=== PATIENT | female | born 1965 | race Two or more races ===

== ENCOUNTER 2020-01-31 10:56 | Outpatient (REF) | payer OTHER, SELFPAY | END 2020-01-31 10:57 | disposition home or self-care (01) | LOC: HO.LAB 10:56 | PROVIDERS: PCP Internal Medicine; Visit Provider Internal Medicine | DX: Z20.828 Contact with and (suspected) exposure to other viral communicable diseases (principal) | CPT/HCPCS: 87635 ==

== ENCOUNTER 2020-03-18 15:28 | Outpatient (REF) | payer OTHER, SELFPAY ==
--- NOTE | 2020-03-18 15:30 | US_ITS ---
EXAMINATION: US THYROID CLINICAL INFORMATION: Hypothyroidism, unspecified. COMPARISON: Ultrasound soft tissue head/neck thyroid dated 07/18/2018 and 11/27/2014. TECHNIQUE: Linear transducer nunes-scale and color Doppler examination with attention to the region of the thyroid. FINDINGS: SIZE: Measurements of the thyroid lobes and nodules are given in sagittal, anteroposterior and transverse dimensions respectively. Right Thyroid Lobe: 4.6 x 2.5 x 1.8 cm, volume 10.8 mL. Previously 5.0 x 2.3 x 1.7 cm, volume 10.4 mL. Parenchyma: The gland echotexture is heterogeneous. Thyroid vascularity is normal. Left Thyroid Lobe: 4.4 x 2.1 x 1.7 cm, volume 8.2 mL. Previously 4.8 x 1.6 x 1.5 cm, volume 6.0 mL. Parenchyma: The gland echotexture is heterogeneous. Thyroid vascularity is normal. Isthmus: 0.7 cm in maximum AP dimension. Previously 0.5 cm. RIGHT THYROID LOBE: No nodules. ISTHMUS: No nodules. LEFT THYROID LOBE: No nodules. NODES: No lymphadenopathy is seen in the tissue surrounding the thyroid gland. US/US thyroid IMPRESSION: Slightly heterogenous thyroid gland, but otherwise unremarkable. No nodules seen.
== END 2020-03-18 15:29 | disposition home or self-care (01) ==
LOC: HO.US 15:28
PROVIDERS: PCP Internal Medicine; Visit Provider Internal Medicine
DX: E03.9 Hypothyroidism, unspecified (principal)
CPT/HCPCS: 76536

== ENCOUNTER 2020-04-26 13:48 | Emergency (ER) | payer OTHER, SELFPAY ==
[2020-04-26 14:41] VITALS: BP 169/88; PULSE 71; RESP 16; TEMP 37.1; O2SAT 99; BMI 34.3
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
== END 2020-04-26 16:16 | disposition home or self-care (01) ==
PROVIDERS: Emergency Provider Emergency Medicine; PCP Internal Medicine
DX: S39.012A Strain of muscle, fascia and tendon of lower back, initial encounter (principal); I10 Essential (primary) hypertension; V43.52XA Car driver injured in collision with other type car in traffic accident, initial encounter; Y93.9 Activity, unspecified; Y92.410 Unspecified street and highway as the place of occurrence of the external cause; Y99.9 Unspecified external cause status; Z79.899 Other long term (current) drug therapy; Z87.891 Personal history of nicotine dependence
CPT/HCPCS: 99283

== ENCOUNTER 2020-04-28 10:56 | Outpatient (REF) | payer OTHER, SELFPAY ==
--- NOTE | 2020-04-28 11:00 | MM_ITS ---
EXAMINATION: MM SCREENING DIGITAL BREAST TOMOSYNTHESIS, BILATERAL CLINICAL INFORMATION: Screening. Asymptomatic. The lifetime risk of breast cancer based on the Tyrer-Cuzick Model is 17%. COMPARISON: Mammography: 10/13/2018, 09/20/2017, 08/23/2016 TECHNIQUE: Digital breast tomosynthesis is performed in both the craniocaudal and mediolateral oblique views along with computer-aided detection (CAD). Synthesized 2D images are generated from the tomosynthesis. FINDINGS: The breasts are heterogeneously dense, which may obscure small masses (ACR BI-RADS breast composition Category c). There are no significant masses, abnormal calcifications, or other abnormalities. Fibronodular parenchymal pattern with bilateral scattered punctate calcifications are similar to prior. There is a stable smooth oval nodule posterior 8:30 o'clock left breast. The axilla and skin contours are unremarkable. No significant changes. MM/MM tomosynthesis screening BI IMPRESSION: No mammographic evidence of malignancy. ASSESSMENT: BI-RADS 2: Benign RECOMMENDATION: Routine annual mammography screening. This patient's information was entered into a reminder system with a target due date for their next mammogram.
== END 2020-04-28 10:57 | disposition home or self-care (01) ==
LOC: HO.MAMMO 10:56
PROVIDERS: PCP Internal Medicine; Visit Provider Internal Medicine
DX: Z12.31 Encounter for screening mammogram for malignant neoplasm of breast (principal)
CPT/HCPCS: 77063; 77067

== ENCOUNTER 2020-06-11 11:54 | Outpatient (REF) | payer OTHER, SELFPAY | END 2020-06-11 11:55 | disposition home or self-care (01) | LOC: HO.LAB 11:54 | PROVIDERS: Visit Provider Internal Medicine | DX: Z20.822 Contact with and (suspected) exposure to COVID-19 (principal) | CPT/HCPCS: 36415; C9803; U0003; U0005 ==

== ENCOUNTER 2020-08-29 20:31 | Emergency (ER) | payer OTHER, SELFPAY ==
--- NOTE | ~2020-08-29 | XR_ITS ---
EXAMINATION: XR WRIST, LEFT CLINICAL INFORMATION: Fall. Pain and swelling. COMPARISON: None TECHNIQUE: PA, lateral, and oblique views of the left wrist. FINDINGS: Complete transverse impacted fracture through the distal radial metaphysis with mild dorsal angulation at the fracture site. Wrist is approximated. No other fractures are seen. Mild soft tissue swelling about the wrist. Metallic jewelry overlies the fourth proximal phalanx. No radiopaque foreign body. No soft tissue gas. XR/XR wrist LT min 3V IMPRESSION: Left wrist: Complete, impacted transverse fracture through the distal radial metaphysis with dorsal angulation at the fracture site
[2020-08-29 20:44] VITALS: BP 179/86; PULSE 78; RESP 20; TEMP 36.1; O2SAT 98; BMI 34.3
--- NOTE | 2020-08-29 21:46 | ED_ITS ---
HPI - Extremity Problem General Chief complaint: Extremity Injury, Upper Stated complaint: Arm pain/Fall Time Seen by Provider: 08/29/20 21:46 Source: patient Mode of arrival: ambulatory History of Present Illness HPI Narrative: 55-year-old female who presents from home and states that she was roller skating when she fell onto her left wrist. Patient reports inability to move the wrist but able to bend her fingers and states that she noted swelling afterwards. She denies any head strike or loss of consciousness. Otherwise, denies numbness/tingling into the fingers. Related Data Home Medications Medication Instructions Recorded Confirmed amlodipine 10 mg tablet 10 mg PO DAILY 02/04/20 05/18/20 clotrimazole 1 % topical solution TOPICAL 02/04/20 05/18/20 levothyroxine 125 mcg tablet 125 mcg PO DAILY 02/04/20 05/18/20 lisinopril 20 mg tablet 20 mg PO DAILY 02/04/20 05/18/20 Previous Rx's Medication Instructions Recorded ibuprofen 600 mg tablet 600 mg PO Q6H PRN #30 tab 04/30/20 cyclobenzaprine 5 mg tablet 5 mg PO TID PRN #30 tab 05/18/20 triamcinolone acetonide 0.5 % 1 appl TOPICAL TID #15 g 08/20/20 topical cream Allergies Allergy/AdvReac Type Severity Reaction Status Date / Time mite-Dermatophagoides Allergy Unknown RASH, Verified 08/29/20 20:48 pteronyssinus SWELLING [DUST MITE] pollen extracts [POLLEN] Allergy Unknown RUNNY Verified 08/29/20 20:48 NOSE, ITCHY EYES Review of Systems Review of Systems: As stated in HPI 10 point review of systems is otherwise negative. PMFSH Past Medical History Source: nursing notes reviewed Medical History Hypercholesterolemia Hypertension Hypothyroid Left fibular fracture Obesity (BMI 30-39.9) Vitamin D deficiency Surgical History H/O tubal ligation Family History Family History Father Medical history unknown Mother Cancer CVD (cardiovascular disease) Diabetes Paternal Grandmother Esophageal cancer Maternal Uncle Myocardial infarction Social History Social History Alcohol intake: never Smoking Status: Former smoker Smoked in Last 30 Days: No Use of substances other than those prescribed or required for medical reasons: No Any prior treatment program specific to substance use: No Advance Directives: No Advance Directives Information Provided: No Patient : No Physical Exam Vital Signs: Vital Signs: Last Vital Signs Temp 97.0 F 08/29/20 20:44 Pulse 78 08/29/20 20:44 Resp 20 08/29/20 20:44 BP 179/86 H 08/29/20 20:44 Pulse Ox 98 08/29/20 20:44 Body Mass Index 34.3 VITAL SIGNS: Reviewed. GENERAL: Well developed, well nourished, in no acute distress. HEAD: Normocephalic/atraumatic EYES: PERRLA, EOMI NOSE: Nares patent bilateral OROPHARYNX: no oral lesions noted, posterior pharynx clear NECK: Supple, no adenopathy LUNGS: Normal breath sounds. No adventitious sounds or accessory muscle use. SpO2<98> CARDIOVASCULAR: Regular rate and rhythm without noted murmurs ABDOMEN: Soft, non-tender, non-distended with bowel sounds. LEFT UPPER EXTREMITY: Deformity noted at dorsal aspect of wrist with mild overlying swelling, sensation intact in all fingers as well as movement, capillary refill less than 3 seconds, palpable radius/ulnar NEUROLOGIC: Alert and oriented x 4. Strength and sensation to light touch were grossly intact x 4. Course Course Course Narrative: 55-year-old female with history and clinical presentation consistent with FOOSH fracture and placed in sugar-tong splint as well as being provided with combination analgesics for pain. She was discharged in stable condition with instructions to follow-up with orthopedics on Monday morning. Discharge Plan Discharge Clinical Impression: Colles' fracture Patient Disposition: Home, Self-Care Instructions: Wrist Fracture in Adults (ED), Splint Care (ED) Additional Instructions: 1. Tylenol 1000 mg, por v?a oral, cada 6 horas seg?n sea necesario para controlar el dolor. No exceda los 4000 mg en 24 horas. 2. Ibuprofeno 400 mg, por v?a oral con leche o alimentos, cada 6 horas seg?n sea necesario para controlar el dolor. 3. Aplique hielo sobre la piel no expuesta tari 10 a 15 minutos, de 3 a 4 veces al d?a. 4. Opal un seguimiento con el especialista en ortopedia que se indica en la referencia a continuaci?n. No dude en volver al servicio de urgencias por cualquier empeoramiento gabriel de dylan s?ntomas. Prescriptions: No Action cyclobenzaprine 5 mg tablet 5 mg PO TID PRN (Reason: muscle spasm) Qty: 30 RF: 0 triamcinolone acetonide 0.5 % cream 1 appl topical TID Qty: 15 RF: 8 clotrimazole 1 % solution topical RF: 0 amlodipine 10 mg tablet 10 mg PO DAILY RF: 0 lisinopril 20 mg tablet 20 mg PO DAILY RF: 0 levothyroxine 125 mcg tablet 125 mcg PO DAILY RF: 0 ibuprofen 600 mg tablet 600 mg PO Q6H PRN (Reason: pain) Qty: 30 RF: 1 Referrals: Po,Dakota Guerrero MD [Primary Care Provider] - 2 days Cordell Ramirez MD [Physician] - 2 days (Evaluation and management of Colles fracture (left) and placed in a sugar-tong splint) Print Language: Vietnamese
[2020-08-29] MEDS: Acetaminophen 325 MG TABLET 975 MG PO (22:26)
[2020-08-29] MEDS: Ketorolac Tromethamine 15 MG/ML VIAL IM (22:26)
--- NOTE | 2020-08-29 23:24 | PC.NURSE ---
PT SPLINT PLACE TO LEFT ARM SUGAR TONG CHECK BY DR. TAVAREZ. +CMS TO FINGERS.
== END 2020-08-29 23:25 | disposition home or self-care (01) ==
PROVIDERS: Emergency Provider Student in an Organized Health Care Education/Training Program; PCP Internal Medicine
DX: S52.532A Colles' fracture of left radius, initial encounter for closed fracture (principal); V00.121A Fall from non-in-line roller-skates, initial encounter; Y93.51 Activity, roller skating (inline) and skateboarding; Y92.480 Sidewalk as the place of occurrence of the external cause; Y99.9 Unspecified external cause status
CPT/HCPCS: 29125; 73110; 96372; 99284; J1885

== ENCOUNTER 2020-09-01 11:09 | Outpatient (REF) | payer OTHER, SELFPAY ==
--- NOTE | ~2020-09-01 | XR_ITS ---
EXAMINATION: XR WRIST, LEFT CLINICAL INFORMATION: Left wrist pain. COMPARISON: 08/29/2020 TECHNIQUE: PA, lateral, and oblique views of the left wrist. FINDINGS: There is again noted to be comminuted fracture involving the distal left radius and nondisplaced distal ulnar styloid. There is mild dorsal angulation of the radiocarpal joint. There appears to be some more displacement of fracture fragments both dorsally and volarly; however, this may be related to differences in angulation of the lateral images as no change in alignment is appreciated on the AP and oblique views of the wrist. The distal radial fracture is intra-articular. XR/XR wrist LT min 3V IMPRESSION: Comminuted distal radial and ulnar styloid fractures as described. No definite significant change is appreciated.
== END 2020-09-01 11:10 | disposition home or self-care (01) ==
LOC: HO.HOSX 11:09
PROVIDERS: PCP Internal Medicine; Visit Provider Orthopaedic Surgery
DX: M25.532 Pain in left wrist (principal); S52.515S Nondisplaced fracture of left radial styloid process, sequela; W01.0XXS Fall on same level from slipping, tripping and stumbling without subsequent striking against object, sequela; E78.00 Pure hypercholesterolemia, unspecified; E03.9 Hypothyroidism, unspecified; I10 Essential (primary) hypertension; E66.9 Obesity, unspecified; E55.9 Vitamin D deficiency, unspecified; J30.1 Allergic rhinitis due to pollen; J30.89 Other allergic rhinitis
CPT/HCPCS: 73110; 99202

== ENCOUNTER → 2020-09-03 12:52 | Outpatient (BNVA) | payer OTHER, SELFPAY | PROVIDERS: PCP Internal Medicine; Visit Provider Physician Assistant ==

== ENCOUNTER 2020-09-07 09:17 | Outpatient (REF) | payer OTHER, SELFPAY ==
--- NOTE | ~2020-09-07 | XR_ITS ---
EXAMINATION: XR WRIST, LEFT CLINICAL INFORMATION: Left wrist pain. COMPARISON: Multiple priors, most recent left wrist radiographs dated 09/01/2020. TECHNIQUE: PA, lateral, and oblique views of the left wrist. FINDINGS: Redemonstration of a comminuted distal radial fracture in unchanged anatomic alignment with mild new bone/callus formation. Nondisplaced ulnar styloid fracture, unchanged. Circumferential soft tissue swelling. XR/XR wrist LT min 3V IMPRESSION: Redemonstration of distal radial and ulnar styloid fracture is in unchanged anatomic alignment. Mild new bone/callus formation associated with the distal radial fracture.
== END 2020-09-07 09:18 | disposition home or self-care (01) ==
LOC: HO.HOSX 09:17
PROVIDERS: Visit Provider Orthopaedic Surgery
DX: S52.615A Nondisplaced fracture of left ulna styloid process, initial encounter for closed fracture (principal); S52.502A Unspecified fracture of the lower end of left radius, initial encounter for closed fracture; W18.39XA Other fall on same level, initial encounter; Y93.51 Activity, roller skating (inline) and skateboarding; Y92.9 Unspecified place or not applicable; Y99.9 Unspecified external cause status
CPT/HCPCS: 25600; 73110; 99212

== ENCOUNTER 2020-09-12 04:34 | Emergency (ER) | payer OTHER, SELFPAY ==
[2020-09-12 04:47] VITALS: BP 209/110; PULSE 87; RESP 20; TEMP 35.9; O2SAT 96; BMI 35.3
[2020-09-12 07:24] VITALS: BP 209/105; PULSE 78; RESP 20; TEMP 36.6; O2SAT 98; BMI 34.3
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
== END 2020-09-12 09:03 | disposition home or self-care (01) ==
PROVIDERS: Emergency Provider Emergency Medicine; PCP Internal Medicine
DX: M79.632 Pain in left forearm (principal); S52.532D Colles' fracture of left radius, subsequent encounter for closed fracture with routine healing; X58.XXXD Exposure to other specified factors, subsequent encounter
CPT/HCPCS: 99283

== ENCOUNTER 2020-09-15 14:26 | Outpatient (REF) | payer OTHER, SELFPAY ==
--- NOTE | ~2020-09-15 | XR_ITS ---
EXAMINATION: XR WRIST, LEFT CLINICAL INFORMATION: Pain COMPARISON: 09/07/2020 and studies dating back to 08/29/2020 . TECHNIQUE: PA, lateral, and oblique views of the left wrist. FINDINGS: There is again noted to be comminuted intra-articular fracture of the distal left radius with no change in alignment compared to previous studies. There appears to be similar mild amount of periostitis present compared to previous study but without bony union being appreciated. Nondisplaced fracture of the left ulna styloid again seen. XR/XR wrist LT min 3V IMPRESSION: No significant change in appearance of nondisplaced ulnar styloid fracture and intra-articular comminuted fracture of the left distal radius.
== END 2020-09-15 14:27 | disposition home or self-care (01) ==
LOC: HO.HOSX 14:26
PROVIDERS: PCP Internal Medicine; Visit Provider Orthopaedic Surgery
DX: M25.532 Pain in left wrist (principal); S52.502A Unspecified fracture of the lower end of left radius, initial encounter for closed fracture; S52.615S Nondisplaced fracture of left ulna styloid process, sequela
CPT/HCPCS: 29075; 73110; 99212

== ENCOUNTER 2020-09-23 10:57 | Outpatient (REF) | payer OTHER, SELFPAY ==
--- NOTE | ~2020-09-23 | XR_ITS ---
EXAMINATION: XR WRIST, LEFT CLINICAL INFORMATION: Left wrist pain. Fracture. COMPARISON: Multiple priors, most recent left wrist radiographs dated 09/15/2020. TECHNIQUE: PA, lateral, and oblique views of the left wrist. FINDINGS: Redemonstration of a mildly displaced, comminuted distal radial fracture in unchanged anatomic alignment. Stable nondisplaced ulnar styloid fracture. No significant new bone/callus formation. XR/XR wrist LT min 3V IMPRESSION: Comminuted distal radial fracture and ulnar styloid fracture in unchanged anatomic alignment.
== END 2020-09-23 10:58 | disposition home or self-care (01) ==
LOC: HO.HOSX 10:57
PROVIDERS: Visit Provider Orthopaedic Surgery
DX: S52.572D Other intraarticular fracture of lower end of left radius, subsequent encounter for closed fracture with routine healing (principal)
CPT/HCPCS: 29075; 73110; 99212

== ENCOUNTER 2020-10-01 08:10 | Outpatient (REF) | payer OTHER, SELFPAY ==
--- NOTE | ~2020-10-01 | XR_ITS ---
EXAMINATION: XR WRIST, LEFT CLINICAL INFORMATION: Left wrist pain. COMPARISON: 09/23/2020 and studies dating back to 08/29/2020 TECHNIQUE: PA, lateral, and oblique views of the left wrist. FINDINGS: There is noted to be a nondisplaced left ulnar styloid fracture with a small amount of periosteal new bone formation. There is again noted to be a comminuted intra-articular fracture of the distal radius with no change in alignment with mild dorsal angulation radiocarpal joint. There has been an increase in periosteal new bone formation present with some regions of sclerosis about the fracture sites. XR/XR wrist LT min 3V IMPRESSION: Healing fractures about the left ulnar styloid and distal intra-articular comminuted left radial fracture without change in alignment.
== END 2020-10-01 08:11 | disposition home or self-care (01) ==
LOC: HO.HOSX 08:10
PROVIDERS: Visit Provider Physician Assistant
DX: S52.615D Nondisplaced fracture of left ulna styloid process, subsequent encounter for closed fracture with routine healing (principal); S52.502D Unspecified fracture of the lower end of left radius, subsequent encounter for closed fracture with routine healing; X58.XXXD Exposure to other specified factors, subsequent encounter
CPT/HCPCS: 73110; 99212

== ENCOUNTER 2020-10-05 10:11 | Outpatient (REF) | payer OTHER, SELFPAY ==
--- NOTE | ~2020-10-05 | XR_ITS ---
EXAMINATION: XR WRIST, LEFT CLINICAL INFORMATION: Pain left wrist COMPARISON: Left wrist 10/01/2020 TECHNIQUE: PA, lateral, and oblique views of the left wrist. FINDINGS: There is a slowly healing distal radial comminuted fracture with intra-articular extension. There is some callus formation seen on the radial aspect. There is mild dorsal angulation. Nondisplaced ulnar styloid process fracture again visualized. There is some callus formation visualized. There is moderate wrist soft tissue swelling. XR/XR wrist LT min 3V IMPRESSION: Slowly healing distal radial comminuted fracture with intra-articular extension and minimal callus formation. Nondistended a loss of process fracture with minimal callus formation seen.
== END 2020-10-05 10:12 | disposition home or self-care (01) ==
LOC: HO.HOSX 10:11
PROVIDERS: Visit Provider Orthopaedic Surgery
DX: M25.532 Pain in left wrist (principal); S52.502D Unspecified fracture of the lower end of left radius, subsequent encounter for closed fracture with routine healing; S52.615D Nondisplaced fracture of left ulna styloid process, subsequent encounter for closed fracture with routine healing
CPT/HCPCS: 73110; 99212

== ENCOUNTER 2020-10-19 09:34 | Outpatient (REF) | payer OTHER, SELFPAY ==
--- NOTE | ~2020-10-19 | XR_ITS ---
EXAMINATION: XR WRIST, LEFT CLINICAL INFORMATION: Left wrist pain. COMPARISON: 10/05/2020 left wrist radiographs. TECHNIQUE: PA, lateral, and oblique views of the left wrist. FINDINGS: Again seen are fractures of the distal radius and ulnar styloid without evidence for minimal interval healing. The ulnar styloid fracture remains nonunited with increased cortication of the fragments. Persistent mild soft tissue swelling is seen. XR/XR wrist LT min 3V IMPRESSION: Mild interval healing of distal radial and ulnar fractures with persistent soft tissue swelling.
== END 2020-10-19 09:35 | disposition home or self-care (01) ==
LOC: HO.HOSX 09:34
PROVIDERS: Visit Provider Orthopaedic Surgery
DX: S52.532D Colles' fracture of left radius, subsequent encounter for closed fracture with routine healing (principal)
CPT/HCPCS: 73110; 99212

== ENCOUNTER 2020-12-22 10:00 | Outpatient (RCR) | payer OTHER, SELFPAY ==
--- NOTE | 2020-10-29 14:58 | MHC.OT.OEV ---
[address] [phone] F: [phone] Occupational Therapy Evaluation Diagnosis: Left Colles fx and non-displaced ulnar styloid fx Date of Onset: 08/29/20 Attending Provider: Dr Murphy Prescribed Treatment: Eval and Treat History of Current Condition: Pt was rollerblading and slipped while she was standing and holding the rail, rollerblade went out from under her and she fell back on her hand/wrist. Pt was seen in the ED that day, placed in sugar-tong splint and referred to [facility]. Plan was for surgical repair w/ ORIF 09/08/20, but patient declined surgery. Wrist was placed in short cast. She has since followed up with the doctor, cast removed 09/29/20 and wearing removable pre-eloisa orthosis. She is now referred to OT for further rehab. 10/19/20: Radiographs three views of her left wrist were taken and reviewed by me today in clinic. They show a comminuted intra-articular distal radius fracture with Good evidence of interval bony healing. It appears that she now has approximately 15-18 degrees of dorsal tilt on the lateral view. no change in alignment today. 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 Living Situation, Family and/or Social Support: Lives w/ her son Current Level of Function and Occupation Self Care, Employment, Leisure: Still working, avoiding use of left hand, using dominant right hand Starting to use hand for little things Son is helping w/ opening containers, bottles, cooking Sleep: Pain at times with some numbness in fingers Pain Assessment Pain Score: 3 Pain Scale Used: Numeric (0 - 10) Pain Location and Description: Pt reports burning/hot pain around the wrist Increasing pain w/ movement of wrist Aggravating Factors: Movement of wrist Alleviating Factors: Cold Skin and Soft Tissue Assessment Skin and Soft Tissue: Swelling Comments: Left wrist edema Sensory Assessment Temperature: Light Touch: Proprioception: Vibration: Comments: Occasional numbness and tingling in small finger Edema Assessment Upper Extremity: Left Impaired Lower Extremity: Comments: Wrist distal to US Left 15.8 cm Right 15.0 cm Dexterity Assessment Dexterity: WFL Comments: Special Tests Comments: AROM(PROM) Strength Cervical Cervical Flexion: Cervical Extension: Cervical Lateral Flexion: Cervical Rotation: Comments: Shoulder Flexion: Extension: Abduction: Internal Rotation: External Rotation: Comments: WFL Flexion: Extension: Abduction: Internal Rotation: External Rotation: Comments: Elbow Flexion: Extension: Pronation: R 75 L 62 Supination: R 85 L 50 Comments: Flexion: Extension: Pronation: Supination: Comments: Wrist Flexion: R 65 L 42 Extension: R 54 L 22 Ulnar Deviation: R 40 L 24 Radial Deviation: R 20 L 16 Comments: Flexion: Extension: Ulnar Deviation: Radial Deviation: Comments: Thumb Thumb CMC Flexion: Thumb MCP Flexion: Thumb IP Flexion: Radial Abduction: Palmar Abduction: [place] (Kapandji 0-10): Comments: WFL Digits Index MCP: PIP: DIP: Long MCP: PIP: DIP: Ring MCP: PIP: DIP: Small MCP: PIP: DIP: Comments: WFL Gross Grasp: R 65lb L 5lb Lateral Pinch: R 15lb L 4 lb Two-Point Pinch: R 5 lb L 1 lb Three-Jaw Esequiel: R 10 lb L 2 lb Comments: Patient Education Primary Language: Sub Assembly Team 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 Patient demonstrates Patient verbalizes Barriers to Learning: None Readiness for Learning: Accepting Who was educated? Patient Comments: [facility] #[id number] Plan of Care Assessment: 55 yo right hand dominant female presents about 8 weeks s/p FOOSH injury w/ left Colles fx and non-displaced ulnar styloid fx. She was originally scheduled for surgical repair w/ ORIF of distal radius, but declined surgery and was placed in cast. She is now in removable pre-eloisa orthosis and able to remove for range and hygiene. On assessment, she has decreased range in wrist/forearm, but good movement and use of thumb and digits. She is reporting mild ulnar nerve symptoms in hand. She will benefit from continued therapy services for optimal functional return w/ progression of range and strength. STG Duration: 2 weeks Short Term Goals: Pt to wean from orthosis for light daytime activities and self care 1/10 resting pain Forearm pro to 60 degrees Wrist flex to 50 degrees Wrist ext to 40 degrees Gross grasp >10lb LTG Duration: 6 weeks Skilled Nursing Goals: Gross grasp >30lb Pain free at rest Quickdash score <35 pts Forearm pro 75 degrees Wrist flex 60 degrees Wrist ext 50 degrees Good use of left hand w/ moderate bimanual tasks Frequency and Duration: The patient will be seen 2x/wk for 6 weeks Treatment Plan: Therapeutic Exercise Therapeutic Activity Home Exercise Program Patient Education Desensitization/Sensory Re-ed Edema Control ADL Training Ultrasound Iontophoresis Paraffin Fluidotherapy MHP Cold Packs Joint Mobilization Soft Tissue Mobilization Kinesiotaping Electronically Signed By: Lo Dimas OTR/L Reviewed/agree with student documentation: N/A Therapist: Please sign and return to therapist, Thank you for your referral.
--- NOTE | 2021-01-19 08:21 | MHC.OT.DC ---
[address] [phone] F: [phone] Occupational Therapy Discharge Note Provider: Dr Murphy Diagnosis: Left Colles fx and non-displaced ulnar styloid fx Date of Surgery: Date of Evaluation: 10/29/20 Date of Discharge: Treatments to Date: 17 Cancellations to Date: 1 No Shows to Date: 1 Discharge Status: Patient Elected to Stop Discharge Summary: 13 WEEKS SINCE DOI, REPORTS ONGOING FRUSTRATION WITH PAIN THROUGH ULNAR WRIST AND LIMITATIONS IN WRIST FLEXION. 35 deg. Pt may benefit from a serial flexion orthosis. Pt has not rescheduled after she cancelled and no showed her last two scheduled appt. Electronically Signed By: IFRAH PARSONS OT CHT CLT Reviewed/agree with student documentation: N/A Therapist: Please Sign and return to therapist, thank you for your referral.
== END 2021-01-19 08:26 | disposition home or self-care (01) ==
LOC: HO.OT 10:00
PROVIDERS: PCP Internal Medicine; Visit Provider Orthopaedic Surgery
DX: S52.615S Nondisplaced fracture of left ulna styloid process, sequela (principal); S52.532D Colles' fracture of left radius, subsequent encounter for closed fracture with routine healing
CPT/HCPCS: 29125; 97033; 97035; 97110; 97140; 97165; 97530; 97760

== ENCOUNTER 2021-04-21 17:35 | Emergency (ER) | payer OTHER, SELFPAY ==
[2021-04-21 19:27] VITALS: BP 181/96; PULSE 70; RESP 20; TEMP 35.9; O2SAT 96; BMI 34.3
[2021-04-21 20:05] LABS: MANUAL DIFF FLAG NO
[2021-04-21 20:17] LABS: Basophils Absolute Auto 0.1 X10*3/uL (0.0-0.2); Basophils Percent Auto 0.5 % (0-2); Eosinophils Absolute Auto 0.1 X10*3/uL (0.0-0.4); Eosinophils Percent Auto 0.5 % (0-4); Hematocrit 42.8 % (37.0-47.0); Imm Gran Abs Auto 0.04 X10*3/uL (0.00-0.03); Imm Gran Pct Auto 0.4 % (0.0-0.4); Lymphocytes Absolute Auto 2.7 X10*3/uL (1.2-4.9); Lymphocytes Percent Auto 24.8 % (20-40); Mean Corpuscular HGB Conc 32.7 g/dl (31.0-35.0); Mean Corpuscular Hemoglobin 29.5 pg (27.0-33.0); Mean Corpuscular Volume 90.1 fL (80.0-98.0); Mean Platelet Volume 11.4 fL (9.4-12.3); Monocytes Absolute Auto 0.6 X10*3/uL (0.1-1.2); Monocytes Percent Auto 5.2 % (2-11); Neutrophils Absolute Auto 7.5 x10*3/uL (2.0-8.3); Neutrophils Percent Auto 68.6 % (45-73); Platelet Count 194 X10*3/uL (160-400); Red Blood Count 4.75 X10*6/uL (4.20-5.50); Red Cell Distribution Width 13.1 % (11.0-16.0); White Blood Count 10.8 X10*3/uL (4.8-10.8)
[2021-04-21 20:27] LABS: Alanine Aminotransferase 15 U/L (0-31); Albumin Level 4.3 g/dL (3.5-5.0); Alkaline Phosphatase 102 U/L (39-117); Anion Gap 10 (12-20); Aspartate Amino Transferase 14 U/L (5-31); Bilirubin Direct 0.3 mg/dL (0.0-0.5); Bilirubin Total 0.9 mg/dL (0.0-1.0); Blood Urea Nitrogen 15 mg/dL (9-16); Carbon Dioxide 29 mmol/L (22-29); Chloride 104 mmol/L (96-108); Creatinine Clr Calc Pharmacy 68.6; Estimated Glomerular Filt Rate > 60; Glucose Random 93 mg/dL (60-115); Lipase 32 U/L (8-78); Sodium 139 mmol/L (135-145); Total Protein 7.3 g/dL (6.5-8.0)
--- NOTE | 2021-04-21 20:41 | ED.MEDCLEAR ---
HPI - Medical Clearance General Chief complaint: Body Fluid Exposure Stated complaint: exposure (finger stick) Time Seen by Provider: 04/21/21 19:41 Source: patient and police Mode of arrival: ambulatory Limitations: no limitations History of Present Illness HPI Narrative: Patient presents to ED for needlestick exposure. 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 Patient states while cleaning the patient the insulin needle cap came off and struck her. Patient states was a dirty needle. Patient states her patient is 64-year-old bed-bound and her employer Told her that patient has no history of HIV or any other communicable diseases. Related Information Home Medications Medication Instructions Recorded Confirmed amlodipine 10 mg tablet 10 mg PO DAILY 02/04/20 04/09/21 clotrimazole 1 % topical solution TOPICAL 02/04/20 04/09/21 Previous Rx's Medication Instructions Recorded triamcinolone acetonide 0.5 % 1 appl TOPICAL TID #45 g 11/05/20 topical cream levothyroxine 125 mcg tablet 125 mcg PO DAILY #90 tab 01/15/21 albuterol sulfate 90 mcg/actuation 2 puff INHALATION QID PRN #8.5 g 04/09/21 aerosol inhaler (ProAir HFA) blood pressure monitor #1 ea 04/09/21 lisinopril 40 mg tablet 40 mg PO DAILY 30 Days #30 tab 04/09/21 Allergies Allergy/AdvReac Type Severity Reaction Status Date / Time mite-Dermatophagoides Allergy Unknown RASH, Verified 04/09/21 13:25 pteronyssinus SWELLING [DUST MITE] pollen extracts [POLLEN] Allergy Unknown RUNNY Verified 04/09/21 13:25 NOSE, ITCHY EYES Review of Systems Review of Systems: Needlestick Yes all other systems are reviewed and are negative [facility] Past Medical History Medical History (Updated 04/21/21 @ 20:58 by KATHY Duron) Contact dermatitis Hypercholesterolemia Hypertension Hypothyroid Left fibular fracture Obesity (BMI 30-39.9) Vitamin D deficiency Surgical History H/O tubal ligation Family History Family History Father Medical history unknown Mother Cancer CVD (cardiovascular disease) Diabetes Paternal Grandmother Esophageal cancer Maternal Uncle Myocardial infarction Social History Social History Housing: Apartment Alcohol intake: current Alcohol intake frequency: holidays/special occasions only Patient Tobacco Use Status: Former Tobacco user Tobacco use type: Cigarette e-Cigarette/Vaping Use: Never Used Second Hand Smoke Exposure: No Advance Directives: No Advance Directives Information Provided: Yes service: No 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al status: employed 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 Physical Exam Vital Signs: Vital Signs: Last Vital Signs Temp 96.6 F L 04/21/21 19:27 Pulse 70 04/21/21 19:27 Resp 20 04/21/21 19:27 BP 181/96 H 04/21/21 19:27 Pulse Ox 96 04/21/21 19:27 BMI result Body Mass Index 34.3 Const: General: cooperative, healthy appearing, comfortable, no acute distress, well developed, alert, awake and Physically active Orientation/consciousness: oriented to time and patient oriented x3 HENMT: Head: Yes normal to inspection, Yes No palpable skull fracture present, Yes normocephalic and Yes atraumatic Eyes: General: appearance normal, both eyes and all related structures Neck: Neck: Yes normal visual inspection, Yes full ROM, Yes no lymphadenopathy, Yes no meningeal signs, Yes trachea midline, Yes supple, No anterior neck swelling and No tender Chest: Chest palpation & inspection: normal inspection of the chest and normal palpation of entire chest wall Resp: Effort & Inspection: normal respiratory effort and able to speak in complete sentences Auscultation: clear to auscultation bilaterally Cardio: Jugular venous distension: no JVD Heart sounds: S1 normal heart sound present and S2 normal heart sound present GI: Inspection: Yes normal to inspection and No abdominal wall ecchymosis Palpation (GI): Soft to palpation, not firm, nontender, no guarding and not rigid : General: No CVA tenderness and Yes no CVA tenderness Back/Spine/Pelvis: Back: no CVA tenderness, No CVA tenderness and No back tenderness Skin: General skin exam: no rashes or lesions noted and elasticity normal Neuro: General: oriented to time, patient oriented x3, gait normal, Normal light touch and pain sensation, no meningeal signs and CN's II-XI intact bilaterally Cranial nerves: Yes CN's II-XII intact bilaterally Extrem: General: Yes normal to inspection and Yes full ROM Hand/finger images: 1. Negative for laceration. Can not see any point of entry. Negative for erythema, ecchymosis, bleeding, swelling, redness, or deformity. Capillary refill intact. Motor/neuro/vascular exam of extremity intact Psych: Appearance: grossly normal, well kempt and not disheveled Course Course Course Narrative: Needlestick. Reevaluation(s) Reevaluation #1: Patient agreeable to do post exposure labs. Patient presently does not want to take any HIV prophylaxis medication. Patient states she will ask her job for patient to get tested and she states she knows patient's medical history and patient is bedbound and unlikely has HIV. She states patient's current medical record negative for any HIV or hepatitis disease. Patient educated on risk of transmission of HIV and also educated on window for HIV prophylaxis. Patient will follow up tomorrow with work connection. Labs called and states HIV and hepatitis test will come back tomorrow. Tdap ordered Time: 20:54 MDM - Medical Clearance MDM Narrative Medical decision making narrative: Needlestick Lab Data Result diagrams: 04/21/21 20:01 04/21/21 20:01 Labs: Lab Results 04/21/21 04/21/21 Range/Units 20:01 20:01 WBC 10.8 (4.8-10.8) X10*3/uL RBC 4.75 (4.20-5.50) X10*6/uL Hgb 14.0 (12.0-16.0) g/dl Hct 42.8 (37.0-47.0) % MCV 90.1 (80.0-98.0) fL MCH 29.5 (27.0-33.0) pg MCHC 32.7 (31.0-35.0) g/dl RDW 13.1 (11.0-16.0) % Plt Count 194 (160-400) X10*3/uL MPV 11.4 (9.4-12.3) fL Immature Gran % (Auto) 0.4 (0.0-0.4) % Neut % (Auto) 68.6 (45-73) % Lymph % (Auto) 24.8 (20-40) % Turner % (Auto) 5.2 (2-11) % Eos % (Auto) 0.5 (0-4) % Baso % (Auto) 0.5 (0-2) % Lymph # (Auto) 2.7 (1.2-4.9) X10*3/uL Turner # (Auto) 0.6 (0.1-1.2) X10*3/uL Eos # (Auto) 0.1 (0.0-0.4) X10*3/uL Baso # (Auto) 0.1 (0.0-0.2) X10*3/uL Abs Immat Gran (auto) 0.04 H (0.00-0.03) X10*3/uL Absolute Neuts (auto) 7.5 (2.0-8.3) x10*3/uL Absolute Nucleated RBC 0.000 (0.0-0.012) X10*3/uL Nucleated RBC % (auto) 0.0 (0.0-0.2) /100WBC Sodium 139 (135-145) mmol/L Potassium 4.0 (3.3-5.1) mmol/L Chloride 104 (96-108) mmol/L Carbon Dioxide 29 (22-29) mmol/L Anion Gap 10 L (12-20) BUN 15 (9-16) mg/dL Creatinine 0.81 (0.5-1.4) mg/dL Estim Creat Clear Calc 68.6 Estimated GFR > 60 Random Glucose 93 (60-115) mg/dL Calcium 10.0 (8.4-10.2) mg/dL Total Bilirubin 0.9 (0.0-1.0) mg/dL Direct Bilirubin 0.3 (0.0-0.5) mg/dL AST 14 (5-31) U/L ALT 15 (0-31) U/L Alkaline Phosphatase 102 (39-117) U/L Total Protein 7.3 (6.5-8.0) g/dL Albumin 4.3 (3.5-5.0) g/dL Lipase 32 (8-78) U/L Discharge Plan Discharge Clinical Impression: Exposure to body fluids by contaminated hypodermic needlestick Patient Disposition: Home, Self-Care Instructions: Needle Stick Injuries (ED), Body Substance Exposure (ED) Additional Instructions: You will need to follow-up tomorrow with [facility] work connection for lab results and further evaluation. As you stated you will get patient tested for HIV. There is a 72 hour window to take HIV prophylaxis. Please follow-up with your primary care provider. Return to the ED for any concerning symptoms. Prescriptions: No Action levothyroxine 125 mcg tablet 125 mcg PO DAILY Qty: 90 RF: 1 triamcinolone acetonide 0.5 % cream 1 appl topical TID Qty: 45 RF: 0 clotrimazole 1 % solution topical RF: 0 amlodipine 10 mg tablet 10 mg PO DAILY RF: 0 lisinopril 40 mg tablet 40 mg PO DAILY 30 Days Qty: 30 RF: 3 albuterol sulfate [ProAir HFA] 90 mcg/actuation HFA aerosol inhaler 2 puff inhalation QID PRN (Reason: shortness of breath or wheezing) Qty: 8.5 RF: 0 (DME) blood pressure monitor Kit See Rx Instructions .ROUTE .MEDSUPPLY Qty: 1 RF: 0 Referrals: [facility] [Outside] - 2 days (Please follow-up with work connection tomorrow) Stand Alone Forms: Work/School Release Interventions: ED Discharge Assessment Last Done: 04/21/21 21:13 Discharge Date/Time: 04/21/21 21:15 Print Language: Pashto
[2021-04-21] MEDS: Diphth,Pertus(ACell),Tet Adult 0.5 ML SYRINGE IM (21:06)
[2021-04-22 08:09] LABS: HIV AB/AG Nonreactive (Nonreactive); HIV Num 1 0.08 S/CO (0.00-0.99)
[2021-04-22 08:12] LABS: HBS Num1 2.31 mIU/mL (0-7.99); Hepatitis B Surface Antigen Negative (Negative); ~HepC Num1 0.11 S/CO (0.00-0.79); ~Hepatitis B Surface Antibody NONREACTIVE (Nonreactive); ~Hepatitis C Antibody Nonreactive (Nonreactive)
[2021-04-22 08:43] LABS: Hepatitis B Core Antibody Nonreactive (Nonreactive)
== END 2021-04-21 21:15 | disposition home or self-care (01) ==
PROVIDERS: Physician Assistant; Emergency Provider Emergency Medicine Emergency Medical Services; PCP Internal Medicine
DX: Z04.2 Encounter for examination and observation following work accident (principal); Z77.21 Contact with and (suspected) exposure to potentially hazardous body fluids
CPT/HCPCS: 36415; 80048; 80076; 83690; 85025; 86704; 86706; 86803; 87340; 87389; 90471; 90715; 99283; 99284

== ENCOUNTER 2021-04-29 15:38 | Outpatient (REF) | payer OTHER, SELFPAY ==
--- NOTE | 2021-04-29 17:14 | PFT_ITS ---
Forced vital capacity is slightly decreased. FEV1, [id number] are normal. MVV slightly decreased. Postbronchodilator therapy, there is no significant change. Total lung capacity and residual volume are slightly decreased. Diffusion capacity normal. CONCLUSION: A mild degree of restrictive pulmonary disorder. No significant obstructive airway disorder. Clinical correlation recommended. MD DRAKE Garzon/KAYLIN / [id number]
== END 2021-04-29 15:39 | disposition home or self-care (01) ==
LOC: HO.RESP 15:38
PROVIDERS: PCP Internal Medicine; Visit Provider Internal Medicine
DX: J45.909 Unspecified asthma, uncomplicated (principal)
CPT/HCPCS: 94060; 94727; 94729

== ENCOUNTER 2021-11-19 13:18 | Outpatient (REF) | payer OTHER, SELFPAY ==
--- NOTE | ~2021-11-19 | MM_ITS ---
EXAMINATION: MM SCREENING DIGITAL BREAST TOMOSYNTHESIS, BILATERAL CLINICAL INFORMATION: Screening. Asymptomatic. The lifetime risk of breast cancer based on the Tyrer-Cuzick Model is 8%. COMPARISON: Mammography: 04/28/2020, 10/13/2018, 09/20/2017 TECHNIQUE: Digital breast tomosynthesis is performed in both the craniocaudal and mediolateral oblique views along with computer-aided detection (CAD). Synthesized 2D images are generated from the tomosynthesis. FINDINGS: The breasts are heterogeneously dense, which may obscure small masses (ACR BI-RADS breast composition Category c). There is a fibronodular parenchymal pattern similar to prior studies. There is stable small oval nodular asymmetry posterior central 3:00 left breast similar to prior studies. There is no developing density. Scattered bilateral punctate round calcifications are again noted. The axilla and skin contours are unremarkable. No significant changes. MM/MM tomosynthesis screening BI IMPRESSION: No mammographic evidence of malignancy. ASSESSMENT: BI-RADS 2: Benign RECOMMENDATION: Routine annual mammography screening. This patient's information was entered into a reminder system with a target due date for their next mammogram.
== END 2021-11-19 13:19 | disposition home or self-care (01) ==
LOC: HO.MAMMO 13:18
PROVIDERS: PCP Internal Medicine; Visit Provider Internal Medicine
DX: Z12.31 Encounter for screening mammogram for malignant neoplasm of breast (principal)
CPT/HCPCS: 77063; 77067

== ENCOUNTER 2022-03-03 13:52 | Outpatient (REF) | payer OTHER, SELFPAY ==
[2022-03-08 06:37] LABS: HPV mRNA E6/E7 rflx Not Detected (Not Detected)
== END 2022-03-03 13:53 | disposition home or self-care (01) ==
LOC: HO.LNP 13:52
PROVIDERS: PCP Internal Medicine; Visit Provider Obstetrics & Gynecology
DX: Z01.419 Encounter for gynecological examination (general) (routine) without abnormal findings (principal); Z11.51 Encounter for screening for human papillomavirus (HPV); N84.1 Polyp of cervix uteri
CPT/HCPCS: 57500; 87624; 88142; 88305; 99212

== ENCOUNTER 2022-03-16 10:04 | Outpatient (REF) | payer OTHER, SELFPAY ==
[2022-03-16 10:23] LABS: MANUAL DIFF FLAG NO
[2022-03-16 11:02] LABS: Basophils Absolute Auto 0.1 X10*3/uL (0.0-0.2); Basophils Percent Auto 1.1 % (0-2); Eosinophils Absolute Auto 0.1 X10*3/uL (0.0-0.4); Eosinophils Percent Auto 1.8 % (0-4); Hematocrit 44.1 % (37.0-47.0); Hemoglobin 14.4 g/dl (12.0-16.0); Imm Gran Abs Auto 0.02 X10*3/uL (0.00-0.03); Imm Gran Pct Auto 0.3 % (0.0-0.4); Lymphocytes Percent Auto 31.8 % (20-40); Mean Corpuscular HGB Conc 32.7 g/dl (31.0-35.0); Mean Corpuscular Hemoglobin 29.1 pg (27.0-33.0); Mean Corpuscular Volume 89.1 fL (80.0-98.0); Mean Platelet Volume 11.1 fL (9.4-12.3); Monocytes Absolute Auto 0.3 X10*3/uL (0.1-1.2); Monocytes Percent Auto 5.4 % (2-11); Neutrophils Absolute Auto 3.7 x10*3/uL (2.0-8.3); Neutrophils Percent Auto 59.6 % (45-73); Platelet Count 219 X10*3/uL (160-400); Red Blood Count 4.95 X10*6/uL (4.20-5.50); Red Cell Distribution Width 12.5 % (11.0-16.0); White Blood Count 6.3 X10*3/uL (4.8-10.8)
[2022-03-16 12:18] LABS: Alanine Aminotransferase 10 U/L (0-31); Albumin Level 4.3 g/dL (3.5-5.0); Alkaline Phosphatase 103 U/L (39-117); Anion Gap 14 (12-20); Aspartate Amino Transferase 15 U/L (5-31); Bilirubin Total 0.8 mg/dL (0.0-1.0); Blood Urea Nitrogen 10 mg/dL (9-16); Calcium 9.1 mg/dL (8.4-10.2); Carbon Dioxide 27 mmol/L (22-29); Chloride 104 mmol/L (96-108); Cholesterol 206 mg/dL; Estimated Glomerular Filt Rate > 60; Glucose Random 100 mg/dL (60-115); HDL Cholesterol 48 mg/dL; LDL Cholesterol Calculated 139 mg/dl; Potassium 4.1 mmol/L (3.3-5.1); Sodium 141 mmol/L (135-145); Total Protein 7.1 g/dL (6.5-8.0); Triglycerides 96 mg/dL
[2022-03-16 12:32] LABS: Free T4 (Free Thyroxine) 0.67 ng/dL (0.71-1.85); Thyroid Stimulating Hormone 27.65 uIU/mL (0.32-4.0)
[2022-03-16 13:20] LABS: Vitamin D 25-OH Total 22.7 ng/mL (>30)
[2022-03-16 13:35] LABS: Folate 15.5 ng/mL (> or = 4.0); Vitamin B12 331 pg/mL (200-900)
== END 2022-03-16 10:05 | disposition home or self-care (01) ==
LOC: HO.LAB 10:04
PROVIDERS: PCP Internal Medicine; Visit Provider Internal Medicine
DX: I10 Essential (primary) hypertension (principal); E78.00 Pure hypercholesterolemia, unspecified
CPT/HCPCS: 36415; 80053; 80061; 82306; 82607; 82746; 84439; 84443; 85025

== ENCOUNTER 2022-03-19 20:22 | Emergency (ER) | payer OTHER, SELFPAY ==
--- NOTE | ~2022-03-19 | XR_ITS ---
EXAMINATION: XR SHOULDER, LEFT CLINICAL INFORMATION: Pain. COMPARISON: None TECHNIQUE: AP external rotation, Grashey, scapular Y, and axillary views of the left shoulder. FINDINGS: Lateral humeral acromioclavicular joint spacing and alignment are normal in appearance. No arthropathic changes or dystrophic calcifications visualized. The visualized left ribs and lung are normal in appearance. XR/XR shoulder LT min 2V IMPRESSION: Normal left shoulder.
[2022-03-19 21:06] VITALS: BP 200/108; PULSE 83; RESP 20; TEMP 36.6; O2SAT 98; BMI 33.3
== END 2022-03-20 01:40 | disposition left against medical advice (07) ==
PROVIDERS: Emergency Provider Emergency Medicine Emergency Medical Services; PCP Internal Medicine
DX: M54.2 Cervicalgia (principal); M25.512 Pain in left shoulder
CPT/HCPCS: 73030; 99282; 99283

== ENCOUNTER 2022-04-15 09:30 | Outpatient (RCR) | payer OTHER, SELFPAY ==
--- NOTE | 2022-03-04 14:02 | MHC.OT.EP ---
[address] [phone] Occupational Therapy Plan of Care Date of Evaluation: 03/04/22 Diagnosis: Right lateral epicondylitis Assessment: 57 yo right hand dominant female presents w/ c/o right lateral elbow, right dorsal forearm and right radial wrist pain, worsening over the past month. 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 On assessment, she locates pain and has tenderness over lateral epicondylitis, radial forearm at dorsal WAD and radial wrist over first dorsal compartment. She has decreased gross grasp strength and discomfort w/ ROM. We will continue therapy for management of lateral epicondylitis and de Quervain's tendinitis w/ goal of strengthening and pain reduction and overall awareness of joint protection and activity modification. Frequency and Duration: The patient will be seen 2x/wk for 4 weeks Short Term Goals: Ind w/ orthosis wear Ind w/ HEP Ind w/ joint protection and activity modification Half-Way Goals: Pt w/ gross grasp 40lb QuickDASH score <25 pts Pt to report ease w/ sleeping/modifications Pain free w/ light work and home tasks Treatment Plan: Therapeutic Exercise Therapeutic Activity Home Exercise Program Splinting Patient Education ADL Training Ultrasound Iontophoresis Paraffin Fluidotherapy MHP Cold Packs Soft Tissue Mobilization Kinesiotaping Thumb spica orthosis Electronically Signed By: Lo Dimas OTR/L Please Sign and return to therapist. Thank you once again for your referral.
--- NOTE | 2022-04-15 10:34 | MHC.OT.DC ---
[address] [phone] F: [phone] Occupational Therapy Discharge Note Provider: Dr Bills Diagnosis: Right lateral epicondylitis Date of Evaluation: 03/04/22 Date of Discharge: 04/15/22 Treatments to Date: 8 Discharge Status: Patient Elected to Stop Recommend MD Follow-up Discharge Summary: Kiesha was referred to OT w/ right elbow pain and right wrist pain. We have gone through course of therapy w/ various methods of treatment, but she continues to report no change in pain or improvements in function. She has been somewhat lax w/ wrist orthosis wear and follow through w/ joint protection recommendations, but she has ortho consult scheduled w/ [facility] next month. We will hold therapy services until further recommendations, but encourage her to continue joint protection, orthosis wear and HEP. Electronically Signed By: TIFFANY Carlton/George PICHARDO Reviewed/agree with student documentation: Therapist: Please Sign and return to therapist, thank you for your referral.
== END 2022-04-15 10:35 | disposition home or self-care (01) ==
LOC: HO.OT 09:30
PROVIDERS: PCP Internal Medicine; Visit Provider Internal Medicine
DX: M77.11 Lateral epicondylitis, right elbow (principal)
CPT/HCPCS: 29125; 97033; 97035; 97110; 97140; 97166

== ENCOUNTER 2022-05-02 09:03 | Outpatient (REF) | payer OTHER, SELFPAY ==
--- NOTE | ~2022-05-02 | XR_ITS ---
EXAMINATION: XR HAND, RIGHT CLINICAL INFORMATION: Pain in right hand COMPARISON: None TECHNIQUE: PA, lateral, and oblique views of the right hand. FINDINGS: The bones and soft tissues are normal. No fracture. Alignment is anatomic. Joint spaces are maintained. No erosions or soft tissue calcifications. XR/XR hand RT 2V IMPRESSION: Unremarkable right hand exam.
== END 2022-05-02 09:04 | disposition home or self-care (01) ==
LOC: HO.XRAY 09:03
PROVIDERS: PCP Internal Medicine; Visit Provider Internal Medicine
DX: M79.641 Pain in right hand (principal)
CPT/HCPCS: 73120

== ENCOUNTER → 2022-05-24 10:42 | Outpatient (BNVA) | payer OTHER, SELFPAY | PROVIDERS: PCP Internal Medicine; Visit Provider Physician Assistant | DX: Z12.11 Encounter for screening for malignant neoplasm of colon (principal) | CPT/HCPCS: 99202 ==

== ENCOUNTER 2022-05-25 12:45 | Outpatient (REF) | payer OTHER, SELFPAY ==
--- NOTE | ~2022-05-25 | US_ITS ---
CLINICAL INDICATION: Cervical polyp. TECHNIQUE: Real-time transabdominal pelvic ultrasound examination was performed. COMPARISON: Pelvic ultrasound examinations dating between June 11, 2014 and March 20, 2007. FINDINGS: The uterus measures 6.9 cm in length by 3.3 cm in AP dimension by 4.3 cm in transverse dimension. It appears unremarkable in echotexture. Previously described uterine fibroid not appreciated on the current study. The endometrial stripe measures 0.3 cm in thickness. No fluid is seen in the endometrial cavity. The right ovary could not be visualized by the technologist. The left ovary measures 3.1 x 1.8 x 1.3 cm. It appears unremarkable on color Doppler and pulse Doppler waveform analysis. No adnexal mass is seen. No fluid is identified in the cul-de-sac. US/US pelvic and transvaginal IMPRESSION: Right ovary not visualized. Otherwise unremarkable transabdominal and transvaginal pelvic ultrasound examinations.
== END 2022-05-25 12:46 | disposition home or self-care (01) ==
LOC: HO.HMGCX 12:45
PROVIDERS: PCP Internal Medicine; Visit Provider Obstetrics & Gynecology
DX: N84.1 Polyp of cervix uteri (principal)
CPT/HCPCS: 76830; 76856

== ENCOUNTER 2022-06-07 08:23 | Outpatient (REF) | payer OTHER, SELFPAY ==
--- NOTE | ~2022-06-07 | US_ITS ---
EXAMINATION: ULTRASOUND OF KIDNEYS WITH RENAL ARTERY DOPPLER CLINICAL INFORMATION: Hypertension. COMPARISON: CT abdomen/pelvis 05/23/2018. TECHNIQUE: Ultrasound of the kidneys was performed along with color flow Doppler imaging and velocity measurements in the proximal mid and distal renal arteries. Aortic velocities were measured and renal/aortic ratios were calculated. In addition, segmental resistive indices were measured. The renal veins were examined. FINDINGS: The kidneys appeared normal with the right kidney measuring 9.2 x 4.0 x 5.7 cm and the left kidney measuring 10.0 x 4.1 x 6.3 cm. No renal masses, renal stones or hydronephrosis is seen. Renal cortical thickness appears normal. Velocity measurements in the proximal mid and distal renal arteries on the right are normal however on the left, velocities are elevated proximally with a velocity of 179 cm/s. Velocity in the aorta is over 100 cm/s at 129 cm/s and therefore renal aortic ratios could not be calculated. Segmental resistive indices bilaterally were all normal. The renal veins were patent. US/US renal BI IMPRESSION: Elevated velocities in the left renal artery suggesting renal artery stenosis. CT angiography could be performed for further evaluation.
--- NOTE | ~2022-06-07 | US_ITS ---
EXAMINATION: ULTRASOUND OF KIDNEYS WITH RENAL ARTERY DOPPLER CLINICAL INFORMATION: Hypertension. COMPARISON: CT abdomen/pelvis 05/23/2018. TECHNIQUE: Ultrasound of the kidneys was performed along with color flow Doppler imaging and velocity measurements in the proximal mid and distal renal arteries. Aortic velocities were measured and renal/aortic ratios were calculated. In addition, segmental resistive indices were measured. The renal veins were examined. FINDINGS: The kidneys appeared normal with the right kidney measuring 9.2 x 4.0 x 5.7 cm and the left kidney measuring 10.0 x 4.1 x 6.3 cm. No renal masses, renal stones or hydronephrosis is seen. Renal cortical thickness appears normal. Velocity measurements in the proximal mid and distal renal arteries on the right are normal however on the left, velocities are elevated proximally with a velocity of 179 cm/s. Velocity in the aorta is over 100 cm/s at 129 cm/s and therefore renal aortic ratios could not be calculated. Segmental resistive indices bilaterally were all normal. The renal veins were patent. US/US renal doppler IMPRESSION: Elevated velocities in the left renal artery suggesting renal artery stenosis. CT angiography could be performed for further evaluation.
== END 2022-06-07 08:24 | disposition home or self-care (01) ==
LOC: HO.HMGCX 08:23
PROVIDERS: PCP Internal Medicine; Visit Provider Internal Medicine
DX: I10 Essential (primary) hypertension (principal)
CPT/HCPCS: 76775; 93975

== ENCOUNTER → 2022-06-08 10:40 | Outpatient (BNVA) | payer OTHER, SELFPAY | PROVIDERS: PCP Internal Medicine; Visit Provider Obstetrics & Gynecology | DX: N84.1 Polyp of cervix uteri (principal) | CPT/HCPCS: 99212 ==

== ENCOUNTER 2022-11-10 09:10 | Outpatient (REF) | payer OTHER, SELFPAY ==
[2022-11-10 10:51] LABS: Estimated Average Glucose 105 mg/dL; Hemoglobin A1c % 5.3 %
[2022-11-10 11:16] LABS: Alanine Aminotransferase 15 U/L (0-31); Albumin Level 4.1 g/dL (3.5-5.0); Alkaline Phosphatase 97 U/L (39-117); Anion Gap 10 (12-20); Aspartate Amino Transferase 17 U/L (5-31); Bilirubin Total 0.7 mg/dL (0.0-1.0); Blood Urea Nitrogen 12 mg/dL (9-16); Calcium 9.5 mg/dL (8.4-10.2); Carbon Dioxide 28 mmol/L (22-29); Chloride 103 mmol/L (96-108); Cholesterol 219 mg/dL; Estimated Glomerular Filt Rate > 60; Glucose Random 107 mg/dL (60-115); HDL Cholesterol 47 mg/dL; LDL Cholesterol Calculated 151 mg/dl; Potassium 4.4 mmol/L (3.3-5.1); Sodium 137 mmol/L (135-145); Total Protein 7.4 g/dL (6.5-8.0); Triglycerides 106 mg/dL
[2022-11-10 11:35] LABS: Free T4 (Free Thyroxine) 0.58 ng/dL (0.71-1.85); Thyroid Stimulating Hormone 18.85 uIU/mL (0.32-4.0)
== END 2022-11-10 09:11 | disposition home or self-care (01) ==
LOC: HO.LAB 09:10
PROVIDERS: PCP Internal Medicine; Visit Provider Internal Medicine
DX: R73.02 Impaired glucose tolerance (oral) (principal); E03.9 Hypothyroidism, unspecified; E78.00 Pure hypercholesterolemia, unspecified
CPT/HCPCS: 36415; 80053; 80061; 83036; 84439; 84443

== ENCOUNTER 2022-11-10 10:19 | Outpatient (AMB) | payer OTHER, SELFPAY ==
[2022-11-10 10:41] VITALS: BP 142/70; PULSE 64; O2SAT 98; BMI 34.7
--- NOTE | 2022-11-10 10:41 | A.OFFPC_ITS ---
Vital Signs 11/10/22 10:41 Height 4 ft 11 in Weight 172 lb BMI 34.7 BP 142/70 H Blood Pressure Location Lt brachial Position Sitting Pulse 64 Pulse Source Pulse Oximeter Pulse Oximetry (%) 98 Oxygen Delivery Method Room Air Intake Visit Reasons: PE Allergies mite-Dermatophagoides pteronyssinus [DUST MITE] Allergy (Unknown, Verified 11/10/22 10:44) RASH, SWELLING pollen extracts [POLLEN] Allergy (Unknown, Verified 11/10/22 10:44) RUNNY NOSE, ITCHY EYES Medication List - Last Reconciled 11/10/22 by Dakota Bills MD albuterol sulfate 90 mcg/actuation (ProAir HFA) 2 puffs inhalation QID PRN amlodipine 10 mg PO DAILY bisacodyl (Dulcolax (bisacodyl)) 10 mg (2 x 5 mg) PO ONCE 1 day blood pressure monitor As directed clotrimazole 1% topical fexofenadine ([place] Allergy) 180 mg PO DAILY hydrochlorothiazide 25 mg PO DAILY levothyroxine 125 mcg PO DAILY lisinopril 40 mg PO DAILY 30 days metoprolol succinate ER 50 mg PO DAILY polyethylene glycol 3350 (Miralax) 238 grams PO ONCE 1 day triamcinolone acetonide 0.5% 1 appl topical TID Tobacco use date assessed: 05/23/22 Dental Screening Dental Screen Date: 11/10/22 Did you have a dental visit in the last 12 months?: Yes Did you have a dental problem in the last 6 months where you did not have access to dental care?: No Was dental information given to patient?: Patient has dentist HPI PE HPI Details 57-year-old obese female with a history of hypercholesterolemia hypertension hypothyroidism impaired glucose tolerance last seen in in April 2022 had a physical done at that time blood work requested ultrasound of the kidneys requested as well as a nephrology referral patient has been started on metoprolol also. Patient is here for follow-up colonoscopy is up-to-date mammogram is due Ellie Panchal interpret patient the importance of getting the CT scan done as the patient had an ultrasound and there was a question of renal artery stenosis explaining her uncontrolled blood pressure problem patient is aware and will schedule that CT scan. 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 Declined physical therapy. Patient also needed some cream for her eczema on the left posterior auricular area as well as cream for the groin which is anti fungal cream. [facility] Medical History (Updated 11/10/22 @ 11:13 by Dakota Bills MD) Cervical cancer screening Contact dermatitis Hypercholesterolemia Hypertension Hypothyroid Lateral epicondylitis of right elbow Left fibular fracture Obesity (BMI 30-39.9) Right hand pain Screening for diabetes mellitus Vitamin D deficiency Well woman exam Surgical History H/O tubal ligation History of colonoscopy Family History (Updated 11/10/22 @ 10:45 by Emelia Gauthier CMA) Father Medical history unknown Mother Cancer Diabetes Paternal Grandmother Esophageal cancer Maternal Uncle Myocardial infarction CVD (cardiovascular disease) Maternal Grandmother CVD (cardiovascular disease) Maternal Aunt CVD (cardiovascular disease) CVA (cerebral vascular accident) Brother Leukemia Social History Housing: Apartment Alcohol intake: never Patient Tobacco Use Status: Former Tobacco user Tobacco use type: Cigarette Years Smoked: quit 13 years old e-Cigarette/Vaping Use: Never Used Second Hand Smoke Exposure: No service: No 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al status: employed 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 1. Little interest or pleasure in doing things: not at all 2. Feeling down, depressed, or hopeless: not at all 3. Trouble falling or staying asleep, or sleeping too much: not at all 4. Feeling tired or having little energy: not at all 5. Poor appetite or overeating: not at all 6. Feeling bad about yourself - or that you are a failure or have let yourself or your family down: not at all 7. Trouble concentrating on things, such as reading the newspaper or watching television: not at all 8. Moving or speaking so slowly that other people could have noticed. Or the opposite - being so fidgety or restless that you have been moving around a lot more than usual: not at all 9. Thoughts that you would be better off or of hurting yourself in some way: not at all Total score: 0 Depression Screening Interpretation: Negative Source: Developed by Drs. Suresh Mcwilliams, Kenny Guevara and colleagues, with an educational kevin from [employer]. Thrive Questionnaire Date Thrive assessed: 05/23/22 AUDIT C Alcohol Use Questionnaire (AUDIT-C) 1. How often do you have a drink containing alcohol?: Never 2. How many drinks containing alcohol do you have on a typical day when you are drinking?: 1 or 2 3. How often do you have six or more drinks on one occasion?: Never Total Score: 0 Score Reviewed/Action Taken: No CHRISTIANA-7 AMB Questionnaire CHRISTIANA-7 Date CHRISTIANA - 7 assessed: 05/23/22 Source: Developed by Drs. Suresh Mcwilliams, Kenny Guevara and colleagues, with an educational kevin from [employer]. Physical exam (Primary Care) Vital Signs: Last Vital Signs Pulse 64 11/10/22 10:41 BP 142/70 H 11/10/22 10:41 Pulse Ox 98 11/10/22 10:41 Oxygen Delivery Method Room Air 11/10/22 10:41 BMI result Body Mass Index 34.7 Tobacco/Smoking Status: Tobacco use Status Tobacco use date assessed 05/23/22 11/10/22 10:41 Patient Tobacco Use Status Former Tobacco user 11/10/22 10:41 Tobacco use type Cigarette 11/10/22 10:41 e-Cigarette/Vaping Use Never Used 11/10/22 10:41 PHQ-9: PHQ-9 Score PHQ-9: Total score 0 11/10/22 10:48 Depression Screening Interpretation: Negative Thrive Assessment: Date of Thrive Assessment Date Thrive assessed 05/23/22 11/10/22 10:41 Const General: alert; No acute distress Eyes Conjunctivae: conjunctivae normal Resp Auscultation: clear to auscultation bilaterally Cardio Rate: regular rate Rhythm: regular rhythm GI Inspection: Yes normal to inspection Extrem General: Yes normal to inspection and No edema Assessment and Plan Assessment & Plan (1) Hypertension: Code(s): I10 - Essential (primary) hypertension Qualifiers: Hypertension type: essential hypertension Qualified Code(s): I10 - Essential (primary) hypertension Plan: Continue with blood pressure medication. Decrease salt intake and exercise patient is taking amlodipine 10 mg once a day hydrochlorothiazide 25 mg once a day lisinopril 40 mg once a day and metoprolol 50 mg once a day. Concern about the blood pressure being elevated still ultrasound requested of renal organs question of renal artery stenosis and a CT scan was advised. Requested (2) Hypothyroid: Code(s): E03.9 - Hypothyroidism, unspecified Qualifiers: Hypothyroidism type: acquired Qualified Code(s): E03.9 - Hypothyroidism, unspecified Plan: Continue with the thyroid medication (3) Hypercholesterolemia: Code(s): E78.00 - Pure hypercholesterolemia, unspecified Plan: Avoid fried foods, chicken skin, eggs, butter margarine, pastries and meat. Be it pork or beef they have a lot of cholesterol LDL goal of less than 130 and triglyceride of less than 150 (4) Obesity (BMI 30-39.9): Comment: advised exercise and diet Code(s): E66.9 - Obesity, unspecified Plan: Diet and exercise (5) Impaired glucose tolerance: Code(s): R73.02 - Impaired glucose tolerance (oral) Plan: Decrease the amount of carbohydrate intake, pasta, bread, rice and potatoes are all sugar and that is aside from all the sweet stuff, remember that fruits are good but they are Sweet also. (6) Renal artery stenosis: Comment: May 2022Elevated velocities in the left renal artery suggesting renal artery stenosis. CT angiography could be performed for further evaluation. Code(s): I70.1 - Atherosclerosis of renal artery Plan: CT scan advised (7) Breast cancer screening by mammogram: Code(s): Z12.31 - Encounter for screening mammogram for malignant neoplasm of breast (8) Lateral epicondylitis of left elbow: Code(s): M77.12 - Lateral epicondylitis, left elbow (9) Lateral epicondylitis of right elbow: Code(s): M77.11 - Lateral epicondylitis, right elbow Orders: Referrals Orthopedics Referral M77.11 - Lateral epicondylitis, right elbow Medications: New clotrimazole 1% 1 appl topical BID 4 weeks 45 grams 0RF Refilled triamcinolone acetonide 0.5% 1 appl topical TID 45 grams 0RF L30.9 - Dermatitis, unspecified Coding Level of Care Code Est Pt Level 4 (07393) Diagnoses Hypertension I10 Hypertension type: essential hypertension Hypothyroid E03.9 Hypothyroidism type: acquired Hypercholesterolemia E78.00 Obesity (BMI 30-39.9) E66.9 Impaired glucose tolerance R73.02 Renal artery stenosis I70.1 Breast cancer screening by mammogram Z12.31 Lateral epicondylitis of left elbow M77.12 Lateral epicondylitis of right elbow M77.11 Additional Codes PHQ-9 - 72141 - PHQ-9 Billing: Y ([id number])
== END 2022-11-10 11:15 | disposition home or self-care (01) ==
PROVIDERS: Visit Provider Internal Medicine
DX: I10 Essential (primary) hypertension (principal); E03.9 Hypothyroidism, unspecified; Z68.34 Body mass index [BMI] 34.0-34.9, adult; I70.1 Atherosclerosis of renal artery; E78.00 Pure hypercholesterolemia, unspecified; E66.9 Obesity, unspecified; Z12.31 Encounter for screening mammogram for malignant neoplasm of breast; R73.02 Impaired glucose tolerance (oral); M77.12 Lateral epicondylitis, left elbow; M77.11 Lateral epicondylitis, right elbow
CPT/HCPCS: 99214

== ENCOUNTER 2022-11-15 13:24 | Outpatient (REF) | payer OTHER, SELFPAY ==
--- NOTE | ~2022-11-15 | CT_ITS ---
EXAMINATION: CT ANGIOGRAPHY ABDOMEN WITH CONTRAST CLINICAL INFORMATION: Atherosclerosis of the renal arteries COMPARISON: Renal ultrasound 06/07/2022 TECHNIQUE: Initial noncontrast localizing medical education specialist images were obtained. A timing bolus at the level of the celiac artery was calculated. Subsequently, arterial phase multidetector volumetric imaging was performed through the abdomen following the administration of 80 mL Omnipaque 350 intravenous contrast. No contrast reaction reported. Sagittal and coronal reformatted images were obtained on the technologist workstation. After extensive post-processing on a dedicated 3-D workstation, 3-D reformatted images were uploaded to PACS and reviewed as well. This CT examination was performed using dose optimization techniques as appropriate, variously including the following: *Automated exposure control *Adjustment of mA and/or kV according to patient size (this includes techniques or standardized protocols for targeted exams where dose is matched to indication/reason for exam; i.e. extremities or head) *Use of iterative reconstruction technique DLP: 180 mGy-cm FINDINGS: VASCULAR: No aortic aneurysm or dissection. No penetrating atheromatous ulcer. Minimal atherosclerotic disease of the proximal celiac artery, but patent. Mesenteric artery patent. Inferior mesenteric artery patent. Approximately 50% stenosis of bilateral proximal renal arteries. NONVASCULAR: Lung Bases: Mosaic attenuation at the bases. Liver: Homogeneous in attenuation. Normal in size. Gallbladder: Noninflamed. Biliary System: No intrahepatic or extrahepatic biliary dilation. Pancreas: Homogeneous in attenuation. Spleen: Normal in size. Genitourinary: Bilateral kidneys demonstrate symmetric enhancement. No perinephric fluid collection. No renal calculi. No hydroureteronephrosis. Adrenal Glands: Unremarkable. Gastrointestinal: The visualized alimentary tract is normal in course. No evidence of obstruction. Peritoneum: No pneumoperitoneum. No intra-abdominal fluid collection. Lymph Nodes: No pathologically enlarged abdominal lymph nodes. Soft Tissues/Musculoskeletal: There is no acute fracture or significant focal osseous lesion. CT/CT angio abdomen IMPRESSION: Approximately 50% stenosis of bilateral proximal renal arteries. Fleischner guidelines were followed.
[2022-11-15] MEDS: iohexoL 350 MG/ML 100 ML INFUS..BTL IV (14:51)
== END 2022-11-15 13:25 | disposition home or self-care (01) ==
LOC: HO.CT 13:24
PROVIDERS: PCP Internal Medicine; Visit Provider Internal Medicine
DX: I70.1 Atherosclerosis of renal artery (principal)
CPT/HCPCS: 74175; Q9967

== ENCOUNTER 2023-02-22 10:16 | Outpatient (AMB) | payer OTHER, SELFPAY ==
[2023-02-22 10:21] VITALS: BP 180/92; PULSE 74; O2SAT 98; BMI 35.3
--- NOTE | 2023-02-22 10:21 | MHC.PC.OV ---
Vital Signs 02/22/23 10:21 Height 4 ft 11 in Weight 175 lb BMI 35.3 BP 180/92 H Blood Pressure Location Lt brachial Position Sitting Pulse 74 Pulse Source Pulse Oximeter Pulse Oximetry (%) 98 Oxygen Delivery Method Room Air Intake Visit Reasons: Hypertension Allergies mite-Dermatophagoides pteronyssinus [DUST MITE] Allergy (Unknown, Verified 02/22/23 10:21) RASH, SWELLING pollen extracts [POLLEN] Allergy (Unknown, Verified 02/22/23 10:21) RUNNY NOSE, ITCHY EYES Tobacco use date assessed: 05/23/22 Dental Screening Dental Screen Date: 02/22/23 Did you have a dental visit in the last 12 months?: Yes Did you have a dental problem in the last 6 months where you did not have access to dental care?: No Was dental information given to patient?: Patient has dentist HPI Hypertension HPI Details 58-year-old obese female with hypertension hypothyroidism hypercholesterolemia impaired glucose tolerance and renal artery stenosis patient was advised to have a CT scan done. Colonoscopy is up-to-date, mammogram is due. CT scan result Octoberpproximately 50% stenosis of bilateral proximal renal arteries. will be seeing nephrology- called nephro and they will get in touch with patient Briseida [id number] [facility] Medical History (Updated 11/20/22 @ 22:30 by Dakota Bills MD) Right hand pain Well woman exam Lateral epicondylitis of right elbow Cervical cancer screening Screening for diabetes mellitus Contact dermatitis Vitamin D deficiency Obesity (BMI 30-39.9) Left fibular fracture Hypercholesterolemia Hypertension Hypothyroid Surgical History History of colonoscopy H/O tubal ligation Family History (Updated 11/10/22 @ 10:45 by Emelia Gauthier CMA) Father Medical history unknown Mother Cancer Diabetes Paternal Grandmother Esophageal cancer Maternal Uncle Myocardial infarction CVD (cardiovascular disease) Maternal Grandmother CVD (cardiovascular disease) Maternal Aunt CVD (cardiovascular disease) CVA (cerebral vascular accident) Brother Leukemia Social History Housing: Apartment Alcohol intake: never Patient Tobacco Use Status: Former Tobacco user Tobacco use type: Cigarette Years Smoked: quit 13 years old e-Cigarette/Vaping Use: Never Used Second Hand Smoke Exposure: No service: No 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al status: employed 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 1. Little interest or pleasure in doing things: not at all 2. Feeling down, depressed, or hopeless: not at all 3. Trouble falling or staying asleep, or sleeping too much: not at all 4. Feeling tired or having little energy: not at all 5. Poor appetite or overeating: not at all 6. Feeling bad about yourself - or that you are a failure or have let yourself or your family down: not at all 7. Trouble concentrating on things, such as reading the newspaper or watching television: not at all 8. Moving or speaking so slowly that other people could have noticed. Or the opposite - being so fidgety or restless that you have been moving around a lot more than usual: not at all 9. Thoughts that you would be better off or of hurting yourself in some way: not at all Total score: 0 Depression Screening Interpretation: Negative Depression Screening Done: Yes Source: Developed by Drs. Suresh Mcwilliams, Lexy Mao, Kenny ePrea and colleagues, with an educational kevin from [employer]. Thrive Questionnaire Date Thrive assessed: 05/23/22 AUDIT C Alcohol Use Questionnaire (AUDIT-C) 1. How often do you have a drink containing alcohol?: Never 2. How many drinks containing alcohol do you have on a typical day when you are drinking?: 1 or 2 3. How often do you have six or more drinks on one occasion?: Never Total Score: 0 Score Reviewed/Action Taken: No CHRISTIANA-7 AMB Questionnaire CHRISTIANA-7 Date CHRISTIANA - 7 assessed: 05/23/22 Source: Developed by Drs. Suresh Mcwilliams, Kenny Guevara and colleagues, with an educational kevin from [employer]. Physical exam (Primary Care) Vital Signs: Last Vital Signs Pulse 74 02/22/23 10:21 BP 180/92 H 02/22/23 10:21 Pulse Ox 98 02/22/23 10:21 Oxygen Delivery Method Room Air 02/22/23 10:21 BMI result Body Mass Index 35.3 Tobacco/Smoking Status: Tobacco use Status Tobacco use date assessed 05/23/22 02/22/23 10:22 Patient Tobacco Use Status Former Tobacco user 02/22/23 10:22 Tobacco use type Cigarette 02/22/23 10:22 e-Cigarette/Vaping Use Never Used 02/22/23 10:22 PHQ-9: PHQ-9 Score PHQ-9: Total score 0 02/22/23 10:39 Depression Screening Interpretation: Negative Thrive Assessment: Date of Thrive Assessment Date Thrive assessed 05/23/22 02/22/23 10:22 Const General: alert; No acute distress Eyes Conjunctivae: conjunctivae normal Resp Auscultation: clear to auscultation bilaterally Cardio Rate: regular rate Rhythm: regular rhythm GI Inspection: Yes normal to inspection Extrem General: Yes normal to inspection and No edema Office Meds tuberculin PPD 5 tub. unit/0.1 mL intradermal injection solution Performing Provider: Dakota Bills MD Performing Location: [facility] Administered by: Rosa Rico RN on 02/22/23 11:08 Dose Route Admin Location Dispensed Lot Number Expiration Date NDC Educational Speech Language Clinician 0.1 mL intradermal left forearm 0.1 mL [id number] 02/21/26 77850-363-24 [employer] Assessment and Plan Assessment & Plan (1) Renal artery stenosis: Comment: May 2022Elevated velocities in the left renal artery suggesting renal artery stenosis. CT angiography could be performed for further evaluation. CT angio pproximately 50% stenosis of bilateral proximal renal arteries. Code(s): I70.1 - Atherosclerosis of renal artery Plan: Patient is advised to follow-up with Nephrology (2) Obesity (BMI 30-39.9): Comment: advised exercise and diet Code(s): E66.9 - Obesity, unspecified Plan: Diet and exercise (3) Hypertension: Code(s): I10 - Essential (primary) hypertension Qualifiers: Hypertension type: essential hypertension Qualified Code(s): I10 - Essential (primary) hypertension Plan: Continue with blood pressure medication. Decrease salt intake and exercise presently on amlodipine 10 mg once a day hydrochlorothiazide 25 mg once a day lisinopril 40 mg once a day and metoprolol 50 mg once a day (4) Hypercholesterolemia: Code(s): E78.00 - Pure hypercholesterolemia, unspecified Plan: Avoid fried foods, chicken skin, eggs, butter margarine, pastries and meat. Be it pork or beef they have a lot of cholesterol LDL goal of less than 130 and triglyceride of less than 150 (5) Hypothyroid: Code(s): E03.9 - Hypothyroidism, unspecified Qualifiers: Hypothyroidism type: acquired Qualified Code(s): E03.9 - Hypothyroidism, unspecified Plan: Continue with thyroid medication (6) Breast cancer screening by mammogram: Code(s): Z12.31 - Encounter for screening mammogram for malignant neoplasm of breast Orders: Orders AMB PPD Planted Today Z11.1 - Encounter for screening for respiratory tuberculosis MM tomosynthesis screening BI Today Z12.31 - Encounter for screening mammogram for malignant neoplasm of breast Coding Level of Care Code Est Pt Level 4 (88182) Diagnoses Renal artery stenosis I70.1 Obesity (BMI 30-39.9) E66.9 Essential hypertension I10 Hypertension type: essential hypertension Hypercholesterolemia E78.00 Acquired hypothyroidism E03.9 Hypothyroidism type: acquired Breast cancer screening by mammogram Z12.31 Additional Codes PHQ-9 - 07855 - PHQ-9 Billing: ([id number])
== END 2023-02-22 12:57 | disposition home or self-care (01) ==
PROVIDERS: PCP Internal Medicine; Visit Provider Internal Medicine
DX: I70.1 Atherosclerosis of renal artery (principal); I10 Essential (primary) hypertension; E78.00 Pure hypercholesterolemia, unspecified; E03.9 Hypothyroidism, unspecified; Z11.1 Encounter for screening for respiratory tuberculosis
CPT/HCPCS: 86580; 99214

== ENCOUNTER 2023-03-09 15:37 | Outpatient (AMB) | payer OTHER, SELFPAY ==
[2023-03-09 15:48] VITALS: BP 150/80; PULSE 73; O2SAT 98; BMI 35.7
--- NOTE | 2023-03-09 15:48 | HO.NEPHOV ---
HPI HPI Comments History of Present Illness Details 58-year-old woman with a history of resistant hypertension has been referred for further evaluation. She is currently on 4 medications. Blood pressure still suboptimal. She underwent renal ultrasonogram 6 months ago which was suggestive of in large doses. This was followed by a CTA which showed 50% bilateral renal artery stenosis back in October of 2022. [facility] Medical History (Updated 11/20/22 @ 22:30 by Dakota Bills MD) Right hand pain Well woman exam Lateral epicondylitis of right elbow Cervical cancer screening Screening for diabetes mellitus Contact dermatitis Vitamin D deficiency Obesity (BMI 30-39.9) Left fibular fracture Hypercholesterolemia Hypertension Hypothyroid Surgical History History of colonoscopy H/O tubal ligation Family History Father Medical history unknown Mother Cancer Diabetes Paternal Grandmother Esophageal cancer Maternal Uncle Myocardial infarction CVD (cardiovascular disease) Maternal Grandmother CVD (cardiovascular disease) Maternal Aunt CVD (cardiovascular disease) CVA (cerebral vascular accident) Brother Leukemia Social History Housing: Apartment Alcohol intake: never Patient Tobacco Use Status: Former Tobacco user Tobacco use type: Cigarette Years Smoked: quit 13 years old e-Cigarette/Vaping Use: Never Used Second Hand Smoke Exposure: No service: No 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al status: employed 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 Cognitive needs: No Hearing needs: No Vision needs: No Female Reproductive History Menstrual Age of Menarche: 10 Vital Signs 03/09/23 15:48 Height 4 ft 11 in Weight 177 lb BMI 35.7 BP 150/80 H Pulse 73 Pulse Source Pulse Oximeter Pulse Oximetry (%) 98 Physical Exam Vital Signs: Last Vital Signs Pulse 73 03/09/23 15:48 BP 150/80 H 03/09/23 15:48 Pulse Ox 98 03/09/23 15:48 BMI result Body Mass Index 35.7 Const General: comfortable; No acute distress Orientation/consciousness: patient oriented x3 Eyes General: appearance normal, both eyes and all related structures Visual Acosta: normal visual acosta by confrontation Neck Neck: Yes supple and Yes no JVD Resp Effort & Inspection: normal respiratory effort and respiratory effort not decreased Auscultation: rhonchi Cardio Palpation: no palpable S3 and no palpable S4 Heart sounds: no rubs GI Inspection: Yes normal to inspection Palpation (GI): Soft to palpation Percussion: Yes normal to percussion Auscultation: normal bowel sounds General: Yes no CVA tenderness Back/Spine/Pelvis Back: no CVA tenderness Skin General skin exam: no petechiae and no purpura Neuro General: patient oriented x3 and no focal motor deficits Extrem General: No clubbing and No edema Results Reviewed Results Reviewed: Labs was reviewed serum creatinine 0.84 CTA revealed bilateral renal artery stenosis of about 50% Assessment & Plan Assessment & Plan (1) Hypertension: Code(s): I10 - Essential (primary) hypertension Qualifiers: Hypertension type: essential hypertension Qualified Code(s): I10 - Essential (primary) hypertension Plan: Resistant hypertension in a middle-aged woman who. Based on imaging study she probably has renal artery stenosis. The CTA showed more than 50% stenosis bilaterally. Given the fact that she is on 4 antihypertensive medications blood pressure still suboptimal I believe be the SHANNON can be hemodynamically significant. I had a lengthy discussion with her regarding the renal angiogram with angioplasty. We discussed the pros and cons. She wants to think about this. I will give her couple of weeks and I will see her again to discuss this further. If she agrees then I will set up for an angiogram with angioplasty with intervention Radiology. This was explained with the help of ampoule inspector service. Today have not been any changes to medications Encouraged her to stay on low-sodium diet. Continue with current medications. Coding Level of Care Code New Pt Level 4 (66659) Diagnoses Essential hypertension I10 Hypertension type: essential hypertension
== END 2023-03-09 16:20 | disposition home or self-care (01) ==
PROVIDERS: PCP Internal Medicine; Visit Provider Internal Medicine Hypertension Specialist
DX: I10 Essential (primary) hypertension (principal)
CPT/HCPCS: 99204

== ENCOUNTER → 2023-03-09 15:37 | Outpatient (BNVA) | payer OTHER, SELFPAY | PROVIDERS: PCP Internal Medicine; Visit Provider Internal Medicine Hypertension Specialist | DX: I10 Essential (primary) hypertension (principal) | CPT/HCPCS: 99202 ==

== ENCOUNTER 2023-03-29 15:38 | Outpatient (REF) | payer OTHER, SELFPAY | END 2023-03-29 15:39 | disposition home or self-care (01) | LOC: HO.MAMMO 15:38 | PROVIDERS: PCP Internal Medicine; Visit Provider Internal Medicine | DX: Z12.31 Encounter for screening mammogram for malignant neoplasm of breast (principal) | CPT/HCPCS: 77063; 77067 ==

== ENCOUNTER → 2023-03-29 15:45 | Outpatient (BNV) | payer OTHER, SELFPAY | PROVIDERS: PCP Internal Medicine; Visit Provider Radiology Diagnostic Radiology | DX: Z12.31 Encounter for screening mammogram for malignant neoplasm of breast (principal) | CPT/HCPCS: 77063; 77067 ==

== ENCOUNTER 2023-03-30 15:41 | Outpatient (AMB) | payer OTHER, SELFPAY ==
[2023-03-30 15:43] VITALS: BP 152/90; PULSE 80; O2SAT 98; BMI 35.1
--- NOTE | 2023-03-30 15:43 | HO.NEPHOV ---
HPI HPI Comments History of Present Illness Details 58-year-old woman with a history of resistant hypertension has been referred for further evaluation. She is currently on 4 medications. Blood pressure still suboptimal. She underwent renal ultrasonogram 6 months ago which was suggestive of SHANNON This was followed by a CTA which showed 50% bilateral renal artery stenosis back in October of 2022. [facility]LY [facility] Medical History Right hand pain Well woman exam Lateral epicondylitis of right elbow Cervical cancer screening Screening for diabetes mellitus Contact dermatitis Vitamin D deficiency Obesity (BMI 30-39.9) Left fibular fracture Hypercholesterolemia Hypertension Hypothyroid Surgical History History of colonoscopy H/O tubal ligation Family History Father Medical history unknown Mother Cancer Diabetes Paternal Grandmother Esophageal cancer Maternal Uncle Myocardial infarction CVD (cardiovascular disease) Maternal Grandmother CVD (cardiovascular disease) Maternal Aunt CVD (cardiovascular disease) CVA (cerebral vascular accident) Brother Leukemia Social History Housing: Apartment Alcohol intake: never Patient Tobacco Use Status: Former Tobacco user Tobacco use type: Cigarette Years Smoked: quit 13 years old e-Cigarette/Vaping Use: Never Used Second Hand Smoke Exposure: No service: No 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al status: employed 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 Cognitive needs: No Hearing needs: No Vision needs: No Female Reproductive History Menstrual Age of Menarche: 10 Vital Signs 03/30/23 15:43 Height 4 ft 11 in Weight 174 lb BMI 35.1 BP 152/90 H Blood Pressure Location Rt brachial Position Sitting Pulse 80 Pulse Source Pulse Oximeter Pulse Oximetry (%) 98 Oxygen Delivery Method Room Air Physical Exam Vital Signs: Last Vital Signs Pulse 80 03/30/23 15:43 BP 152/90 H 03/30/23 15:43 Pulse Ox 98 03/30/23 15:43 Oxygen Delivery Method Room Air 03/30/23 15:43 BMI result Body Mass Index 35.1 Const General: comfortable; No acute distress Orientation/consciousness: patient oriented x3 Eyes General: appearance normal, both eyes and all related structures Visual Ghosh: normal visual ghosh by confrontation Neck Neck: Yes supple and Yes no JVD Resp Effort & Inspection: normal respiratory effort and respiratory effort not decreased Auscultation: rhonchi Cardio Palpation: no palpable S3 and no palpable S4 Heart sounds: no rubs GI Inspection: Yes normal to inspection Palpation (GI): Soft to palpation Percussion: Yes normal to percussion Auscultation: normal bowel sounds General: Yes no CVA tenderness Back/Spine/Pelvis Back: no CVA tenderness Skin General skin exam: no petechiae and no purpura Neuro General: patient oriented x3 and no focal motor deficits Extrem General: No clubbing and No edema Assessment & Plan Assessment & Plan (1) Renal artery stenosis: Comment: May 2022Elevated velocities in the left renal artery suggesting renal artery stenosis. CT angiography could be performed for further evaluation. CT angio pproximately 50% stenosis of bilateral proximal renal arteries. Code(s): I70.1 - Atherosclerosis of renal artery (2) Hypertension: Code(s): I10 - Essential (primary) hypertension Qualifiers: Hypertension type: essential hypertension Qualified Code(s): I10 - Essential (primary) hypertension Plan Resistant hypertension in a middle-aged woman Based on imaging study she probably has renal artery stenosis. The CTA showed more than 50% stenosis bilaterally. Given the fact that she is on 4 antihypertensive medications blood pressure still suboptimal I believe the SHANNON is hemodynamically significant. I had a lengthy discussion with her regarding the renal angiogram with angioplasty. We discussed the pros and cons. she agrees I will set up for an angiogram with angioplasty with intervention Radiology. This was explained with the help of field secretary service. Today have not been any changes to medications Encouraged her to stay on low-sodium diet. Continue with current medications. Orders: Orders IR angio renal BI Today I70.1 - Atherosclerosis of renal artery Coding Level of Care Code Est Pt Level 3 (50751) Diagnoses Renal artery stenosis I70.1 Essential hypertension I10 Hypertension type: essential hypertension Results Reviewed Nephrology Results: Sodium 137 mmol/L (135-145) 11/10/22 Potassium 4.4 mmol/L (3.3-5.1) 11/10/22 Chloride 103 mmol/L (96-108) 11/10/22 Carbon Dioxide 28 mmol/L (22-29) 11/10/22 BUN 12 mg/dL (9-16) 11/10/22 Creatinine 0.84 mg/dL (0.5-1.4) 11/10/22 Calcium 9.5 mg/dL (8.4-10.2) 11/10/22 Renal US 06/07/22
== END 2023-03-30 16:11 | disposition home or self-care (01) ==
PROVIDERS: PCP Internal Medicine; Visit Provider Internal Medicine Hypertension Specialist
DX: I70.1 Atherosclerosis of renal artery (principal); I10 Essential (primary) hypertension
CPT/HCPCS: 99213

== ENCOUNTER → 2023-03-30 15:41 | Outpatient (BNVA) | payer OTHER, SELFPAY | PROVIDERS: PCP Internal Medicine; Visit Provider Internal Medicine Hypertension Specialist | DX: I70.1 Atherosclerosis of renal artery (principal); I10 Essential (primary) hypertension | CPT/HCPCS: 99212 ==

== ENCOUNTER 2023-05-04 15:30 | Outpatient (AMB) | payer OTHER, SELFPAY ==
--- NOTE | 2023-05-04 15:35 | MHC.OFFVIS ---
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 Intake Note: Frequency urination Rough And Truing Machine Operator Required: Yes Rough And Truing Machine Operator Language: Cyber Workforce Developer And Manager Name: Tiff WELCH Information Interpreted: non-clinical & clinical Hollow Tile Partition Erector: Hollow Tile Partition Erector Present (Tiff WELCH) Accompanied by: Self / Same As Patient Allergies mite-Dermatophagoides pteronyssinus [DUST MITE] Allergy (Unknown, Verified 05/04/23 15:51) RASH, SWELLING pollen extracts [POLLEN] Allergy (Unknown, Verified 05/04/23 15:51) RUNNY NOSE, ITCHY EYES Post menopausal: Yes HPI HPI Comments History of Present Illness Details Presenting for annual exam. No complaints. Last Pap/HPV was negative in 03/15 Last Mammogram was BI-RADS 1 in 04/15 Last screening Colonoscopy was in 04/07, the recommendation was to repeat in 10 years [facility] Medical History Right hand pain Well woman exam Lateral epicondylitis of right elbow Cervical cancer screening Screening for diabetes mellitus Contact dermatitis Vitamin D deficiency Obesity (BMI 30-39.9) Left fibular fracture Hypercholesterolemia Hypertension Hypothyroid Surgical History History of colonoscopy H/O tubal ligation Family History Father Medical history unknown Mother Cancer Diabetes Paternal Grandmother Esophageal cancer Maternal Uncle Myocardial infarction CVD (cardiovascular disease) Maternal Grandmother CVD (cardiovascular disease) Maternal Aunt CVD (cardiovascular disease) CVA (cerebral vascular accident) Brother Leukemia Social History Housing: Apartment Alcohol intake: never Patient Tobacco Use Status: Former Tobacco user Tobacco use type: Cigarette Years Smoked: quit 13 years old e-Cigarette/Vaping Use: Never Used Second Hand Smoke Exposure: No service: No 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al status: employed 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 Cognitive needs: No Hearing needs: No Vision needs: No Female Reproductive History Menstrual Age of Menarche: 10 Menopause type: natural Date of last pap smear: 03/04/22 Date of Mammogram: 03/29/23 Review of Systems Const All systems reviewed & are unremarkable except as noted in HPI and below Card Reports as per HPI Resp Reports as per HPI GI Reports as per HPI and Reports no additional complaints Reports as per HPI Physical Exam Vital Signs: Last Vital Signs BP 200/100 H 05/04/23 15:50 BMI result Body Mass Index 34.7 Const General: cooperative, healthy appearing and comfortable Chest Chest palpation & inspection: normal inspection of the chest and normal palpation of entire chest wall Breast/axilla inspection: normal inspection of the breasts and normal inspection of the axillae Breast/axilla palpation: normal palpation of the breasts, normal palpation of the axillae and no axillary lymphadenopathy Resp Effort & Inspection: normal respiratory effort Auscultation: clear to auscultation bilaterally Percussion: percussion normal Cardio Palpation: normal PMI Rate: regular rate Rhythm: regular rhythm Heart sounds: no murmurs and no rubs Peripheral pulses: Peripheral pulses 2+ throughout GI Inspection: Yes normal to inspection Palpation (GI): Soft to palpation, nontender, no guarding, not rigid and No hepatosplenomegaly present Percussion: Yes normal to percussion Auscultation: normal bowel sounds Rectal Exam - Female: deferred General: Yes bladder normal to palpation External Female Exam: No lesion Speculum Exam - Vagina: normal appearance of the vagina, normal palpation, normal vaginal discharge and not erythematous Speculum Exam - Cervix: normal appearance of the cervix and normal palpation Bimanual exam- vagina & uterus: normal bimanual exam, normal palpation, uterine size normal, bladder normal to palpation, consistency normal and normal palpation Bimanual Exam- Adnexa, other: normal adnexae, no masses and no tenderness Assessment & Plan Assessment & Plan (1) Well woman exam: Code(s): Z01.419 - Encounter for gynecological examination (general) (routine) without abnormal findings Plan: Co testing not indicated this year. Counseled the patient about the recommended dietary allowance of 1200 mg of Calcium & 600 IU of vitamin D. Instructions given the patient to schedule next screen Mammogram in 04/16. The patient was instructed to perform monthly self-breast exams and schedule annual exam in a year. All questions answered and the patient verbalized understanding. (2) Hypertension: Code(s): I10 - Essential (primary) hypertension Qualifiers: Hypertension type: essential hypertension Qualified Code(s): I10 - Essential (primary) hypertension Plan: Discussed with the patient the blood pressure of 200/100 the repeated after 50 minutes down to 180-198, recommended the patient to go to emergency room joycelyn. All questions answered, the patient verbalized understanding especially the urgency of her clinical situation. Coding Level of Care Code Est Pt Prev Care 40-64y(30954) Diagnoses Well woman exam Z01.419 Essential hypertension I10 Hypertension type: essential hypertension
[2023-05-04 15:50] VITALS: BP 200/100; BMI 34.7
[2023-05-04 16:09] VITALS: BP 180/98
== END 2023-05-04 16:13 | disposition home or self-care (01) ==
LOC: HO.HWS 15:30
PROVIDERS: PCP Internal Medicine; Visit Provider Obstetrics & Gynecology
DX: Z01.419 Encounter for gynecological examination (general) (routine) without abnormal findings (principal); I10 Essential (primary) hypertension
CPT/HCPCS: 99396

== ENCOUNTER → 2023-05-04 15:30 | Outpatient (BNVA) | payer OTHER, SELFPAY | PROVIDERS: PCP Internal Medicine; Visit Provider Obstetrics & Gynecology | DX: Z01.419 Encounter for gynecological examination (general) (routine) without abnormal findings (principal); I10 Essential (primary) hypertension | CPT/HCPCS: 99396 ==

== ENCOUNTER 2023-05-19 17:51 | Emergency (ER) | payer OTHER, SELFPAY ==
[2023-05-19 17:56] VITALS: BP 197/99; PULSE 71; RESP 16; TEMP 37; O2SAT 97; BMI 33.3
--- NOTE | 2023-05-19 18:03 | ED_ITS ---
HPI - Female Genitourinary General Chief complaint: Urogenital-Female Stated complaint: fever x3 days, back pain, freq urination, sob Time Seen by Provider: 05/19/23 19:09 Source: patient Mode of arrival: ambulatory Limitations: no limitations History of Present Illness HPI Narrative: patient comes to the emergency room complaining of a warm sensation when urinating. Patient states it does not hurt where she feels a bit bloated. Patient complaining of bilateral back pain. Related Data Home Medications Medication Instructions Recorded Confirmed amlodipine 10 mg tablet 10 mg PO DAILY 02/04/20 11/10/22 Previous Rx's Medication Instructions Recorded albuterol sulfate 90 mcg/actuation 2 puff inhalation QID PRN 04/09/21 aerosol inhaler (ProAir HFA) shortness of breath or wheezing #8.5 grams blood pressure monitor #1 ea 04/09/21 lisinopril 40 mg tablet 40 mg PO DAILY 30 days #90 tabs 09/16/21 fexofenadine 180 mg tablet 180 mg PO DAILY #30 tabs 02/11/22 ([place] Allergy) bisacodyl 5 mg tablet,delayed 10 mg (2 x 5 mg) PO ONCE 05/24/22 release (Dulcolax (bisacodyl)) colonoscopy prep 1 day #2 tabs polyethylene glycol 3350 17 238 g PO ONCE 1 day #238 grams 05/24/22 gram/dose oral powder (Miralax) hydrochlorothiazide 25 mg tablet 25 mg PO DAILY #90 tabs 09/13/22 clotrimazole 1 % topical cream 1 appl topical BID 4 weeks #45 11/10/22 grams levothyroxine 150 mcg tablet 150 mcg PO DAILY #30 tabs 11/10/22 triamcinolone acetonide 0.5 % 1 appl topical TID #45 grams 11/10/22 topical cream metoprolol succinate 50 mg 50 mg PO DAILY #30 tabs 12/29/22 tablet,extended release 24 hr cyclobenzaprine 5 mg tablet 5 mg PO TID PRN muscle spasm #7 05/19/23 tabs ibuprofen 600 mg tablet 600 mg PO TID PRN fever or pain 05/19/23 #14 tabs phenazopyridine 100 mg tablet 100 mg PO TID 6 doses #6 tabs 05/19/23 Allergies Allergy/AdvReac Type Severity Reaction Status Date / Time mite-Dermatophagoides Allergy Unknown RASH, Verified 05/04/23 15:51 pteronyssinus SWELLING [DUST MITE] pollen extracts [POLLEN] Allergy Unknown RUNNY Verified 05/04/23 15:51 NOSE, ITCHY EYES Review of Systems 2 Review of Systems: Constitutional : No Weight loss, No Fever, No Chills, No Night Sweats, No Fatigue, No Malaise ENT/Mouth : No Hearing loss, No Ear Pain, No Nasal Congestion, No Sinus Pain, No Hoarseness, No sore throat, No Rhinorrhea, No Swallowing Difficulty Eyes: No Eye Pain, No Swelling, No Redness, No Foreign Body, No Discharge, No Vision Changes Cardiovascular : No Chest Pain, No SOB, No Dyspnea on Exertion, No Orthopnea, No Edema, No Palpitations Respiratory : No Cough, No Sputum, No Wheezing, No Smoke Exposure, No Dyspnea Gastrointestinal : No Nausea, No Vomiting, No Diarrhea, No Constipation, No abdominal Pain, No Hematochezia, No Melena Genitourinary : no irregular bleeding, complaining of Dysuria, No Urinary Frequency, No Hematuria, No Urinary Incontinence, No Urgency, No Flank Pain, No Urinary Flow Changes, No Hesitancy Musculoskeletal : No joint pain, No Myalgias, No Joint Swelling Skin : No Skin Lesions, No rash Neuro : No Weakness, No Numbness, No Paresthesias, No Loss of Consciousness, No Dizziness, No Headache Psych : No Anxiety/Panic, No Depression, No SI/HI/AH/VH, No Social Issues, Heme/Lymph: No Bruising, No Bleeding,No Lymphadenopathy Endocrine : No Polyuria, No Polydipsia, No Temperature Intolerance [facility] Past Medical History Medical History Right hand pain Well woman exam Lateral epicondylitis of right elbow Cervical cancer screening Screening for diabetes mellitus Contact dermatitis Vitamin D deficiency Obesity (BMI 30-39.9) Left fibular fracture Hypercholesterolemia Hypertension Hypothyroid Surgical History History of colonoscopy H/O tubal ligation Family History Family History Father Medical history unknown Mother Cancer Diabetes Paternal Grandmother Esophageal cancer Maternal Uncle Myocardial infarction CVD (cardiovascular disease) Maternal Grandmother CVD (cardiovascular disease) Maternal Aunt CVD (cardiovascular disease) CVA (cerebral vascular accident) Brother Leukemia Social History Social History Housing: Apartment Alcohol intake: never Patient Tobacco Use Status: Former Tobacco user Tobacco use type: Cigarette Years Smoked: quit 13 years old e-Cigarette/Vaping Use: Never Used Second Hand Smoke Exposure: No Advance Directives: No Advance Directives Information Provided: No service: No 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al status: employed 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 Oriented X3. No acute distress. well-appearing Eyes: Pupils equal, round and reactive to light. ENT: Pharynx normal. Neck: Normal inspection. Neck supple. No lymph nodes noted. No crepitus CVS: Normal heart rate and rhythm. Pulses normal. Normal S1 and S2 Respiratory: No respiratory distress. Breath sounds normal. No Wheezing. No rales Abdomen: Soft and nontender. No rigidity. No distention. Skin: Skin warm and dry. Normal skin color. Normal skin turgor. Extremities: No lower extremity edema. No Lacerations. No Rash Neuro: Oriented X 3. No motor deficit. No sensory deficit. Moving all extremities. No slurred speech. CN 2 through 12 grossly intact Psych: calm, cooperative, normal affect Course Course Course Narrative: This is an RME: Additional HPI, ROS, PE not included below will be deferred to primary provider. Patient is a 58-year-old female who presents emergency department for evaluation of dysuria, urinary frequency, left low back/ flank pain x3 days Medical Decision Making Medical Decision Making MDM Narrative: - my interpretation of labs: Normal hematology and chemistry, urinalysis negative - patient has no flank pain, only lower back pain close to the hips. Likely musculoskeletal pain. Differential Diagnosis Differential Diagnoses: The differential diagnosis associated with the presentation includes ( UTI, pyelonephritis, musculoskeletal pain) Lab Data MDM Lab Attestation statement: I reviewed the patient's lab results. 05/19/23 18:14 05/19/23 18:14 Labs: Lab Results 05/19/23 05/19/23 Range/Units 18:03 18:14 WBC 10.3 (4.8-10.8) X10*3/uL RBC 4.71 (4.20-5.50) X10*6/uL Hgb 13.7 (12.0-16.0) g/dl Hct 41.9 (37.0-47.0) % MCV 89.0 (80.0-98.0) fL MCH 29.1 (27.0-33.0) pg MCHC 32.7 (31.0-35.0) g/dl RDW 13.1 (11.0-16.0) % Plt Count 215 (160-400) X10*3/uL MPV 10.9 (9.4-12.3) fL Immature Gran % (Auto) 0.2 (0.0-0.4) % Neut % (Auto) 58.6 (45-73) % Lymph % (Auto) 32.0 (20-40) % Charles % (Auto) 7.0 (2-11) % Eos % (Auto) 1.4 (0-4) % Baso % (Auto) 0.8 (0-2) % Lymph # (Auto) 3.3 (1.2-4.9) X10*3/uL Charles # (Auto) 0.7 (0.1-1.2) X10*3/uL Eos # (Auto) 0.1 (0.0-0.4) X10*3/uL Baso # (Auto) 0.1 (0.0-0.2) X10*3/uL Abs Immat Gran (auto) 0.02 (0.00-0.03) X10*3/uL Absolute Neuts (auto) 6.0 (2.0-8.3) x10*3/uL Absolute Nucleated RBC 0.000 (0.0-0.012) X10*3/uL Nucleated RBC % (auto) 0.0 (0.0-0.2) /100WBC Sodium 140 (135-145) mmol/L Potassium 4.1 (3.3-5.1) mmol/L Chloride 105 (96-108) mmol/L Carbon Dioxide 25 (22-29) mmol/L Anion Gap 14 (12-20) BUN 17 H (9-16) mg/dL Creatinine 1.03 (0.5-1.4) mg/dL Estim Creat Clear Calc 51.9 Estimated GFR 55 Random Glucose 92 (60-115) mg/dL Calcium 9.3 (8.4-10.2) mg/dL Total Bilirubin 0.5 (0.0-1.0) mg/dL AST 19 (5-31) U/L ALT 15 (0-31) U/L Alkaline Phosphatase 93 (39-117) U/L Total Protein 7.6 (6.5-8.0) g/dL Albumin 4.2 (3.5-5.0) g/dL Urine Color Yellow Urine Appearance Clear Urine pH 6.0 (5.0-9.0) Ur Specific [place] 1.015 (1.005-1.025) Urine Protein Negative (Neg-Trace) mg/dL Urine Glucose (UA) Negative (Negative) mg/dL Urine Ketones Negative (Negative) mg/dL Urine Blood Negative (Negative) Urine Nitrite Negative (Negative) Ur Leukocyte Esterase Negative (Negative) Discharge Plan Discharge Clinical Impression: Dysuria Patient Disposition: Home, Self-Care Instructions: Dysuria (ED) Additional Instructions: Please follow-up with your primary care physician tomorrow. If you have any worsening or new symptoms, please return to the emergency room or call 911 Prescriptions: New phenazopyridine 100 mg tablet 100 mg PO TID Qty: 6 0RF ibuprofen 600 mg tablet 600 mg PO TID PRN (Reason: fever or pain) Qty: 14 0RF cyclobenzaprine 5 mg tablet 5 mg PO TID PRN (Reason: muscle spasm) Qty: 7 0RF No Action lisinopril 40 mg tablet 40 mg PO DAILY 30 Days Qty: 90 2RF hydrochlorothiazide 25 mg tablet 25 mg PO DAILY Qty: 90 3RF levothyroxine 150 mcg tablet 150 mcg PO DAILY Qty: 30 3RF metoprolol succinate 50 mg tablet extended release 24 hr 50 mg PO DAILY Qty: 30 3RF amlodipine 10 mg tablet 10 mg PO DAILY albuterol sulfate [ProAir HFA] 90 mcg/actuation HFA aerosol inhaler 2 puff inhalation QID PRN (Reason: shortness of breath or wheezing) Qty: 8.5 0RF (DME) blood pressure monitor Kit See Rx Instructions .ROUTE .MEDSUPPLY Qty: 1 0RF Rx Instructions: As directed fexofenadine [[place] Allergy] 180 mg tablet 180 mg PO DAILY Qty: 30 4RF triamcinolone acetonide 0.5 % cream 1 appl topical TID Qty: 45 0RF clotrimazole 1 % cream 1 appl topical BID 28 Days Qty: 45 0RF bisacodyl [Dulcolax (bisacodyl)] 5 mg tablet,delayed release (DR/EC) 10 mg PO ONCE 1 Days Qty: 2 0RF Rx Instructions: Take 2 tablets by mouth at 12:00pm the day before your procedure. polyethylene glycol 3350 [Miralax] 17 gram/dose powder 238 g PO ONCE 1 Days Qty: 238 0RF Rx Instructions: Take as directed by mouth the day before your procedure.
[2023-05-19 18:10] LABS: Appearance Urine Clear; Color Urine Yellow; Glucose Urine UA Negative (Negative); Leukocyte Esterase Urine Negative (Negative); Nitrite Urine Negative (Negative); Specific Gravity - Urine 1.015 (1.005-1.025); Urine Blood Negative (Negative); Urine Ketones Negative (Negative); Urine Protein Negative (Neg-Trace)
[2023-05-19 18:19] LABS: MANUAL DIFF FLAG NO
[2023-05-19 18:20] LABS: Basophils Absolute Auto 0.1 X10*3/uL (0.0-0.2); Basophils Percent Auto 0.8 % (0-2); Eosinophils Absolute Auto 0.1 X10*3/uL (0.0-0.4); Eosinophils Percent Auto 1.4 % (0-4); Hematocrit 41.9 % (37.0-47.0); Hemoglobin 13.7 g/dl (12.0-16.0); Imm Gran Abs Auto 0.02 X10*3/uL (0.00-0.03); Imm Gran Pct Auto 0.2 % (0.0-0.4); Lymphocytes Absolute Auto 3.3 X10*3/uL (1.2-4.9); Mean Corpuscular HGB Conc 32.7 g/dl (31.0-35.0); Mean Corpuscular Hemoglobin 29.1 pg (27.0-33.0); Mean Platelet Volume 10.9 fL (9.4-12.3); Monocytes Absolute Auto 0.7 X10*3/uL (0.1-1.2); Neutrophils Percent Auto 58.6 % (45-73); Platelet Count 215 X10*3/uL (160-400); Red Blood Count 4.71 X10*6/uL (4.20-5.50); Red Cell Distribution Width 13.1 % (11.0-16.0); White Blood Count 10.3 X10*3/uL (4.8-10.8)
[2023-05-19 18:35] LABS: Alanine Aminotransferase 15 U/L (0-31); Albumin Level 4.2 g/dL (3.5-5.0); Alkaline Phosphatase 93 U/L (39-117); Anion Gap 14 (12-20); Aspartate Amino Transferase 19 U/L (5-31); Bilirubin Total 0.5 mg/dL (0.0-1.0); Blood Urea Nitrogen 17 mg/dL (9-16); Calcium 9.3 mg/dL (8.4-10.2); Carbon Dioxide 25 mmol/L (22-29); Chloride 105 mmol/L (96-108); Creatinine Clr Calc Pharmacy 51.9; Estimated Glomerular Filt Rate 55; Glucose Random 92 mg/dL (60-115); Potassium 4.1 mmol/L (3.3-5.1); Sodium 140 mmol/L (135-145); Total Protein 7.6 g/dL (6.5-8.0)
== END 2023-05-19 19:54 | disposition home or self-care (01) ==
PROVIDERS: Nurse Practitioner Family; Emergency Provider Emergency Medicine; PCP Internal Medicine
DX: R30.0 Dysuria (principal); R50.9 Fever, unspecified; E78.00 Pure hypercholesterolemia, unspecified; I10 Essential (primary) hypertension; Z79.899 Other long term (current) drug therapy
CPT/HCPCS: 36415; 80053; 81003; 85025; 99282; 99283

== ENCOUNTER 2023-07-17 18:33 | Emergency (ER) | payer OTHER, SELFPAY ==
[2023-07-17 19:24] VITALS: BP 198/93; PULSE 78; RESP 16; TEMP 37.2; O2SAT 96; BMI 34.7
--- NOTE | 2023-07-17 19:25 | ED_ITS ---
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 Patient states that over the last day she has had right upper dental pain. Patient states that she attempted to make a dentist appointment but she was told she no longer has a dentist. Patient denies any dizziness, lightheadedness, abdominal pain, nausea, vomiting, fever, chills, blurry vision, double vision, loss of vision, chest pain, difficulty breathing, shortness of breath, back pain, night sweats, pain with urination, increased urinary frequency, increased urinary urgency, blood in her urine or stool, syncope or a near syncopal episode, recent trauma or falls, bowel incontinence, bladder incontinence, bowel retention, bladder retention, or any other complaints at this time. Onset (ago): day(s) (1) Location: mouth and right Severity: mild Relieving factors: none Exacerbating factors: none Associated symptoms: denies other symptoms Treatments prior to arrival: none Related Data Home Medications Medication Instructions Recorded Confirmed amlodipine 10 mg tablet 10 mg PO DAILY 02/04/20 11/10/22 Previous Rx's Medication Instructions Recorded albuterol sulfate 90 mcg/actuation 2 puff inhalation QID PRN 04/09/21 aerosol inhaler (ProAir HFA) shortness of breath or wheezing #8.5 grams blood pressure monitor #1 ea 04/09/21 lisinopril 40 mg tablet 40 mg PO DAILY 30 days #90 tabs 09/16/21 fexofenadine 180 mg tablet 180 mg PO DAILY #30 tabs 02/11/22 ([facility] Allergy) bisacodyl 5 mg tablet,delayed 10 mg (2 x 5 mg) PO ONCE 05/24/22 release (Dulcolax (bisacodyl)) colonoscopy prep 1 day #2 tabs polyethylene glycol 3350 17 238 g PO ONCE 1 day #238 grams 05/24/22 gram/dose oral powder (Miralax) hydrochlorothiazide 25 mg tablet 25 mg PO DAILY #90 tabs 09/13/22 clotrimazole 1 % topical cream 1 appl topical BID 4 weeks #45 11/10/22 grams levothyroxine 150 mcg tablet 150 mcg PO DAILY #30 tabs 11/10/22 triamcinolone acetonide 0.5 % 1 appl topical TID #45 grams 11/10/22 topical cream metoprolol succinate 50 mg 50 mg PO DAILY #30 tabs 12/29/22 tablet,extended release 24 hr cyclobenzaprine 5 mg tablet 5 mg PO TID PRN muscle spasm #7 05/19/23 tabs ibuprofen 600 mg tablet 600 mg PO TID PRN fever or pain 05/19/23 #14 tabs phenazopyridine 100 mg tablet 100 mg PO TID 6 doses #6 tabs 05/19/23 penicillin V potassium 500 mg 500 mg PO BID 10 days #20 tabs 07/17/23 tablet Allergies Allergy/AdvReac Type Severity Reaction Status Date / Time mite-Dermatophagoides Allergy Unknown RASH, Verified 07/17/23 19:24 pteronyssinus SWELLING [DUST MITE] pollen extracts [POLLEN] Allergy Unknown RUNNY Verified 07/17/23 19:24 NOSE, ITCHY EYES Review of Systems 2 Constitutional: Constitutional: Reports no additional constitutional complaints, Denies chills, Denies fever(s) and Denies night sweats Eyes: Eyes: Reports no additional eye complaints, Denies blurry vision, Denies change in vision, Denies diplopia, Denies eye discharge, Denies loss of vision and Denies eye pain ENT: Denies dizziness Comments: right front tooth pain Cardiovascular: Cardiovascular: Reports no additional cardiovascular complaints, Denies chest pain, Denies lightheadedness, Denies Loss of Consciousness and Denies dyspnea Respiratory: Respiratory: Reports no additional respiratory complaints and Denies dyspnea Gastrointestinal: Gastrointestinal: Reports no additional gastrointestinal complaints, Denies abdominal pain, Denies melena, Denies hematochezia, Denies change in bowel habits and Denies change in stool character Genitourinary: Genitourinary: Denies hematuria, Denies urinary frequency, Denies dysuria, Denies urinary incontinence, Denies urinary hesitancy and Denies urinary urgency Musculoskeletal: Musculoskeletal: Reports no additional musculoskeletal complaints, Denies numbness and Denies tingling Neurologic: Denies dizziness, Denies loss of vision, Denies numbness and Denies tingling Psychiatric: Psychiatric: Reports no additional psychiatric complaints Endocrine: Endocrine: Reports no additional endocrine complaints Hematologic/Lymphatic: Hematologic/Lymphatic: Reports no additional hematologic/lymphatic complaints Allergic/Immunologic: Allergic/Immunologic: Reports no additional allergic/immunologic complaints [facility] Past Medical History Attestation statement: The following information was validated with the patient. Source: old records reviewed and nursing notes reviewed Medical History Right hand pain Well woman exam Lateral epicondylitis of right elbow Cervical cancer screening Screening for diabetes mellitus Contact dermatitis Vitamin D deficiency Obesity (BMI 30-39.9) Left fibular fracture Hypercholesterolemia Hypertension Hypothyroid Surgical History History of colonoscopy H/O tubal ligation Family History Family History Father Medical history unknown Mother Cancer Diabetes Paternal Grandmother Esophageal cancer Maternal Uncle Myocardial infarction CVD (cardiovascular disease) Maternal Grandmother CVD (cardiovascular disease) Maternal Aunt CVD (cardiovascular disease) CVA (cerebral vascular accident) Brother Leukemia Social History Social History Housing: Apartment Alcohol intake: never Patient Tobacco Use Status: Former Tobacco user Tobacco use type: Cigarette Years Smoked: quit 13 years old e-Cigarette/Vaping Use: Never Used Second Hand Smoke Exposure: No Advance Directives: No Advance Directives Information Provided: No service: No 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al status: employed 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 Cognitive needs: No Hearing needs: No Vision needs: No Physical Exam ED Vital Signs: Vital Signs - 24 hr 07/17/23 19:24 07/17/23 19:33 Temperature 98.9 F 98.9 F Pulse Rate 78 78 Respiratory Rate 16 16 Blood Pressure 198/93 H 193/93 H Pulse Oximetry 96 96 Oxygen Delivery Method Room Air Room Air BMI result Body Mass Index 34.7 Const General: cooperative, no acute distress, alert and awake Nutritional Appearance: well nourished Orientation/consciousness: patient oriented x3 Limitations: no limitations HENMT Head: Yes normal to inspection and Yes atraumatic Ears: hearing grossly normal bilaterally and external ears normal General nose exam: Normal external nose present, no nasal discharge noted and no epistaxis Face and sinus: Yes normal facial exam, No abrasion and No laceration Mouth: Normal oral and palatal mucosa present, no drooling and no muffled voice Teeth image: 2 1. minimal erythema and swelling. Pain to palpation. No fluctuance. Eyes General: appearance normal, both eyes and all related structures Periorbital: periorbital findings normal Eyelids: Yes eyelids normal Conjunctivae: conjunctivae normal Pupils: Equal, round and reactive pupils present EOM: EOMs intact bilaterally Neck Neck: Yes normal visual inspection, Yes full ROM and Yes no lymphadenopathy Chest Chest palpation & inspection: normal inspection of the chest Resp Effort & Inspection: normal respiratory effort and able to speak in complete sentences GI Inspection: Yes normal to inspection Neuro General: patient oriented x3 and moves all extremities Cranial nerves: Yes Equal, round and reactive pupils present Cognition (Neuro): normal cognition Motor exam (neuro): 5/5 motor strength present throughout Sensory Exam: Normal double simultaneous stimulation for sensation Coordination: [id number] test normal Extrem General: Yes normal to inspection, Yes full ROM and Yes capillary refill normal Psych Appearance: grossly normal Mental Status: mental status grossly normal Affect: normal affect Attitude: cooperative Thought process: Normal thought process present Thought content: Normal thought content present Insight: Good insight present (Psych) Medical Decision Making Medical Decision Making MDM Narrative: Patient is a 58 year old assigned female at with a history of HTN presenting to the emergency department today with dental pain. Patient's physical exam was as noted in the physical exam portion of this note. I explained my physical exam findings to the patient. I answered all questions asked by the patient. I stressed the importance of the patient taking her medication as prescribed. I stressed the importance of the patient following up with her primary care provider. I stressed the importance of the patient returning to the emergency department immediately if her symptoms were to worsen or if she were to develop any dizziness, shortness of breath, difficulty breathing, chest pain, blurry vision, loss of vision, nausea, vomiting, abdominal pain, fever, chills, back pain, or any other complaints. Patient verbalized agreement and understanding with this treatment plan and discharge. Differential Diagnosis Differential Diagnoses: The differential diagnosis associated with the presentation includes Dental abscess Dental pain Admission/Observation Consideration of admission/observation: Escalation of care including admission/observation considered Patient would have been admitted to the hospital had her work up had any findings where hospital admission was appropriate and her clinical presentation warranted hospital admission. Prescription Management I considered prescription management with: Antibiotic (patient prescribed an antibiotic for dental abscess) Discharge Plan Discharge Clinical Impression: Abscess, dental Patient Disposition: Home, Self-Care Instructions: Dental Abscess (ED) Additional Instructions: Follow up with your primary care provider and a dentist. Return to the emergency department immediately if your symptoms worsen or if you develop any dizziness, shortness of breath, difficulty breathing, chest pain, blurry vision, loss of vision, nausea, vomiting, abdominal pain, fever, chills, back pain, or any other complaints. Call or visit any of the clinics below to establish with a dentist: [facility] [address] [place] [address] [facility] [address] [facility], [address] [address] [facility] [address] [place] [address] [facility] [address] [place] [address] [place] [address] [place] [address] Prescriptions: New penicillin V potassium 500 mg tablet 500 mg PO BID 10 Days Qty: 20 0RF No Action lisinopril 40 mg tablet 40 mg PO DAILY 30 Days Qty: 90 2RF hydrochlorothiazide 25 mg tablet 25 mg PO DAILY Qty: 90 3RF levothyroxine 150 mcg tablet 150 mcg PO DAILY Qty: 30 3RF metoprolol succinate 50 mg tablet extended release 24 hr 50 mg PO DAILY Qty: 30 3RF phenazopyridine 100 mg tablet 100 mg PO TID Qty: 6 0RF ibuprofen 600 mg tablet 600 mg PO TID PRN (Reason: fever or pain) Qty: 14 0RF cyclobenzaprine 5 mg tablet 5 mg PO TID PRN (Reason: muscle spasm) Qty: 7 0RF amlodipine 10 mg tablet 10 mg PO DAILY albuterol sulfate [ProAir HFA] 90 mcg/actuation HFA aerosol inhaler 2 puff inhalation QID PRN (Reason: shortness of breath or wheezing) Qty: 8.5 0RF (DME) blood pressure monitor Kit See Rx Instructions .ROUTE .MEDSUPPLY Qty: 1 0RF Rx Instructions: As directed fexofenadine [[facility] Allergy] 180 mg tablet 180 mg PO DAILY Qty: 30 4RF triamcinolone acetonide 0.5 % cream 1 appl topical TID Qty: 45 0RF clotrimazole 1 % cream 1 appl topical BID 28 Days Qty: 45 0RF bisacodyl [Dulcolax (bisacodyl)] 5 mg tablet,delayed release (DR/EC) 10 mg PO ONCE 1 Days Qty: 2 0RF Rx Instructions: Take 2 tablets by mouth at 12:00pm the day before your procedure. polyethylene glycol 3350 [Miralax] 17 gram/dose powder 238 g PO ONCE 1 Days Qty: 238 0RF Rx Instructions: Take as directed by mouth the day before your procedure. Referrals: Dakota Bills MD [Primary Care Provider] - Interventions: ED Discharge Assessment Last Done: 07/17/23 19:33 Discharge Date/Time: 07/17/23 19:34 Print Language: Australian
[2023-07-17 19:33] VITALS: BP 193/93; PULSE 78; RESP 16; TEMP 37.2; O2SAT 96
== END 2023-07-17 19:34 | disposition home or self-care (01) ==
PROVIDERS: Emergency Provider Emergency Medicine Emergency Medical Services; PCP Internal Medicine
DX: K04.7 Periapical abscess without sinus (principal); I10 Essential (primary) hypertension
CPT/HCPCS: 99282; 99283

== ENCOUNTER 2023-10-25 11:14 | Outpatient (AMB) | payer OTHER, SELFPAY ==
--- NOTE | 2023-10-25 11:20 | A.OFFPC_ITS ---
Vital Signs 10/25/23 11:21 Height 4 ft 11 in Weight 172 lb BMI 34.7 BP 172/98 H Blood Pressure Location Lt brachial Position Sitting Pulse 79 Pulse Source Pulse Oximeter Pulse Oximetry (%) 98 Oxygen Delivery Method Room Air Intake Visit Reasons: RA stenosis, HTN Allergies mite-Dermatophagoides pteronyssinus [DUST MITE] Allergy (Unknown, Verified 10/25/23 11:21) RASH, SWELLING pollen extracts [POLLEN] Allergy (Unknown, Verified 10/25/23 11:21) RUNNY NOSE, ITCHY EYES Tobacco use date assessed: 10/25/23 Dental Screening Dental Screen Date: 10/25/23 Did you have a dental visit in the last 12 months?: Yes Did you have a dental problem in the last 6 months where you did not have access to dental care?: No Was dental information given to patient?: Patient has dentist HPI RA stenosis, HTN HPI Details 58-year-old obese female with a history of renal artery stenosis hypertension hypercholesterolemia hypothyroidism last seen in 03/13/2023. Patient is colonoscopy last done in March 2015. Mammogram is up-to-date 04/12/2023. Review of the notes was in the ER for dental abscess. And had dysuria with no infection. Patient did see the Nephrology in April was advised angio. interpretGeorgianakarin [id number] PAtient declined the procedure [facility] Medical History Right hand pain Well woman exam Lateral epicondylitis of right elbow Cervical cancer screening Screening for diabetes mellitus Contact dermatitis Vitamin D deficiency Obesity (BMI 30-39.9) Left fibular fracture Hypercholesterolemia Hypertension Hypothyroid Surgical History History of colonoscopy H/O tubal ligation Family History Father Medical history unknown Mother Cancer Diabetes Paternal Grandmother Esophageal cancer Maternal Uncle Myocardial infarction CVD (cardiovascular disease) Maternal Grandmother CVD (cardiovascular disease) Maternal Aunt CVD (cardiovascular disease) CVA (cerebral vascular accident) Brother Leukemia Social History Housing: Apartment Alcohol intake: never Patient Tobacco Use Status: Former Tobacco user Tobacco use type: Cigarette Years Smoked: quit 13 years old e-Cigarette/Vaping Use: Never Used Second Hand Smoke Exposure: No service: No 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al status: employed 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 1. Little interest or pleasure in doing things: not at all 2. Feeling down, depressed, or hopeless: not at all 3. Trouble falling or staying asleep, or sleeping too much: not at all 4. Feeling tired or having little energy: not at all 5. Poor appetite or overeating: not at all 6. Feeling bad about yourself - or that you are a failure or have let yourself or your family down: not at all 7. Trouble concentrating on things, such as reading the newspaper or watching television: not at all 8. Moving or speaking so slowly that other people could have noticed. Or the opposite - being so fidgety or restless that you have been moving around a lot more than usual: not at all 9. Thoughts that you would be better off or of hurting yourself in some way: not at all Total score: 0 Depression Screening Interpretation: Negative Depression Screening Done: Yes Source: Developed by Drs. Suresh Mcwilliams, Lexy Mao, Kenny Perea and colleagues, with an educational kevin from [employer] Thrive Questionnaire Date Thrive assessed: 10/25/23 I am a: Patient What is your living situation today?: I have a steady place to live Within the past 12 months, did the food you bought not last and you didn't have the money to get more?: Never true Within the past 12 months, did you worry whether your food would run out before you got money to buy more?: Never true Do you have trouble paying for medicines?: No Do you have trouble getting transportation to medical appointments?: No Do you have trouble paying your heating and electricity bill?: No Do you have trouble taking care of your child, family member or friend?: No Do you have trouble with day-to-day activities such as bathing, preparing meals, shopping, managing finances, etc.?: No Are you currently unemployed and looking for a job?: No Are you interested in more education?: No Currently or been in a relationship where the following occur: No concerns reported THRIVE Score: 0 AUDIT C Alcohol Use Questionnaire (AUDIT-C) 1. How often do you have a drink containing alcohol?: Never 2. How many drinks containing alcohol do you have on a typical day when you are drinking?: 1 or 2 3. How often do you have six or more drinks on one occasion?: Never Total Score: 0 Score Reviewed/Action Taken: No CHRISTIANA-7 AMB Questionnaire CHRISTIANA-7 Date CHRISTIANA - 7 assessed: 10/25/23 Feeling nervous, anxious, or on edge: 0 = Not at all Not being able to stop or control worryin = Not at all Worrying too much about different things: 0 = Not at all Trouble relaxin = Not at all Being so restless that it is hard to sit still: 0 = Not at all Becoming easily annoyed or irritable: 0 = Not at all Feeling afraid as if something awful might happen: 0 = Not at all Total CHRISTIANA-7 score (0-4 normal; 5-9 mild; 10-14 moderate; 15-21 severe): 0 Source: Developed by Drs. Suresh Mcwilliams, Lexy Mao, Kenny Perea and colleagues, with an educational kevin from [employer]). Physical exam (Primary Care) Vital Signs: Last Vital Signs Pulse 79 10/25/23 11:21 BP 172/98 H 10/25/23 11:21 Pulse Ox 98 10/25/23 11:21 Oxygen Delivery Method Room Air 10/25/23 11:21 BMI result Body Mass Index 34.7 Tobacco/Smoking Status: Tobacco use Status Tobacco use date assessed 10/25/23 10/25/23 11:23 Patient Tobacco Use Status Former Tobacco user 10/25/23 11:23 Tobacco use type Cigarette 10/25/23 11:23 e-Cigarette/Vaping Use Never Used 10/25/23 11:23 PHQ-9: PHQ-9 Score PHQ-9: Total score 0 10/25/23 11:23 Depression Screening Interpretation: Negative Thrive Assessment: Date of Thrive Assessment Date Thrive assessed 10/25/23 10/25/23 11:23 Currently or been in a relationship where the following occur: No concerns reported Const General: alert; No acute distress Eyes Conjunctivae: conjunctivae normal Resp Auscultation: clear to auscultation bilaterally Cardio Rate: regular rate Rhythm: regular rhythm GI Inspection: Yes normal to inspection Extrem General: Yes normal to inspection and No edema Assessment and Plan Assessment & Plan (1) Renal artery stenosis: Comment: May 2022Elevated velocities in the left renal artery suggesting renal artery stenosis. CT angiography could be performed for further evaluation. CT angio pproximately 50% stenosis of bilateral proximal renal arteries. Code(s): I70.1 - Atherosclerosis of renal artery Plan: Patient has seen Nephrology and was advised angioplasty but I do not see any procedures. LONG Discussion with the patient the concern on this problem with BP and the kidney problem (2) Obesity (BMI 30-39.9): Comment: advised exercise and diet Code(s): E66.9 - Obesity, unspecified Plan: diet and exercise (3) Hypertension: Code(s): I10 - Essential (primary) hypertension Qualifiers: Hypertension type: essential hypertension Qualified Code(s): I10 - Essential (primary) hypertension Plan: Patient is being followed up by Nephrology has for blood pressure medications amlodipine 10 mg once a day hydrochlorothiazide 25 mg once a day lisinopril 40 mg once a day and metoprolol 50 mg once a day. Problem of renal artery stenosis and has been advised angioplasty. PAltient is declining procedure and will be referred to nephology for other options (4) Hypercholesterolemia: Code(s): E78.00 - Pure hypercholesterolemia, unspecified Plan: Avoid fried foods, chicken skin, eggs, butter margarine, pastries and meat. Be it pork or beef they have a lot of cholesterol LDL goal of less than 130 and triglyceride of less than 150 (5) Hypothyroid: Code(s): E03.9 - Hypothyroidism, unspecified Qualifiers: Hypothyroidism type: acquired Qualified Code(s): E03.9 - Hypothyroidism, unspecified Plan: Patient was advised to have retested for thyroid. Orders: Orders Complete Blood Count Auto Diff Today E03.9 - Hypothyroidism, unspecified Comprehensive Met. Panel Today E03.9 - Hypothyroidism, unspecified Lipid Panel Today E03.9 - Hypothyroidism, unspecified, E78.00 - Pure hypercholesterolemia, unspecified Vitamin B12 and Folate Today E03.9 - Hypothyroidism, unspecified Vitamin D 25-OH Total Today E03.9 - Hypothyroidism, unspecified Free T4 (Free Thyroxine) Today E03.9 - Hypothyroidism, unspecified Thyroid Stimulating Hormone Today E03.9 - Hypothyroidism, unspecified UA w Microscopic Today E03.9 - Hypothyroidism, unspecified Referrals Nephrology Referral I70.1 - Atherosclerosis of renal artery Coding Level of Care Code Est Pt Level 4 (33664) Complex EM visit Add On G2211 Diagnoses Renal artery stenosis I70.1 Obesity (BMI 30-39.9) E66.9 Essential hypertension I10 Hypertension type: essential hypertension Hypercholesterolemia E78.00 Acquired hypothyroidism E03.9 Hypothyroidism type: acquired Additional Codes PHQ-9 - 84594 - PHQ-9 Billing: ([id number])
[2023-10-25 11:21] VITALS: BP 172/98; PULSE 79; O2SAT 98; BMI 34.7
== END 2023-10-25 12:15 | disposition home or self-care (01) ==
PROVIDERS: PCP Internal Medicine; Visit Provider Internal Medicine
DX: I70.1 Atherosclerosis of renal artery (principal); E66.9 Obesity, unspecified; Z68.34 Body mass index [BMI] 34.0-34.9, adult; I10 Essential (primary) hypertension; E78.00 Pure hypercholesterolemia, unspecified; E03.9 Hypothyroidism, unspecified
CPT/HCPCS: 99214; G2211

== ENCOUNTER 2023-10-30 15:32 | Outpatient (AMB) | payer OTHER, SELFPAY ==
[2023-10-30 15:37] VITALS: BP 180/94; PULSE 92; O2SAT 98; BMI 35.4
--- NOTE | 2023-10-30 15:37 | HO.NEPHOV ---
Vital Signs 10/30/23 15:37 Height 4 ft 11 in Weight 175 lb 8 oz BMI 35.4 BP 180/94 H Blood Pressure Location Rt brachial Position Sitting Pulse 92 Pulse Source Pulse Oximeter Pulse Oximetry (%) 98 Oxygen Delivery Method Room Air Intake Visit Reasons: Atherosclerosis of renal artery Marketing Operations Coordinator Required: Yes Marketing Operations Coordinator Services: Marketing Operations Coordinator Present Marketing Operations Coordinator Name: Brenda Kingsley [id number] Accompanied by: Self / Same As Patient Allergies mite-Dermatophagoides pteronyssinus [DUST MITE] Allergy (Unknown, Verified 10/30/23 15:40) RASH, SWELLING pollen extracts [POLLEN] Allergy (Unknown, Verified 10/30/23 15:40) RUNNY NOSE, ITCHY EYES Medication List - Last Reconciled 11/01/23 by Juanito Kwong MD albuterol sulfate 90 mcg/actuation (ProAir HFA) 2 puffs inhalation QID PRN amlodipine 10 mg PO DAILY blood pressure monitor As directed clotrimazole 1% 1 appl topical BID 4 weeks cyclobenzaprine 5 mg PO TID PRN hydrochlorothiazide 25 mg PO DAILY levothyroxine 150 mcg PO DAILY lisinopril 40 mg PO DAILY 30 days metoprolol succinate ER 50 mg PO DAILY spironolacton-hydrochlorothiaz 25-25 mg 1 tab PO DAILY triamcinolone acetonide 0.5% 1 appl topical TID HPI Comments Details: 58-year-old woman with a history of resistant hypertension has been referred for further evaluation. She is currently on 4 medications. Blood pressure still suboptimal. She underwent renal ultrasonogram 6 months ago which was suggestive of SHANNON This was followed by a CTA which showed 50% bilateral renal artery stenosis back in October of 2022. 10/30/2023. Elbow was scheduled for a renal angiogram. However she canceled the procedure. She does not want to undergo the procedure. She is currently on 4 antihypertensive medications blood pressure uncontrolled. [facility] Medical History Right hand pain Well woman exam Lateral epicondylitis of right elbow Cervical cancer screening Screening for diabetes mellitus Contact dermatitis Vitamin D deficiency Obesity (BMI 30-39.9) Left fibular fracture Hypercholesterolemia Hypertension Hypothyroid Surgical History History of colonoscopy H/O tubal ligation Family History Father Medical history unknown Mother Cancer Diabetes Paternal Grandmother Esophageal cancer Maternal Uncle Myocardial infarction CVD (cardiovascular disease) Maternal Grandmother CVD (cardiovascular disease) Maternal Aunt CVD (cardiovascular disease) CVA (cerebral vascular accident) Brother Leukemia Social History Housing: Apartment Alcohol intake: never Patient Tobacco Use Status: Former Tobacco user Tobacco use type: Cigarette Years Smoked: quit 13 years old e-Cigarette/Vaping Use: Never Used Second Hand Smoke Exposure: No service: No 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al status: employed 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: [employer]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 Cognitive needs: No Hearing needs: No Vision needs: No Female Reproductive History Menstrual Age of Menarche: 10 Physical Exam Vital Signs: Last Vital Signs Pulse 92 10/30/23 15:37 BP 180/94 H 10/30/23 15:37 Pulse Ox 98 10/30/23 15:37 Oxygen Delivery Method Room Air 10/30/23 15:37 BMI result Body Mass Index 35.4 Const General: comfortable; No acute distress Orientation/consciousness: patient oriented x3 Eyes General: appearance normal, both eyes and all related structures Visual Ghosh: normal visual ghosh by confrontation Neck Neck: Yes supple and Yes no JVD Resp Effort & Inspection: normal respiratory effort and respiratory effort not decreased Auscultation: rhonchi Cardio Palpation: no palpable S3 and no palpable S4 Heart sounds: no rubs GI Inspection: Yes normal to inspection Palpation (GI): Soft to palpation Percussion: Yes normal to percussion Auscultation: normal bowel sounds General: Yes no CVA tenderness Back/Spine/Pelvis Back: no CVA tenderness Skin General skin exam: no petechiae and no purpura Neuro General: patient oriented x3 and no focal motor deficits Extrem General: No clubbing and No edema Results Reviewed Nephrology Results: Hgb 13.7 g/dl (12.0-16.0) 05/19/23 WBC 10.3 X10*3/uL (4.8-10.8) 05/19/23 Plt Count 215 X10*3/uL (160-400) 05/19/23 Sodium 140 mmol/L (135-145) 05/19/23 Potassium 4.1 mmol/L (3.3-5.1) 05/19/23 Chloride 105 mmol/L (96-108) 05/19/23 Carbon Dioxide 25 mmol/L (22-29) 05/19/23 BUN 17 mg/dL (9-16) H 05/19/23 Creatinine 1.03 mg/dL (0.5-1.4) 05/19/23 Calcium 9.3 mg/dL (8.4-10.2) 05/19/23 Urine Protein Negative mg/dL (Neg-Trace) 05/19/23 Assessment & Plan Assessment & Plan (1) Renal artery stenosis: Comment: May 2022: Elevated velocities in the left renal artery suggesting renal artery stenosis. CT angiography could be performed for further evaluation. CT angio 10/2022 Approximately 50% stenosis of bilateral proximal renal arteries. Code(s): I70.1 - Atherosclerosis of renal artery Category: Medical (2) Hypertension: Code(s): I10 - Essential (primary) hypertension Category: Medical Qualifiers: Hypertension type: essential hypertension Qualified Code(s): I10 - Essential (primary) hypertension Plan Resistant hypertension in a middle-aged woman Based on imaging study she probably has renal artery stenosis leading to resistant hypertension.. The CTA showed more than 50% stenosis bilaterally. Given the fact that she is on 4 antihypertensive medications blood pressure still suboptimal I believe the SHANNON is hemodynamically significant. She was scheduled for a renal angiogram however she canceled procedure. She does not want any intervention or surgeries. Explained the importance of this procedure however she is very adamant that she does not want the procedure done. The 2nd best option would be to maximize her medications. I would add Aldactazide 25/2 one a day and titrate the dose. Encouraged her to stay on low-sodium diet. If she I would changes mind and decided to undergo renal angiogram I will be happy to arrange the same. Medications: New spironolacton-hydrochlorothiaz 25-25 mg 1 tab PO DAILY 90 tabs 0RF Coding Level of Care Code Est Pt Level 4 (44139) Diagnoses Renal artery stenosis I70.1 Essential hypertension I10 Hypertension type: essential hypertension
== END 2023-10-30 15:56 | disposition home or self-care (01) ==
PROVIDERS: PCP Internal Medicine; Referring Provider Internal Medicine; Visit Provider Internal Medicine Hypertension Specialist
DX: I70.1 Atherosclerosis of renal artery (principal); I10 Essential (primary) hypertension
CPT/HCPCS: 99214

== ENCOUNTER → 2023-10-30 15:32 | Outpatient (BNVA) | payer OTHER, SELFPAY | PROVIDERS: PCP Internal Medicine; Referring Provider Internal Medicine; Visit Provider Internal Medicine Hypertension Specialist | DX: I70.1 Atherosclerosis of renal artery (principal); I10 Essential (primary) hypertension | CPT/HCPCS: 99212 ==

== ENCOUNTER 2024-05-31 08:59 | Emergency (ER) | payer OTHER, SELFPAY ==
--- NOTE | ~2024-05-31 | CT_ITS ---
EXAMINATION: CT CERVICAL SPINE WITHOUT IV CONTRAST HISTORY: trauma. TECHNIQUE: Helical CT of the cervical spine was performed per standard departmental protocol. Coronal and sagittal reformatted images were also evaluated. One or more of the following techniques was used for dose reduction: Automated exposure control, adjustment of the mA and/or kV according to patient size, use of iterative reconstruction technique. DLP: 357.96 mGy-cm COMPARISON: There are no prior studies for comparison. FINDINGS: CERVICAL SPINE: There is straightening of the normal cervical lordosis. The vertebral bodies maintain normal height without evidence of fracture or subluxation. There is mild degenerative disc disease at the C4-5 and C5-6 levels, with disc space narrowing and osteophyte formation. There is narrowing of the left neural foramen at the C5-6 level secondary to uncovertebral joint hypertrophy. Evaluation for disc pathology is limited by lack of intrathecal contrast material. BRAIN: The visualized portion of the brain is unremarkable. SINUSES: The visualized paranasal sinuses, mastoid air cells and middle ear cavities are unremarkable. LUNG APICES: The visualized lung apices are clear. SOFT TISSUES: There is diffuse enlargement of the thyroid gland. No discrete nodules are identified. CT/CT cervical spine wo IV con IMPRESSION: Straightening of the normal cervical lordosis. Degenerative changes as described. No evidence of fracture or subluxation. Electronically signed by: Suresh Schroeder MD 05/31/2024 01:55 PM ALFRED
--- NOTE | ~2024-05-31 | XR_ITS ---
EXAMINATION: XR LUMBOSACRAL SPINE CLINICAL INFORMATION: trauma COMPARISON: 11/03/2019. TECHNIQUE: Three views of the lumbosacral spine. FINDINGS: The vertebral bodies and posterior elements are normal. The disc spaces are preserved and the vertebral alignment is normal. Normal facet alignment. Minimal degenerative facet changes L4-5. There are no soft tissue abnormalities aside from minimal vascular calcification. XR/XR lumbar spine 2-3V IMPRESSION: No acute findings lumbar spine. No fracture seen. Electronically signed by: Toño Campoverde MD 05/31/2024 02:07 PM [facility]
--- NOTE | ~2024-05-31 | CT_ITS ---
EXAMINATION: CT HEAD WITHOUT IV CONTRAST HISTORY: trauma. TECHNIQUE: Unenhanced helical CT of the head was performed per standard departmental protocol. Coronal and sagittal reformats of the head were also evaluated. One or more of the following techniques was used for dose reduction: Automated exposure control, adjustment of the mA and/or kV according to patient size, use of iterative reconstruction technique. DLP: 593.40 mGy-cm COMPARISON: There are no prior studies for comparison. FINDINGS: BRAIN: The brain parenchyma is unremarkable. There is normal nunes/white differentiation. The ventricular system is normal in size and configuration. There is no mass effect or midline shift. No intra- or extra-axial fluid collections are identified. SINUSES: The visualized paranasal sinuses are clear. The mastoid air cells and middle ear cavities are well pneumatized. ORBITS: The visualized orbits are unremarkable. BONES/SOFT TISSUES: The extracranial soft tissues are unremarkable. The calvarium is intact. No suspicious lytic or sclerotic lesions. CT/CT head/brain wo IV con IMPRESSION: Unremarkable head CT without contrast. Electronically signed by: Suresh Schroeder MD 05/31/2024 01:51 PM [facility]
--- NOTE | ~2024-05-31 | XR_ITS ---
EXAMINATION: XR CHEST CLINICAL INFORMATION: trauma COMPARISON: 03/14/2019. TECHNIQUE: 2 views of the chest were obtained. FINDINGS: Cardiac enlargement, mild. Mediastinal and hilar contours appear normal. The lungs are clear bilaterally. There is no pneumothorax or pleural effusion. There is no focal osseous or soft tissue abnormality. No discrete fracture is evident. XR/XR chest 2V IMPRESSION: No active disease. No acute posttraumatic abnormality. Mild cardiac enlargement. Electronically signed by: Toño Campoverde MD 05/31/2024 02:05 PM [facility]
[2024-05-31 09:12] VITALS: BP 183/74; PULSE 69; RESP 19; TEMP 36.6; O2SAT 98; BMI 34.3
--- NOTE | 2024-05-31 13:08 | ED.FALL ---
HPI - Fall General Chief Complaint: Fall Stated Complaint: Fall 05/30/24 Time Seen by Provider: 05/31/24 14:15 Source: patient Limitations: no limitations History of Present Illness ED Provider: Zoya Hodges PA-C HPI Narrative: 59-year-old female with a history of hypertension, hyperlipidemia, hypothyroidism, obesity, who presents after a fall that occurred yesterday. Patient states she slipped and fell on the ice, falling backwards landing on her back striking her head. She now complains of headache with dizziness, neck pain and back pain the full length of her back. No loss consciousness, the patient is not on blood thinners. Related Data Home Medications ?Medication ?Instructions ?Recorded ?Confirmed amlodipine 10 mg tablet 10 mg PO DAILY 02/04/20 10/30/23 Previous Rx's ?Medication ?Instructions ?Recorded albuterol sulfate 90 mcg/actuation 2 puff inhalation QID PRN 04/09/21 aerosol inhaler (ProAir HFA) shortness of breath or wheezing #8.5 grams blood pressure monitor #1 ea 04/09/21 lisinopril 40 mg tablet 40 mg PO DAILY 30 days #90 tabs 09/16/21 hydrochlorothiazide 25 mg tablet 25 mg PO DAILY #90 tabs 09/13/22 clotrimazole 1 % topical cream 1 appl topical BID 4 weeks #45 11/10/22 grams levothyroxine 150 mcg tablet 150 mcg PO DAILY #30 tabs 11/10/22 triamcinolone acetonide 0.5 % 1 appl topical TID #45 grams 11/10/22 topical cream metoprolol succinate 50 mg 50 mg PO DAILY #30 tabs 12/29/22 tablet,extended release 24 hr cyclobenzaprine 5 mg tablet 5 mg PO TID PRN muscle spasm #7 05/19/23 tabs spironolactone 25 1 tab PO DAILY #90 tabs 11/01/23 mg-hydrochlorothiazide 25 mg tablet ibuprofen 600 mg tablet 600 mg PO Q6H PRN fever or pain 05/31/24 #20 tabs methocarbamol 750 mg tablet 750 mg PO BID PRN pain, moderate 05/31/24 #8 tabs Allergies Allergy/AdvReac Type Severity Reaction Status Date / Time mite-Dermatophagoides Allergy Unknown RASH, Verified 05/31/24 09:14 pteronyssinus SWELLING [DUST MITE] pollen extracts [POLLEN] Allergy Unknown RUNNY Verified 05/31/24 09:14 NOSE, ITCHY EYES Review of Systems Review of Systems: Yes all other systems are reviewed and are negative Constitutional: Constitutional: Denies fatigue, Denies fever(s) and Reports headache(s) ENT: Reports dizziness, Reports headache(s) and Reports neck pain Cardiovascular: Cardiovascular: Denies chest pain and Denies dyspnea Respiratory: Respiratory: Denies dyspnea Gastrointestinal: Gastrointestinal: Denies abdominal pain, Denies diarrhea, Reports nausea and Denies vomiting Musculoskeletal: Musculoskeletal: Reports back pain, Reports myalgias and Reports neck pain Neurologic: Reports dizziness and Reports headache(s) Endocrine: Endocrine: Denies fatigue PMFSH Past Medical History Attestation statement: The following information was validated with the patient. Medical History Right hand pain Well woman exam Lateral epicondylitis of right elbow Cervical cancer screening Screening for diabetes mellitus Contact dermatitis Vitamin D deficiency Obesity (BMI 30-39.9) Left fibular fracture Hypercholesterolemia Hypertension Hypothyroid Surgical History History of colonoscopy H/O tubal ligation Family History Family History Father Medical history unknown Mother Cancer Diabetes Paternal Grandmother Esophageal cancer Maternal Uncle Myocardial infarction CVD (cardiovascular disease) Maternal Grandmother CVD (cardiovascular disease) Maternal Aunt CVD (cardiovascular disease) CVA (cerebral vascular accident) Brother Leukemia Social History Social History Housing: Apartment Alcohol intake: never Patient Tobacco Use Status: Former Tobacco user Tobacco use type: Cigarette Years Smoked: quit 13 years old e-Cigarette/Vaping Use: Never Used Second Hand Smoke Exposure: No Advance Directives: No Advance Directives Information Provided: Yes Do you have a plan to hurt others: No Plan service: No 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al status: employed 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 Cognitive needs: No Hearing needs: No Vision needs: No Physical Exam Vital Signs: Vital Signs: Last Vital Signs Temp 98 F 05/31/24 09:12 Pulse 69 05/31/24 09:12 Resp 19 05/31/24 09:12 BP 183/74 H 05/31/24 09:12 Pulse Ox 98 05/31/24 09:12 O2 Del Method Room Air 05/31/24 09:12 BMI result Body Mass Index 34.3 Const: Other: Alert well-appearing Orientation/consciousness: patient oriented x3 Neck: Other: Full range of motion Resp: Effort & Inspection: normal respiratory effort Cardio: Other: Normal peripheral perfusion Back/Spine/Pelvis: Other: Tenderness over entire back no deformity Skin: Other: Warm dry no rash Neuro: General: patient oriented x3, gait normal, no focal motor deficits and CN's II-XI intact bilaterally Extrem: Other: Moves all extremities independently, ambulating with a ease Psych: Other: Cooperative Course Course Course Narrative: This is a rapid medical exam performed by Zoya Hodges PA-C. The patient is a 59-year-old female with a history of hypertension, hyperlipidemia, hypothyroidism, obesity, who presents after a fall that occurred yesterday. Patient states she slipped and fell on the ice, falling backwards landing on her back striking her head. She now complains of headache with dizziness, neck pain and back pain the full length of her back. Patient's exam was unremarkable, she is moving her neck with a ease, there was no evidence of head trauma, no deformity noted over the back. Imaging ordered. She is stable and can return to the waiting room pending her full medical assessment. Medical Decision Making Medical Decision Making MDM Narrative: 59-year-old female with a history of hypertension, hyperlipidemia, hypothyroidism, obesity, who presents after a fall that occurred yesterday. Patient states she slipped and fell on the ice, falling backwards landing on her back striking her head. She now complains of headache with dizziness, neck pain and back pain the full length of her back. No loss consciousness, the patient is not on blood thinners. Problem: Age and obesity History: Per patient I have considered the following differential diagnoses: Fracture, dislocation, cervical spine injury, intracranial hemorrhage, contusion, musculoskeletal strain. Plan: Screening x-rays and CT scans were obtained from triage, everything is negative. The patient has musculoskeletal strain with a headache, she may have some degree of a concussion. We will send with home care instructions. She can follow up with the primary care provider. I have independently reviewed the following tests: Chest x-ray: XR/XR chest 2V IMPRESSION: No active disease. No acute posttraumatic abnormality. Mild cardiac enlargement. Electronically signed by: Toño Campoverde MD 05/31/2024 02:05 PM EST RP X-ray lumbar spine: XR/XR lumbar spine 2-3V IMPRESSION: No acute findings lumbar spine. No fracture seen. Electronically signed by: Toño Campoverde MD 05/31/2024 02:[address] brain: CT/CT head/brain wo IV con IMPRESSION: Unremarkable head CT without contrast. Electronically signed by: Suresh Schroeder MD 05/31/2024 01:[address] cervical spine: CT/CT cervical spine wo IV con IMPRESSION: Straightening of the normal cervical lordosis. Degenerative changes as described. No evidence of fracture or subluxation. Electronically signed by: Suresh Schroeder MD 05/31/2024 01:55 PM EST RP Discharge Plan Discharge Clinical Impression: Contusion of head, Musculoskeletal strain Patient Disposition: Home, Self-Care Instructions: Contusion in Adults (ED), Bone Bruise (ED) Additional Instructions: The CT scans of your brain and cervical spine were normal, the x-ray of the chest and your back were normal as well. You have musculoskeletal strain. See home care instructions. Use the ibuprofen as directed, this is an anti-inflammatory take it with food. Use the methocarbamol, this is a muscle relaxant, as needed for further discomfort. To note this medication will cause drowsiness, do not drive or operate machinery while taking the medication. Follow up with your primary care provider as needed. Prescriptions: New ibuprofen 600 mg tablet 600 mg PO Q6H PRN (Reason: fever or pain) Qty: 20 0RF methocarbamol 750 mg tablet 750 mg PO BID PRN (Reason: pain, moderate) Qty: 8 0RF No Action lisinopril 40 mg tablet 40 mg PO DAILY 30 Days Qty: 90 2RF hydrochlorothiazide 25 mg tablet 25 mg PO DAILY Qty: 90 3RF levothyroxine 150 mcg tablet 150 mcg PO DAILY Qty: 30 3RF metoprolol succinate 50 mg tablet extended release 24 hr 50 mg PO DAILY Qty: 30 3RF cyclobenzaprine 5 mg tablet 5 mg PO TID PRN (Reason: muscle spasm) Qty: 7 0RF amlodipine 10 mg tablet 10 mg PO DAILY albuterol sulfate [ProAir HFA] 90 mcg/actuation HFA aerosol inhaler 2 puff inhalation QID PRN (Reason: shortness of breath or wheezing) Qty: 8.5 0RF (DME) blood pressure monitor Kit See Rx Instructions .ROUTE .MEDSUPPLY Qty: 1 0RF Rx Instructions: As directed triamcinolone acetonide 0.5 % cream 1 appl topical TID Qty: 45 0RF clotrimazole 1 % cream 1 appl topical BID 28 Days Qty: 45 0RF spironolacton-hydrochlorothiaz 25-25 mg tablet 1 tab PO DAILY Qty: 90 0RF Stand Alone Forms: Work/School Release Print Language: Hungarian
--- OUTSIDE RECORDS SUMMARY | 2024-05-31 14:39 | XMS_ITS | Clinical Summary ---
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 Name Role Phone Unavailable Primary Care Provider Unavailabl e Social History Tobacco Use Types Packs/Day Years Used Date Smoking Tobacco: Never Assessed Comments Unknown Sex and Gender Information Value Date Recorded Sex Assigned at Female 02/21/2022 10:15 AM EDT Legal Sex Female 10:15 AM EDT Gender Identity Female 07/26/2023 8:32 AM EDT Sexual Orientation Choose not to disclose 2023 8:32 AM EDT Plan of Treatment Health Maintenance Due Date Last Done Comments CT Colonography 1964 Colonoscopy 1964 Colorectal Cancer Screening 1964 Depression Screening 1964 FIT DNA/Cologuard 1964 FIT 1964 FOBT 1964 HIV Screening 1964 Lipid Panel 1964 SDOH Screening 1964 Sigmoidoscopy 1964 Alcohol/Substance Use Screening 1976 Tobacco Screening 1976 Hepatitis C Screening 01/03/1982 Pap Smear 01/03/1985 Cervical Cancer Screening 01/03/1994 HPV/Cotest 01/03/1994 Mammogram 2004 Pneumococcal Vaccine: 50+ Years (1 of 1 - PCV) 01/03/2014 Zoster Vaccines (1 of 2) 01/03/2014 Dental Oral Exam 08/30/2019 02/28/2019 Dental Prophylaxis 10/23/2019 04/22/2019 Dental X-Ray: Bitewings 03/01/2020 02/28/2019 Dental X-Ray: Full Mouth 03/01/2022 02/28/2019 COVID-19 Vaccine (1 - 2023-2 5 season) 2023 Influenza Vaccine (#1) 2023 DTaP/Tdap/Td Vaccines (2 - T d or Tdap) 04/21/2031 04/21/2021, 06/29/2015 RSV Patients and Patients Aged 60 years or older (1 - 1-dose 75+ series) 01/03/2039 HIB Vaccines Aged Out No longer eligi ble based on patient's age to complete this topic HPV Vaccines Aged Out No longer eligi ble based on patient's age to complete this topic Hepatitis A Vaccines Aged Out No long er eligible based on patient's age to complete this topic Hepatitis B Vaccines Aged Out No long er eligible based on patient's age to complete this topic IPV Vaccines Aged Out No longer eligi ble based on patient's age to complete this topic Meningococcal Vaccine Aged Out No ermias dana eligible based on patient's age to complete this topic Pneumococcal Vaccine: Pediatrics (0 to 5 Years) and At-Risk Patients (6 to 49) Years) Aged Out No longer eligible b ased on patient's age to complete this topic RSV under 20 months Aged Out No longe r eligible based on patient's age to complete this topic Rotavirus Vaccines Aged Out No longer eligible based on patient's age to complete this topic Procedures Procedure Name Priority Date/Time Associated Diagnosis Comments PROPHYLAXIS - ADULT Routine 04/22/2019 1 2:00 AM EST DIAGNOSTIC - DIAGNOSTIC IMAGING - INTRAORAL - COMPREHENSIVE SERIES OF RADIOGRAPHIC IMAGES Routine 02/28/2019 12:00 AM EST COMPREHENSIVE ORAL EVALUATION - NEW OR ESTABLISHED PATIENT Routine 02/28/2019 12:00 AM EST from Last 3 Months or Most Recently Relevant to Health Maintenance Insurance DENTAL - HSN PARTIAL (MEDICAID) * Guarantor: Kiesha Bermudez I Account Type Relation to Patient Date of Phone Billing Address Personal/Family Self [address] [place] [id number]
--- OUTSIDE RECORDS SUMMARY | 2024-05-31 14:39 | XMS_ITS | Encounter Summary ---
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 Name Role Phone Unavailable Primary Care Provider Unavailabl e Encounter Details Date Type Department Care Team (Latest Contact Info) Description 04/22/2019 Abstract [facility]HC CONVERSIONS Dental, Provider, DDS Social History Tobacco Use Types Packs/Day Years Used Date Smoking Tobacco: Never Assessed Comments Unknown Sex and Gender Information Value Date Recorded Sex Assigned at Female 02/21/2022 10:15 AM EDT Legal Sex Female 10:15 AM EDT Gender Identity Female 07/26/2023 8:32 AM EDT Sexual Orientation Choose not to disclose 2023 8:32 AM EDT documented as of this encounter Plan of Treatment Not on file documented as of this encounter Visit Diagnoses Not on filedocumented in this encounter
--- OUTSIDE RECORDS SUMMARY | 2024-05-31 14:39 | XMS_ITS | Clinical Summary ---
Author Organization [facility] Address [address] [place] [address] Phone Care Team Providers Care Shearing Machine Operator Name Role Phone Dakota Bills MD Primary Care Provider [phone] Allergies Active Allergy Reactions Criticality Noted Date Comments Other 08/25/2022 mites Pollen Extract 08/25/2022 Medications hydroCHLOROthiaz theresa 25 MG tablet Take 25 mg by mouth 1 (one) time each day 08/15/2022 Active metoprolol succinate XL (TOPROL XL) 50 MG 24 hr tablet Take 50 mg by mouth 1 (one) time each day 07/28/2022 Active amLODIPine (NORVASC) 10 MG tablet Take 10 mg by mouth 1 (one) time each day Active levothyroxine sodium (TIROSINT) 125 MCG capsule Take 125 mcg by mouth 1 (one) time each day Active lisinopril 40 MG tablet Take 40 mg by mouth 1 (one) time each day Active fexofenadine (YANY) 180 MG tablet Take 180 mg by mouth 1 (one) time each day Active Albuterol Sulfate 108 (90 Base) MCG/ACT aerosol powder Inhale 2 Puffs/m2 4 (four) times a day if needed Active Active Problems Problem Noted Date Diagnosed Date Hypertension 08/23/2022 Family History Medical History Relation Comments Leukemia Brother Heart disease Maternal Grandmother cardiovascu lar disease Cancer Mother Diabetes Mother Heart disease Mother's Brother cardiovascular disease Heart disease Mother's Sister cardiovascular d isease Cancer Paternal Grandmother esophageal Relation Status Comments Brother Father Maternal Grandmother Mother Mother's Brother Mother's Sister Paternal Grandmother Social History Tobacco Use Types Packs/Day Years Used Date Smoking Tobacco: Former Cigarettes Q uit: 2009 Smokeless Tobacco: Never Tobacco Cessation:Counseling Given: Not Answered Alcohol Use Standard Drinks/Week Comments Never 0 (1 standard drink = 0.6 oz pur e alcohol) Comments Unknown Sex and Gender Information Value Date Recorded Sex Assigned at Not on file Legal Sex Female 3:40 PM EST Gender Identity Not on file Sexual Orientation Not on file Plan of Treatment Health Maintenance Due Date Last Done Comments Breast Cancer Screening 1964 Pneumococcal Vaccine: Pediat rics (0 to 5 Years) and At-Risk Patients (6 to 64 Years) (1 of 2 - PCV) 01/03/1970 Colorectal Cancer Screening: Annual FOBT 01/03/2013 Colorectal Cancer Screening: Colonoscopy 01/03/2013 Colorectal Cancer Screening: Sigmoidoscopy 01/03/2013 Influenza Vaccine (#1) 2023 Hepatitis B Vaccine Aged Out No longe r eligible based on patient's age to complete this topic Insurance Care Teams Shearing Machine Operator Relationship Specialty Start Date End Date Dakota Bills MD [id number] JAVED GRAY PCP - General Internal Medicine 05/24/22
[2024-05-31 15:34] VITALS: BP 183/74; PULSE 69; RESP 19; TEMP 36.6; O2SAT 98
== END 2024-05-31 15:34 | disposition home or self-care (01) ==
PROVIDERS: Emergency Provider Emergency Medicine Emergency Medical Services; PCP Internal Medicine
DX: S00.93XA Contusion of unspecified part of head, initial encounter (principal); M79.10 Myalgia, unspecified site; R07.89 Other chest pain; M54.50 Low back pain, unspecified; M54.2 Cervicalgia; R42 Dizziness and giddiness; R51.9 Headache, unspecified; W00.0XXA Fall on same level due to ice and snow, initial encounter; Y93.9 Activity, unspecified; Y92.9 Unspecified place or not applicable; Y99.8 Other external cause status
CPT/HCPCS: 70450; 71046; 72100; 72125; 99282; 99284

== ENCOUNTER → 2024-05-31 13:06 | Outpatient (BNV) | payer OTHER, SELFPAY | PROVIDERS: PCP Internal Medicine; Visit Provider Radiology Diagnostic Radiology | DX: R51.9 Headache, unspecified (principal); R42 Dizziness and giddiness; M54.9 Dorsalgia, unspecified; W00.9XXA Unspecified fall due to ice and snow, initial encounter | CPT/HCPCS: 70450; 71046; 72100; 72125 ==

== ENCOUNTER 2024-06-14 14:03 | Outpatient (AMB) | payer OTHER, SELFPAY ==
--- NOTE | 2024-06-14 14:07 | MHC.PC.OV ---
Vital Signs 06/14/24 14:08 Height 4 ft 11 in Weight 171 lb 6 oz BMI 34.6 BP 136/82 Blood Pressure Location Lt brachial Position Sitting Pulse 78 Pulse Source Pulse Oximeter Pulse Oximetry (%) 95 Oxygen Delivery Method Room Air Intake Visit Reasons: [facility]/Fell-Head Concussion/Discharged 05-31 Hospital Technician Required: Yes Accompanied by: Self / Same As Patient Allergies mite-Dermatophagoides pteronyssinus [DUST MITE] Allergy (Unknown, Verified 06/14/24 14:09) RASH, SWELLING pollen extracts [POLLEN] Allergy (Unknown, Verified 06/14/24 14:09) RUNNY NOSE, ITCHY EYES Medication List - Last Reconciled 06/14/24 by Bekah Baker NP amlodipine 10 mg PO DAILY blood pressure monitor As directed cyclobenzaprine 5 mg PO BEDTIME hydrochlorothiazide 25 mg PO DAILY levothyroxine 150 mcg PO DAILY lisinopril 40 mg PO DAILY 30 days meloxicam 7.5 mg PO DAILY metoprolol succinate ER 50 mg PO DAILY spironolacton-hydrochlorothiaz 25-25 mg 1 tab PO DAILY Tobacco use date assessed: 06/14/24 Dental Screening Dental Screen Date: 06/14/24 Did you have a dental visit in the last 12 months?: No Did you have a dental problem in the last 6 months where you did not have access to dental care?: No Was dental information given to patient?: No HPI HPI Comments History of Present Illness Details 59 y/o female patient who presents to the clinic for TCM. Pmhx significant for hypertension, hyperlipidemia, hypothyroidism, and obesity; presented to the [facility]-ED on 05/31/24 c/o Fall she slipped and fell on the ice, falling backwards landing on her back striking her head on the ground. No loss consciousness. Screening x-rays and CT scans were obtained from ED, with negative results. She was discharged home the same day 05/31/24 with mild degree of Concussion. She now complains of headache with dizziness, severe neck pain and back pain the full length of her back. 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 Pt asking to have extended time off from work due to pain. [facility] Medical History (Updated 06/14/24 @ 14:46 by Bekah Baker NP) Cervicalgia Right hand pain Well woman exam Lateral epicondylitis of right elbow Cervical cancer screening Screening for diabetes mellitus Contact dermatitis Vitamin D deficiency Obesity (BMI 30-39.9) Left fibular fracture Hypercholesterolemia Hypertension Hypothyroid Surgical History History of colonoscopy H/O tubal ligation Family History Father Medical history unknown Mother Cancer Diabetes Paternal Grandmother Esophageal cancer Maternal Uncle Myocardial infarction CVD (cardiovascular disease) Maternal Grandmother CVD (cardiovascular disease) Maternal Aunt CVD (cardiovascular disease) CVA (cerebral vascular accident) Brother Leukemia Social History Housing: Apartment Alcohol intake: never Patient Tobacco Use Status: Former Tobacco user Tobacco use type: Cigarette Years Smoked: quit 13 years old e-Cigarette/Vaping Use: Never Used Second Hand Smoke Exposure: No service: No 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al status: employed 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 1. Little interest or pleasure in doing things: not at all 2. Feeling down, depressed, or hopeless: not at all 3. Trouble falling or staying asleep, or sleeping too much: not at all 4. Feeling tired or having little energy: not at all 5. Poor appetite or overeating: not at all 6. Feeling bad about yourself - or that you are a failure or have let yourself or your family down: not at all 7. Trouble concentrating on things, such as reading the newspaper or watching television: not at all 8. Moving or speaking so slowly that other people could have noticed. Or the opposite - being so fidgety or restless that you have been moving around a lot more than usual: not at all 9. Thoughts that you would be better off or of hurting yourself in some way: not at all Total score: 0 Depression Screening Interpretation: Negative Depression Screening Done: Yes Source: Developed by Drs. Suresh Mcwilliams, Lexy BKenny Fontenot and colleagues, with an educational kevin from [employer]. Thrive Questionnaire Date Thrive assessed: 06/14/24 I am a: Patient What is your living situation today?: I have a steady place to live Within the past 12 months, did the food you bought not last and you didn't have the money to get more?: Never true Within the past 12 months, did you worry whether your food would run out before you got money to buy more?: Never true Do you have trouble paying for medicines?: No Do you have trouble getting transportation to medical appointments?: No Do you have trouble paying your heating and electricity bill?: No Do you have trouble taking care of your child, family member or friend?: No Do you have trouble with day-to-day activities such as bathing, preparing meals, shopping, managing finances, etc.?: No Are you currently unemployed and looking for a job?: No Are you interested in more education?: No Please select the resources that you would like help with: None Currently or been in a relationship where the following occur: No concerns reported THRIVE Score: 0 AUDIT C Alcohol Use Questionnaire (AUDIT-C) 1. How often do you have a drink containing alcohol?: Never 2. How many drinks containing alcohol do you have on a typical day when you are drinking?: 1 or 2 3. How often do you have six or more drinks on one occasion?: Never Total Score: 0 Score Reviewed/Action Taken: No CHRISTIANA-7 AMB Questionnaire CHRISTIANA-7 Date CHRISTIANA - 7 assessed: 06/14/24 Feeling nervous, anxious, or on edge: 0 = Not at all Not being able to stop or control worryin = Not at all Worrying too much about different things: 0 = Not at all Trouble relaxin = Not at all Being so restless that it is hard to sit still: 0 = Not at all Becoming easily annoyed or irritable: 0 = Not at all Feeling afraid as if something awful might happen: 0 = Not at all Total CHRISTIANA-7 score (0-4 normal; 5-9 mild; 10-14 moderate; 15-21 severe): 0 Source: Developed by Drs. Suresh Mcwilliams, Kenny Guevara and colleagues, with an educational kevin from [employer]. Review of Systems Const All systems reviewed & are unremarkable except as noted in HPI and below Physical exam (Primary Care) Vital Signs: Last Vital Signs Pulse 78 06/14/24 14:08 BP 136/82 06/14/24 14:08 Pulse Ox 95 06/14/24 14:08 Oxygen Delivery Method Room Air 06/14/24 14:08 BMI result Body Mass Index 34.6 Tobacco/Smoking Status: Tobacco use Status Tobacco use date assessed 06/14/24 06/14/24 14:12 Patient Tobacco Use Status Former Tobacco user 06/14/24 14:12 Tobacco use type Cigarette 06/14/24 14:12 e-Cigarette/Vaping Use Never Used 06/14/24 14:12 PHQ-9: PHQ-9 Score PHQ-9: Total score 0 06/14/24 14:20 Depression Screening Interpretation: Negative Thrive Assessment: Date of Thrive Assessment Date Thrive assessed 06/14/24 06/14/24 14:12 Currently or been in a relationship where the following occur: No concerns reported Const General: cooperative and no acute distress; No comfortable Nutritional Appearance: overweight Orientation/consciousness: patient oriented x3 HENMT Head: Yes normocephalic, No Harper's sign, No hematoma, No laceration, Yes scalp tenderness and No periorbital ecchymosis Ears: external ears normal and TM's normal bilaterally General nose exam: Normal external nose present Face and sinus: Yes normal facial exam Mouth: moist mucous membranes Eyes Pupils: Equal, round and reactive pupils present Neck Neck: Yes no lymphadenopathy Back/Spine/Pelvis Cervical Spine: cervical muscular tenderness, pain with cervical ROM, cervical spasm and Cervical spine tenderness Neuro General: patient oriented x3 Cranial nerves: Yes Equal, round and reactive pupils present Coding Level of Care Code Est Pt Level 4 (06546) Diagnoses Cervicalgia M54.2 Time Spent (min) 20 Assessment & Plan Assessment & Plan (1) Cervicalgia: Code(s): M54.2 - Cervicalgia Category: Medical Plan: Placed referral for Physical Therapy. NSAIDs for pain relief. Ice/Hot Orders: Orders PT Evaluation and Treatment Today M54.2 - Cervicalgia Medications: New meloxicam 7.5 mg PO DAILY 30 tabs 0RF M54.2 - Cervicalgia prednisone 20 mg PO DAILY 10 tabs 0RF M54.2 - Cervicalgia Changed From cyclobenzaprine 5 mg PO TID PRN 7 tabs 0RF muscle spasm M54.2 - Cervicalgia To cyclobenzaprine 5 mg PO BEDTIME 10 tabs 0RF muscle spasm M54.2 - Cervicalgia Discontinued ibuprofen Discontinued Reason: Patient Completed Course 600 mg PO Q6H PRN 20 tabs 0RF fever or pain methocarbamol Discontinued Reason: Patient Completed Course 750 mg PO BID PRN 8 tabs 0RF pain, moderate albuterol sulfate 90 mcg/actuation (ProAir HFA) Discontinued Reason: Patient Completed Course 2 puffs inhalation QID PRN 8.5 grams 0RF shortness of breath or wheezing J45.909 - Unspecified asthma, uncomplicated triamcinolone acetonide 0.5% Discontinued Reason: Patient Completed Course 1 appl topical TID 45 grams 0RF L30.9 - Dermatitis, unspecified clotrimazole 1% Discontinued Reason: Patient Completed Course 1 appl topical BID 4 weeks 45 grams 0RF
[2024-06-14 14:08] VITALS: BP 136/82; PULSE 78; O2SAT 95; BMI 34.6
--- OUTSIDE RECORDS SUMMARY | 2024-06-14 14:31 | XMS_ITS | Clinical Summary ---
Author Organization [facility] Address [address] [place] [address] Phone Care Team Providers Care Government Teacher Name Role Phone Dakota Bills MD Primary Care Provider [phone] Allergies Active Allergy Reactions Criticality Noted Date [...] to complete this topic Insurance Care Teams Government Teacher Relationship Specialty Start Date End Date Dakota Bills MD [address] JAVED GRAY PCP - General Internal Medicine 05/24/22
--- OUTSIDE RECORDS SUMMARY | 2024-06-14 14:31 | XMS_ITS | Clinical Summary ---
Author Organization [employer] Address [address] [place] [address] Care Team Providers Care Cushion Cover Inspector Name Role Phone Unavailable Primary Care Provider [...] ADULT Routine 04/22/2019 1 2:00 AM EST INTRAORAL - COMPLETE SERIES OF RADIOGRAPHIC IMAGES Routine 02/28/2019 12:00 AM EST COMPREHENSIVE ORAL EVALUATION - NEW OR ESTABLISHED PATIENT Routine 02/28/2019 12:00 AM EST from Last 3 Months or Most Recently Relevant to Health Maintenance Insurance DENTAL - HSN PARTIAL (MEDICAID) * Guarantor: Kiesha Bermudez I Account Type Relation to Patient Date of Phone Billing Address Personal/Family Self [address] [place] [address] * Guarantor: Kiesha Bermudez I Account Type Relation to Patient Date of Phone Billing Address Personal/Family Self [address] [facility] [place] [address] * Guarantor: Kiesha Bermudez I Account Type Relation to Patient Date of Phone Billing Address Personal/Family Self [address] [place] [address] * Guarantor: Kiesha Bermudez I Account Type Relation to Patient Date of Phone Billing Address Personal/Family Self [address] [place] [address]
--- OUTSIDE RECORDS SUMMARY | 2024-06-14 14:31 | XMS_ITS | Encounter Summary ---
Author Organization [employer] [facility] Address [address] [place] [address] Care Team Providers Care Casting Technician Name Role Phone Unavailable Primary Care Provider [...]
== END 2024-06-14 16:54 | disposition home or self-care (01) ==
PROVIDERS: PCP Internal Medicine; Visit Provider Nurse Practitioner Family
DX: M54.2 Cervicalgia (principal)

== ENCOUNTER → 2024-06-14 14:03 | Outpatient (BNVA) | payer OTHER, SELFPAY | PROVIDERS: PCP Internal Medicine; Visit Provider Nurse Practitioner Family | DX: M54.2 Cervicalgia (principal); I10 Essential (primary) hypertension; E78.5 Hyperlipidemia, unspecified; E03.9 Hypothyroidism, unspecified; E66.9 Obesity, unspecified; Z68.34 Body mass index [BMI] 34.0-34.9, adult; Z79.899 Other long term (current) drug therapy; Z91.81 History of falling | CPT/HCPCS: 96127; 99212 ==

== ENCOUNTER 2024-09-19 15:34 | Outpatient (AMB) | payer OTHER, SELFPAY ==
--- NOTE | 2024-09-19 15:51 | A.OFFVIS_ITS ---
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 No complaints. Last Pap/HPV was negative in 03/15 Last Mammogram was BI-RADS 1 in 04/15 Last Colonoscopy was in 2014, the recommendation was to repeat in 10 years [facility] Medical History (Updated 09/19/24 @ 15:56 by Alton Kay MD) Well woman exam Cervicalgia Right hand pain Lateral epicondylitis of right elbow Cervical cancer screening Screening for diabetes mellitus Contact dermatitis Vitamin D deficiency Obesity (BMI 30-39.9) Left fibular fracture Hypercholesterolemia Hypertension Hypothyroid Surgical History History of colonoscopy H/O tubal ligation Family History Father Medical history unknown Mother Cancer Diabetes Paternal Grandmother Esophageal cancer Maternal Uncle Myocardial infarction CVD (cardiovascular disease) Maternal Grandmother CVD (cardiovascular disease) Maternal Aunt CVD (cardiovascular disease) CVA (cerebral vascular accident) Brother Leukemia Social History Housing: Apartment Alcohol intake: never Patient Tobacco Use Status: Former Tobacco user Tobacco use type: Cigarette Years Smoked: quit 13 years old e-Cigarette/Vaping Use: Never Used Second Hand Smoke Exposure: No service: No 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al status: employed 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 Cognitive needs: No Hearing needs: No Vision needs: No Female Reproductive History Menstrual Age of Menarche: 10 Date of last pap smear: 03/04/22 Date of Mammogram: 03/29/23 Review of Systems Const All systems reviewed & are unremarkable except as noted in HPI and below Card Reports as per HPI Resp Reports as per HPI GI Reports as per HPI and Reports no additional complaints Reports as per HPI Physical Exam Const General: cooperative, healthy appearing and comfortable Chest Chest palpation & inspection: normal inspection of the chest and normal palpation of entire chest wall Breast/axilla inspection: normal inspection of the breasts and normal inspection of the axillae Breast/axilla palpation: normal palpation of the breasts, normal palpation of th e axillae and no axillary lymphadenopathy Resp Effort & Inspection: normal respiratory effort Auscultation: clear to auscultation bilaterally Percussion: percussion normal Cardio Palpation: normal PMI Rate: regular rate Rhythm: regular rhythm Heart sounds: no murmurs and no rubs Peripheral pulses: Peripheral pulses 2+ throughout GI Inspection: Yes normal to inspection Palpation (GI): Soft to palpation, nontender, no guarding, not rigid and No hepatosplenomegaly present Percussion: Yes normal to percussion Auscultation: normal bowel sounds Rectal Exam - Female: deferred General: Yes bladder normal to palpation External Female Exam: No lesion Speculum Exam - Vagina: normal appearance of the vagina, normal palpation, normal vaginal discharge and not erythematous Speculum Exam - Cervix: normal appearance of the cervix and normal palpation Bimanual exam- vagina & uterus: normal bimanual exam, normal palpation, uterine size normal, bladder normal to palpation, consistency normal and normal palpation Bimanual Exam- Adnexa, other: normal adnexae, no masses and no tenderness Assessment & Plan Assessment & Plan (1) Well woman exam: Code(s): Z01.419 - Encounter for gynecological examination (general) (routine) without abnormal findings Category: Medical Plan: Co testing but indicated this. Counseled the patient about the recommended dietary allowance of 1200 mg of Calcium & 600 IU of vitamin D. Mammogram ordered. The patient was referred to GI for screening colonoscopy . The patient was instructed to perform monthly self-breast exams and schedule annual exam in a year. All questions answered and the patient verbalized understanding. Orders: Orders MM tomosynthesis screening BI Today Z12.31 - Encounter for screening mammogram for malignant neoplasm of breast Referrals Gastroenterology Referral Z12.11 - Encounter for screening for malignant neoplasm of colon Coding Level of Care Code Est Pt Prev Care 40-64y(99062) Diagnoses Well woman exam Z01.419
[2024-09-19 15:55] VITALS: BP 160/72; BMI 34.9
== END 2024-09-19 16:20 | disposition home or self-care (01) ==
LOC: HO.HWS 15:34
PROVIDERS: PCP Internal Medicine; Visit Provider Obstetrics & Gynecology
DX: Z01.419 Encounter for gynecological examination (general) (routine) without abnormal findings (principal)
CPT/HCPCS: 99396; 99459

== ENCOUNTER → 2024-09-19 15:34 | Outpatient (BNVA) | payer OTHER, SELFPAY | PROVIDERS: PCP Internal Medicine; Visit Provider Obstetrics & Gynecology | DX: Z01.419 Encounter for gynecological examination (general) (routine) without abnormal findings (principal); E55.9 Vitamin D deficiency, unspecified; Z98.51 Tubal ligation status | CPT/HCPCS: 99396; 99459 ==

== ENCOUNTER 2024-10-22 14:00 | Outpatient (RCR) | payer OTHER, SELFPAY ==
--- NOTE | 2024-09-03 14:55 | MHC.PT.EP ---
[facility] [place] [facility] [place] [facility] [place] Office [address] Arlen Coleman [address] [phone] F: [phone] F: [phone] F: [phone] F: [phone] Physical Therapy Plan of Care Date of Evaluation: 09/03/24 Date of Surgery: Diagnosis: This is a 59 yo female presenting to skilled PT with a script for pain in thoracic spine. Assessment: This is a 59 yo female presenting to skilled PT with a script for pain in thoracic spine. Patient reported a fall on 05/30/24 at work when she slipped on the snow. She reports that she slipped and fell onto her back, buttocks, head and neck. She did not lose consciousness and was able to get up on her own afterwards but did not go to the ED. Patient reporting that her neck and back still bother her but feels maybe 50% better (she also reports total body pain still as well). Her pain is located B UT's and radiates up her head to her temples. Her pain is described as sharp. Her pain comes and goes and she can't describe anything that triggers it. She also reports mid back pain, located at the shoulder blades. This pain is described similarly. Pain limits her in everything however she can continue to do her all her own cooking, cleaning and dressing. She continues to drive. Her pain wakes her up at night. Patient is crying through this subjective report. Assessment reveals pain that ranges from up to a 6/10 at the worst. Patient demos decreased general cervical and UBE ROM, strength of B UE's and mid back as well as c-spine, TTP at UT's and scaps but in general tender to palpate and impaired posture with forward head and rounded shoulders. Based on functional limitations, impaired QOL and pain tolerance patient is a good candidate for skilled PT 1x/wk for 8wks. Frequency and Duration: The patient will be seen 2x/wk for 4wks Short Term Goals: (in 4 wks) I in HEP Improve cervical ROM by at least 25% Demo proper cervical positioning with progression of UB strengthening exercises without cues from PT (In 2 weeks) Demo I with HEP Improve shoulder AROM by at least 10 degs Demo proper scapular recruitment with appropriate shoulder strengthening exercises Supervisor Reclamation Goals: (in 8 wks) Report 50% improvement in QOL Tolerate sleeping through the night without waking from pain Improve NDI by 10 points Improve pain to no more than 2/10 at the worst (in 8 wks) Improve shoulder nonpainful AROM to almost near equal B Demo at least 1 grade improvement in MMT for shoulder Improve SPADI by at least 10 points Improve overall functional QOL by at least 50% Treatment Plan: Modalities to reduce pain, spasms and effusion. Manual therapy to restore motion and function. Therapeutic exercise to improve strength and flexibility. Neuromuscular re-education for posture and balance. Therapeutic activities to return to functional activities of daily living. Electronically signed by: Abeba Hernandez PT Please sign and return to therapist. Thank you for your referral.
--- NOTE | 2024-11-20 06:59 | MHC.PT.DC ---
[facility] [place] Office [place] Office [place] Office [address] [phone] F: [phone] F: [phone] F: [phone] F: [phone] Physical Therapy Discharge Report Diagnosis: This is a 59 yo female presenting to skilled PT with a script for pain in thoracic spine. Date of Surgery: Date of Evaluation: 09/03/24 Date of Discharge: 11/20/24 Treatments to Date: 8 Cancellations to Date: 0 No Shows to Date: 0 Discharge Status: Improved Function Independent with HEP Recommend MD Follow-up Discharge Summary: Pt has come to 8 sessions of PT for her neck, mid back and low back. She continues to have pain that ranges up to an 8/10. She was provided an HEP for her symptoms and educated to follow up with MD who referred her as well as continue exercising on her own. As she has not made much progress with PT for pain relief, it is not indicated that she continue with skilled at this time. Referral to MD, continue HEP and DC planned. Electronically signed by: Abeba Hernandez, PT Please sign and return to therapist. Thank you for your referral.
== END 2024-11-20 07:00 | disposition home or self-care (01) ==
LOC: HO.PTCHIC 14:00
PROVIDERS: PCP Internal Medicine; Visit Provider Internal Medicine
DX: M54.6 Pain in thoracic spine (principal)
CPT/HCPCS: 97014; 97110; 97140; 97162

== ENCOUNTER 2024-11-12 09:03 | Outpatient (AMB) | payer OTHER, SELFPAY ==
--- NOTE | 2024-11-12 09:18 | MHC.OFFVIS ---
Vital Signs 11/12/24 09:20 Height 4 ft 11 in Weight 173 lb BMI 34.9 BP 151/71 H Blood Pressure Location Lt brachial Position Sitting Pulse 68 Pulse Oximetry (%) 96 Oxygen Delivery Method Room Air Intake Visit Reasons: colo screening Intake Note: Patient new consult for 2nd pre colonoscopy screening. Patient denies any GIissues. Lithograph Printer Required: Yes Lithograph Printer Name: [facility] Accompanied by: Self / Same As Patient Allergies mite-Dermatophagoides pteronyssinus (DUST MITE) Allergy (Unknown, Verified 11/12/24 09:17) RASH, SWELLING pollen extracts (POLLEN) Allergy (Unknown, Verified 11/12/24 09:17) RUNNY NOSE, ITCHY EYES Medication List - Last Reconciled 11/12/24 by Louisa Contreras CNP amlodipine 10 mg PO DAILY bisacodyl 5 mg PO ONCE 1 day blood pressure monitor As directed cyclobenzaprine 5 mg PO BEDTIME hydrochlorothiazide 25 mg PO DAILY levothyroxine 150 mcg PO DAILY lisinopril 40 mg PO DAILY 30 days meloxicam 7.5 mg PO DAILY metoprolol succinate ER 50 mg PO DAILY polyethylene glycol 3350 (Miralax) 238 grams PO ONCE prednisone 20 mg PO DAILY spironolacton-hydrochlorothiaz 25-25 mg 1 tab PO DAILY HPI HPI colo screening: Details: Patient is a 59-year-old female with PMH of hypothyroidism, hyperlipidemia, hypertension. Last visit with KATHY Case 05/24/2022 for pre colonoscopy screening. This will be [place]'s second colonoscopy. The first procedure performed 10 years ago, showing some internal hemorrhoids but otherwise normal results. Currently, the patient reports having bowel movements every other day without constipation or diarrhea. There is no blood in stools, abdominal pain, nausea, vomiting, heartburn, or difficulty swallowing. Social hx: -denies ETOH use -denies recreational drug use -former smoker, cessation 10+ years ago - family hx as below -denies personal hx of CA -denies significant cardiopulmonary history -tolerated anesthesia in the past denies difficulty. [facility] Medical History (Updated 11/12/24 @ 10:00 by Louisa Contreras CNP) Colon cancer screening Well woman exam Cervicalgia Right hand pain Lateral epicondylitis of right elbow Cervical cancer screening Screening for diabetes mellitus Contact dermatitis Vitamin D deficiency Obesity (BMI 30-39.9) Left fibular fracture Hypercholesterolemia Hypertension Hypothyroid Surgical History History of colonoscopy H/O tubal ligation Family History Father Medical history unknown Mother Cancer Diabetes Paternal Grandmother Esophageal cancer Maternal Uncle Myocardial infarction CVD (cardiovascular disease) Maternal Grandmother CVD (cardiovascular disease) Maternal Aunt CVD (cardiovascular disease) CVA (cerebral vascular accident) Brother Leukemia Social History Housing: Apartment Alcohol intake: never Patient Tobacco Use Status: Former Tobacco user Tobacco use type: Cigarette Years Smoked: quit 13 years old e-Cigarette/Vaping Use: Never Used Second Hand Smoke Exposure: No service: No 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al status: employed 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 Cognitive needs: No Hearing needs: No Vision needs: No Female Reproductive History Menstrual Age of Menarche: 10 Review of Systems Const Reports as per HPI ENT Reports as per HPI Card Reports as per HPI Resp Reports as per HPI GI Reports as per HPI Reports as per HPI Physical Exam Vital Signs: Last Vital Signs Pulse 68 11/12/24 09:20 BP 151/71 H 11/12/24 09:20 Pulse Ox 96 11/12/24 09:20 Oxygen Delivery Method Room Air 11/12/24 09:20 BMI result Body Mass Index 34.9 Const General: healthy appearing, no acute distress and well developed Nutritional Appearance: average body habitus Orientation/consciousness: patient oriented x3 HEENT Head: Yes normal to inspection, Yes normocephalic and Yes atraumatic Face and sinus: Yes normal facial exam Eyes General: appearance normal, both eyes and all related structures Neck Neck: Yes normal visual inspection Resp Effort & Inspection: normal respiratory effort, able to speak in complete sentences, no tracheal deviation and symmetric chest movement Auscultation: clear to auscultation bilaterally Cardio Jugular venous distension: no JVD Rate: regular rate Rhythm: regular rhythm Heart sounds: S1 normal heart sound present, S2 normal heart sound present, no gallops and no murmurs GI Inspection: Yes normal to inspection, No distended, Yes obesity and Yes striae Palpation (GI): Soft to palpation, not firm, nontender and No hepatosplenomegaly present Auscultation: normoactive bowel sounds Neuro General: patient oriented x3 Gait exam (Neuro): Normal gait present Psych Appearance: grossly normal Mental Status: mental status grossly normal Speech and movement: Normal speech and movement present Affect: normal affect Attitude: cooperative Thought process: Normal thought process present Thought content: Normal thought content present Insight: Good insight present (Psych) Judgement: Good judgement present (Psych) Assessment & Plan Assessment & Plan (1) Colon cancer screening: Comment: 04/02/15 Colonoscopy complete with excellent prep- internal hemorrhoids otherwise normal exam. recommendations for repeat in 10 years Code(s): Z12.11 - Encounter for screening for malignant neoplasm of colon Category: Medical Plan: Due for routine colonoscopy screening. No alarm features Medications: -prescriptions for laxative tablets and PEG sent to pharmacy; instructions for clear liquid diet given. - understands some medications will need to be held days prior to procedure. Nurse to review med holds per protocol. Patient educated on scheduling process, procedure preparation, including avoiding certain foods and ensuring clear liquid intake Advised on necessity for ride post-procedure due to sedation. Plan Follow-up after colonoscopy if warranted or sooner as needed Time: I spent a total of 35 minutes on the date of encounter which includes: Preparing to see the patient (reviewed previous documentation, test results and medical history) Performing a medically appropriate exam and/or evaluation Ordering medications, tests, and procedures Documenting clinical information in the health record Medications: New bisacodyl Take four tablets once for 1 day per colonoscopy instructions 5 mg PO ONCE 4 tabs 0RF 1 day simethicone (Gas Relief (simethicone)) per colonoscopy prep instructions 125 mg PO ONCE 4 caps 0RF abdominal distention peg 3350-electrolytes [id number] -5.86 gram until fecal effluent is clear 240 mL PO Q10M 4,000 mL 0RF Coding Level of Care Code Established Pt Est Pt Level 4 (10113) Patient Type Established Diagnoses Colon cancer screening Z12.11
[2024-11-12 09:20] VITALS: BP 151/71; PULSE 68; O2SAT 96; BMI 34.9
--- OUTSIDE RECORDS SUMMARY | 2024-11-12 09:33 | XMS_ITS | Encounter Summary ---
Author Organization [employer] [facility] Address [address] [place] [address] Care Team Providers Care Opticianry Teacher Name Role Phone Unavailable Primary Care Provider Unavailabl e Encounter Details Date Type Department Care Team (Latest Contact Info) Description 04/22/2019 Abstract C CONVERSIONS Dental, Provider, DDS Social History Tobacco [...]
--- OUTSIDE RECORDS SUMMARY | 2024-11-12 09:33 | XMS_ITS | Clinical Summary ---
Author Organization [facility] Address [address] [place] [address] Phone Care Team Providers Care Websphere Administrator Name Role Phone Dakota Bills MD Primary Care Provider Allergies Active Allergy Reactions Criticality Noted Date [...] Comments Breast Cancer Screening 1965 Pneumococcal Vaccine: 50+ Ye ars (1 of 2 - PCV) 01/03/1983 Colorectal Cancer Screening: Annual FOBT 01/03/2013 Colorectal Cancer Screening: Colonoscopy 01/03/2013 Colorectal Cancer Screening: Sigmoidoscopy 01/03/2013 Influenza Vaccine (#1) 2024 Hepatitis B Vaccine Aged Out No longe r eligible based on patient's age to complete this topic Insurance Care Teams Websphere Administrator Relationship Specialty Start Date End Date Dakota Bills MD [address] [place], [place] PCP - General Internal Medicine 05/24/22
== END 2024-11-12 09:45 | disposition home or self-care (01) ==
LOC: HO.HGI 09:04
PROVIDERS: PCP Internal Medicine; Visit Provider Nurse Practitioner Family
DX: Z01.818 Encounter for other preprocedural examination (principal); Z12.11 Encounter for screening for malignant neoplasm of colon
CPT/HCPCS: 99213

== ENCOUNTER → 2024-11-12 09:03 | Outpatient (BNVA) | payer OTHER, SELFPAY | PROVIDERS: PCP Internal Medicine; Visit Provider Nurse Practitioner Family | DX: Z12.11 Encounter for screening for malignant neoplasm of colon (principal) | CPT/HCPCS: 99212 ==

== ENCOUNTER 2024-12-11 14:49 | Outpatient (REF) | payer OTHER, SELFPAY ==
--- OUTSIDE RECORDS SUMMARY | 2024-12-11 15:44 | XMS_ITS | Encounter Summary ---
Author Organization [employer] [facility] Address [address] [place] [address] Care Team Providers Care Convolute Tube Winder Name Role Phone Unavailable Primary Care Provider [...]
--- OUTSIDE RECORDS SUMMARY | 2024-12-11 15:44 | XMS_ITS | Clinical Summary ---
Author Organization [facility] Address [address] [place] [address] Phone Care Team Providers Care Solar Installation Crew Supervisor Name Role Phone Dakota Bills MD Primary Care Provider [phone] Allergies Active Allergy Reactions Criticality Noted Date [...] to complete this topic Insurance Care Teams Solar Installation Crew Supervisor Relationship Specialty Start Date End Date Dakota Bills MD [address] [place], [place] PCP - General Internal Medicine 05/24/22
== END 2024-12-11 14:50 | disposition home or self-care (01) ==
LOC: HO.MAMMO 14:49
PROVIDERS: PCP Internal Medicine; Visit Provider Internal Medicine
DX: Z12.31 Encounter for screening mammogram for malignant neoplasm of breast (principal)
CPT/HCPCS: 77063; 77067

== ENCOUNTER → 2024-12-11 15:00 | Outpatient (BNV) | payer OTHER, SELFPAY | PROVIDERS: PCP Internal Medicine; Visit Provider Internal Medicine | DX: Z12.31 Encounter for screening mammogram for malignant neoplasm of breast (principal) | CPT/HCPCS: 77063; 77067 ==

== ENCOUNTER 2025-04-07 12:20 | Outpatient (AMB) | payer OTHER, SELFPAY ==
--- NOTE | 2025-04-07 12:33 | A.OFFPC_ITS ---
Vital Signs 04/07/25 12:34 Height 4 ft 11 in Weight 180 lb 4 oz BMI 36.4 BP 140/70 H Blood Pressure Location Lt brachial Position Sitting Pulse 81 Pulse Source Pulse Oximeter Temp 97.3 F Temp Source Temporal Artery Scan Pulse Oximetry (%) 98 Oxygen Delivery Method Room Air Intake Visit Reasons: Annual PE Intake Note: Patient is here today for a physical. Engineering And Development Director Required: No Wash Tank Tender: Not Required per policy Accompanied by: Self / Same As Patient Allergies mite-Dermatophagoides pteronyssinus (DUST MITE) Allergy (Unknown, Verified 04/07/25 12:34) RASH, SWELLING pollen extracts (POLLEN) Allergy (Unknown, Verified 04/07/25 12:34) RUNNY NOSE, ITCHY EYES Medication List - Last Reconciled 04/07/25 by Dakota Bills MD amlodipine 10 mg PO DAILY bisacodyl 5 mg PO ONCE 1 day blood pressure monitor As directed cyclobenzaprine 5 mg PO BEDTIME hydrochlorothiazide 25 mg PO DAILY levothyroxine 150 mcg PO DAILY lisinopril 40 mg PO DAILY 30 days metoprolol succinate ER 50 mg PO DAILY peg 3350-electrolytes [id number] -5.86 gram 240 mL PO Q10M spironolacton-hydrochlorothiaz 25-25 mg 1 tab PO DAILY Tobacco use date assessed: 04/07/25 Dental Screening Dental Screen Date: 06/14/24 HPI Annual PE HPI Details [id number] HPI Comments History of Present Illness Details History of Present Illness The patient is a 60 year old female presenting for a physical exam. She has a history of obesity, noting a 7-pound weight gain, with a BMI of 35-36. Her medical history includes resistant hypertension, hypercholesterolemia, hypothyroidism, impaired glucose tolerance, and renal artery stenosis. She was seen by nephrology in October for her renal artery stenosis, and a renal renogram was recommended, but she declined the test. She takes amlodipine 10 mg, hydrochl orothiazide 25 mg, lisinopril 40 mg, metoprolol 50 mg, and spironolactone- hydrochlorothiazide 25/25 mg for her blood pressure. In May, she was seen by a nurse practitioner for a fall on ice, which resulted in head trauma. She complained of neck pain and dizziness post-fall and was sent for physical therapy. She has a congenital heart murmur. Regarding health maintenance, she is due for a colonoscopy and saw a power line lineman in October 2024 to schedule it. Her last mammogram was in November 2024 and she saw a morning news producer in August 2024. Her last blood work was done in April 2023. Her family history is significant for esophageal cancer in her grandmother, leukemia in her brother, lupus in her daughter, heart problems in an aunt, grandmother, and uncle, and stroke in an aunt. Her sister has had many heart attacks. Health Maintenance A colonoscopy is scheduled. Fasting blood work will be done. The benefits of the shingles vaccine were discussed, and patient was informed it is available at the pharmacy. The patient declined the influenza vaccine. Will follow up on the results of the blood work and echocardiogram. Social History - Alcohol Use: Denies alcohol use. - Tobacco Use: Denies smoking. - Exercise: Reports she exercises daily by walking from one house to another for her work. - Diet: Recommended a diet low in salt/s odium. Results - Labs: Last complete blood work was in April 2023. [facility] Medical History (Updated 04/07/25 @ 12:44 by Dakota Bills MD) Colon cancer screening Well woman exam Cervicalgia Right hand pain Lateral epicondylitis of right elbow Cervical cancer screening Screening for diabetes mellitus Contact dermatitis Vitamin D deficiency Obesity (BMI 30-39.9) Left fibular fracture Hypercholesterolemia Hypertension Hypothyroid Surgical History History of colonoscopy H/O tubal ligation Family History (Updated 04/07/25 @ 12:58 by Dakota Bills MD) Father Medical history unknown Mother Cancer Diabetes Paternal Grandmother Esophageal cancer Maternal Uncle Myocardial infarction CVD (cardiovascular disease) Maternal Grandmother CVD (cardiovascular disease) Maternal Aunt CVD (cardiovascular disease) CVA (cerebral vascular accident) Brother Leukemia Daughter Lupus (systemic lupus erythematosus) Sister CVD (cardiovascular disease) Social History Housing: Apartment Alcohol intake: never Patient Tobacco Use Status: Former Tobacco user Tobacco use type: Cigarette Years Smoked: quit 13 years old e-Cigarette/Vaping Use: Never Used Second Hand Smoke Exposure: Yes service: No 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al status: employed 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 1. Little interest or pleasure in doing things: not at all 2. Feeling down, depressed, or hopeless: not at all 3. Trouble falling or staying asleep, or sleeping too much: not at all 4. Feeling tired or having little energy: not at all 5. Poor appetite or overeating: not at all 6. Feeling bad about yourself - or that you are a failure or have let yourself or your family down: not at all 7. Trouble concentrating on things, such as reading the newspaper or watching television: not at all 8. Moving or speaking so slowly that other people could have noticed. Or the opposite - being so fidgety or restless that you have been moving around a lot more than usual: not at all 9. Thoughts that you would be better off or of hurting yourself in some way: not at all Total score: 0 Depression Screening Interpretation: Negative Depression Screening Done: Yes Source: Developed by Drs. Suresh Mcwilliams, Lexy Mao, Kenny Perea and colleagues, with an educational kevin from [employer]. Thrive Questionnaire Date Thrive assessed: 06/14/24 I am a: Patient What is your living situation today?: I have a steady place to live Within the past 12 months, did the food you bought not last and you didn't have the money to get more?: Sometimes True Within the past 12 months, did you worry whether your food would run out before you got money to buy more?: Sometimes True Do you have trouble paying for medicines?: I choose not to answer this question Do you have trouble getting transportation to medical appointments?: No Do you have trouble paying your heating and electricity bill?: Yes Do you have trouble taking care of your child, family member or friend?: No Do you have trouble with day-to-day activities such as bathing, preparing meals, shopping, managing finances, etc.?: No Are you currently unemployed and looking for a job?: No Are you interested in more education?: Yes Please select the resources that you would like help with: Food Currently or been in a relationship where the following occur: No concerns reported THRIVE Score: 3 AUDIT C Alcohol Use Questionnaire (AUDIT-C) 1. How often do you have a drink containing alcohol?: Never Total Score: 0 CHRISTIANA-7 AMB Questionnaire CHRISTIANA-7 Date CHRISTIANA - 7 assessed: 06/14/24 Feeling nervous, anxious, or on edge: 0 = Not at all Not being able to stop or control worryin = Several days Worrying too much about different things: 1 = Several days Trouble relaxin = Several days Being so restless that it is hard to sit still: 0 = Not at all Becoming easily annoyed or irritable: 0 = Not at all Feeling afraid as if something awful might happen: 0 = Not at all Total CHRISTIANA-7 score (0-4 normal; 5-9 mild; 10-14 moderate; 15-21 severe): 3 Source: Developed by Drs. Suresh Mcwilliams, Lexy Mao, Kenny Perea and colleagues, with an educational kevin from [employer]. Review of Systems Narrative Review of Systems - General: Denies fever. - HEENT: Reports itchy ears. Denies problems with swallowing or changes in hearing. - Cardiovascular: Denies chest pain or waking up with shortness of breath. - Respiratory: Denies coughing when eating. - Gastrointestinal: Denies nausea, vomiting, heartburn, or problems with bowel movements. - Genitourinary: Reports nocturia two to three times per night. - Musculoskeletal: No new problems reported since her fall. - Neurological: Reports a history of post-fall dizziness. Denies syncope. Const Denies poor appetite and Denies weakness Eyes Denies no additional complaints ENT Reports Normal hearing present, Denies dizziness, Denies nasal congestion, Denies tinnitus and Denies sore throat Card Denies chest pain, Denies syncope, Denies rapid heart rate and Denies dyspnea Resp Denies cough and Denies dyspnea GI Denies change in stool character, Reports constipation, Denies diarrhea, Denies nausea and Denies vomiting Denies urinary frequency, Denies difficulty voiding and Denies dysuria Neuro Reports Normal hearing present, Denies confusion, Denies dizziness, Denies syncope and Denies weakness Psych Denies confusion Physical exam (Primary Care) Vital Signs: Last Vital Signs Temp 97.3 F 12/15/25 12:34 Pulse 81 04/07/25 12:34 BP 140/70 H 04/07/25 12:34 Pulse Ox 98 04/07/25 12:34 Oxygen Delivery Method Room Air 04/07/25 12:34 BMI result Body Mass Index 36.4 Tobacco/Smoking Status: Tobacco use Status Tobacco use date assessed 04/07/25 04/07/25 12:39 Patient Tobacco Use Status Former Tobacco user 04/07/25 12:34 Tobacco use type Cigarette 04/07/25 12:34 e-Cigarette/Vaping Use Never Used 04/07/25 12:34 PHQ-9: PHQ-9 Score PHQ-9: Total score 0 04/07/25 12:45 Depression Screening Interpretation: Negative Thrive Assessment: Date of Thrive Assessment Date Thrive assessed 06/14/24 04/07/25 12:34 Currently or been in a relationship where the following occur: No concerns reported Narrative Physical Exam General: Cooperative, healthy appearing, comfortable, no acute distress and well developed Orientation: Patient oriented x3 Limitations: Complains about neck pain and dizziness Head: Normal to inspection Ears: Hearing grossly normal bilaterally, but patient reports ears are very itchy Nose: Normal external nose present Face and sinus: Normal facial exam Eyes: Appearance normal, both eyes and all related structures Neck: Normal visual inspection, Yes full ROM, but patient complains about neck pain Respiratory: Normal respiratory effort and able to speak in complete sentences. Clear to auscultation bilaterally Cardiovascular: Regular rate and rhythm. Normal S1 and S2, but patient has a heart murmur GI: Normal to inspection. Soft to palpation and nontender Skin: No rashes or lesions noted Neuro: Patient oriented x3 Extremities: Normal to inspection Const General: No confusion Orientation/consciousness: No confusion HENSD Head: Yes normocephalic Ears: external ears normal and TM's normal bilaterally Face and sinus: Yes normal facial exam Mouth: moist mucous membranes Throat: Yes tonsils normal Eyes Conjunctivae: conjunctivae normal Pupils: Equal, round and reactive pupils present and Pupil accommodation reflex normal Direct Ophthalmoscopy: normal light reflex Neck Neck: No lymphadenopathy Thyroid: Thyroid normal Chest Chest palpation & inspection: normal inspection of the chest Resp Effort & Inspection: normal respiratory effort and no audible wheezes Auscultation: clear to auscultation bilaterally, no crackles, no wheezes and lung sounds not diminished Cardio Rate: regular rate Rhythm: regular rhythm Peripheral pulses: radial pulses present and dorsalis pedis present GI Palpation (GI): no masses Auscultation: normal bowel sounds and normoactive bowel sounds Rectal Exam - Female: deferred Skin General skin exam: no rashes or lesions noted Rashes: no rashes Neuro General: No confusion Cranial nerves: Yes Equal, round and reactive pupils present and Yes Normal hearing present Cognition (Neuro): normal cognition Gait exam (Neuro): Normal gait present Motor exam (neuro): 5/5 motor strength present throughout Deep tendon reflexes (DTR's): Right brachioradialis reflex intensity grade: 2+, Left brachioradialis reflex intensity grade: 2+, Right patellar reflex intensity grade: 2+ and Left patellar reflex intensity grade: 2+ Extrem General: No edema Coding Level of Care Code Est Pt Prev Care 40-64y(20113) Diagnoses Annual physical exam Z00.00 Essential hypertension I10 Hypertension type: essential hypertension Renal artery stenosis I70.1 Hypercholesterolemia E78.00 Impaired glucose tolerance R73.02 Acquired hypothyroidism E03.9 Hypothyroidism type: acquired Obesity (BMI 30-39.9) E66.9 Colon cancer screening Z12.11 Assessment & Plan Assessment & Plan (1) Annual physical exam: Code(s): Z00.00 - Encounter for general adult medical examination without abnormal findings Category: Medical Plan: Patient is advised to eat healthy, keep well hydrated, keep active and have adequate sleep. (2) Hypertension: Comment: Resistant hypertension with renal artery stenosis, declined workup Code(s): I10 - Essential (primary) hypertension Category: Medical Qualifiers: Hypertension type: essential hypertension Qualified Code(s): I10 - Essential (primary) hypertension Plan: Patient has been placed on amlodipine 10 mg once a day hydrochlorothiazide 25 mg once a day lisinopril 40 mg once a day metoprolol 50 mg once a day and spironolactone 25/25 once a day (3) Renal artery stenosis: Comment: May 2022: Elevated velocities in the left renal artery suggesting renal artery stenosis. CT angiography could be performed for further evaluation. CT angio 10/2022 Approximately 50% stenosis of bilateral proximal renal arteries. Code(s): I70.1 - Atherosclerosis of renal artery Category: Medical Plan: Patient declined any further workup as per Nephrology (4) Hypercholesterolemia: Code(s): E78.00 - Pure hypercholesterolemia, unspecified Category: Medical Plan: Avoid fried foods, chicken skin, eggs, butter margarine, pastries and meat. Be it pork or beef they have a lot of cholesterol LDL goal of less than 130 and triglyceride of less than 150 will need blood work (5) Impaired glucose tolerance: Code(s): R73.02 - Impaired glucose tolerance (oral) Category: Medical Plan: Decrease the amount of carbohydrate intake, pasta, bread, rice and potatoes are all sugar and that is aside from all the sweet stuff, remember that fruits are good but they are Sweet also. (6) Hypothyroid: Code(s): E03.9 - Hypothyroidism, unspecified Category: Medical Qualifiers: Hypothyroidism type: acquired Qualified Code(s): E03.9 - Hypothyroidism, unspecified Plan: Patient needs blood work. Continue with thyroid medication (7) Obesity (BMI 30-39.9): Comment: advised exercise and diet Code(s): E66.9 - Obesity, unspecified Category: Medical Plan: Diet and exercise (8) Colon cancer screening: Comment: 04/02/15 Colonoscopy complete with excellent prep- internal hemorrhoids otherwise normal exam. recommendations for repeat in 10 years Code(s): Z12.11 - Encounter for screening for malignant neoplasm of colon Category: Medical Plan: Patient did meet with Gastroenterology and colonoscopy scheduled Plan Plan Patient was informed and verbally consented to the use of an ambient scribe for clinic note documentation during this visit. 1. Resistant Hypertension/Renal Artery Stenosis The patient has resistant hypertension secondary to renal artery stenosis. A nephrology consultation last year identified a small blood vessel in the kidney, but she declined further workup, including a recommended renal renogram. She is on five antihypertensive medications: amlodipine 10 mg, hydrochlorothiazide 25 mg, lisinopril 40 mg, metoprolol 50 mg, and spironolactone HCTZ 25/25 mg daily. Will continue current medication regimen. The importance of maintaining a blood pressure below 140 systolic was discussed. 2. Hypercholesterolemia Will continue management with a goal LDL less than 130 and triglycerides less than 150. New blood work is needed to monitor levels. 3. Impaired Glucose Tolerance Continue to manage with diet and exercise recommendations. Will monitor with upcoming fasting blood work. 4. Hypothyroidism The patient reports taking levothyroxine 150 mcg once daily, and this has been a stable dose for a long time. Will continue current dosage and recheck thyroid levels with new blood work. 5. Heart Murmur The patient reports a history of a heart murmur since . An echocardiogram will be ordered to evaluate the murmur, especially in the context of her high blood pressure. The office will call her to schedule the ultrasound of the heart. Discussion Notes I explained to the patient that her blood pressure is very difficult to control, and this is why she was referred to a fingerprinter. I reiterated the finding of renal artery stenosis and that while a procedure was an option, I understood her decision to decline it, which is why she is on a five-medication regimen. I discussed the importance of weight management, noting her BMI is 35-36, which is well above the normal range of 22-25, and how weight contributes to high blood pressure. We also reviewed the need for a low-salt diet to help control her blood pressure. We discussed ordering an ultrasound of the heart to evaluate her congenital hea rt murmur, and she consented to this non-invasive test. I also ordered fasting lab work and explained how the results, particularly her thyroid levels, determine her levothyroxine dose. I advised her on preventative health, noting that the shingles vaccine is a two- part series available at pharmacies. I confirmed she wishes to decline the flu shot this year. I provided anticipatory guidance on healthy eating, staying active, and drinking enough water. Patient Instructions - Please go to the lab to have fasting blood work done. - Our office will call you to schedule an ultrasound of your heart (echocardiogram). - Continue taking your current medications as prescribed. - Follow a diet that is low in salt to help manage your blood pressure. - Continue to stay active, drink enough water, and eat a healthy diet. - The shingles vaccine is a two-shot series and is available at your local pharmacy if you are interested. We do not have it in the clinic. - It is recommended to have an eye exam every couple of years. Orders: Orders Complete Blood Count Auto Diff Today I10 - Essential (primary) hypertension Lipid Panel Today E78.00 - Pure hypercholesterolemia, unspecified, I10 - Essential (primary) hypertension Aldost/Renin Today I10 - Essential (primary) hypertension Comprehensive Met. Panel Today I10 - Essential (primary) hypertension Free T4 (Free Thyroxine) Today I10 - Essential (primary) hypertension Hemoglobin A1c Today I10 - Essential (primary) hypertension Thyroid Stimulating Hormone Today I10 - Essential (primary) hypertension Vitamin B12 and Folate Today I10 - Essential (primary) hypertension Vitamin D 25-OH Total Today I10 - Essential (primary) hypertension Magnesium Today I10 - Essential (primary) hypertension CA echo transthoracic complete Today I10 - Essential (primary) hypertension
[2025-04-07 12:34] VITALS: BP 140/70; PULSE 81; TEMP 36.3; O2SAT 98; BMI 36.4
--- OUTSIDE RECORDS SUMMARY | 2025-04-07 17:50 | XMS_ITS | Encounter Summary ---
Author Organization [employer] [facility] Address [address] [place] [address] Care Team Providers Care Genetics Physician Name Role Phone Unavailable Primary Care Provider [...]
--- OUTSIDE RECORDS SUMMARY | 2025-04-07 17:50 | XMS_ITS | Clinical Summary ---
Author Organization [employer] Address [address] [place] [address] Care Team Providers Care Director Of Hemophilia Name Role Phone Unavailable Primary Care Provider [...] Panel 1964 SDOH Screening 1964 Sigmoidoscopy 1964 Disability Screening 1964 Alcohol/Substance Use Screening 1976 Tobacco Screening 1976 Hepatitis C Screening 01/03/1982 Pap Smear 01/03/1985 Cervical Cancer Screening 01/03/1994 HPV/Cotest 01/03/1994 Mammogram 2004 Pneumococcal Vaccine: 50+ Years (1 of 1 - PCV) 01/03/2014 Zoster Vaccines (1 of 2) 01/03/2014 Dental Oral Exam 08/30/2019 02/28/2019 Dental Prophylaxis 10/23/2019 04/22/2019 Dental X-Ray: Bitewings 03/01/2020 02/28/2019 Dental X-Ray: Full Mouth 03/01/2022 02/28/2019 COVID-19 Vaccine (1 - 2024-2 6 season) 2024 Influenza Vaccine (#1) 2024 DTaP/Tdap/Td Vaccines (2 - T d or [...] patient's age to complete this topic Meningococcal B Vaccine Aged Out No l onger eligible based on patient's age to complete [...] of Phone Billing Address Personal/Family Self [address] [place] [address] * Guarantor: Kiesha Bermudez I Account Type Relation to Patient Date of Phone Billing Address Personal/Family Self [address] [facility] [place] [address] * Guarantor: Kiesha Bermudez I Account Type Relation to Patient Date of Phone Billing Address Personal/Family Self [address] [facility] [place] [address] * Guarantor: Kiesha Bermudez I Account Type Relation to Patient Date of Phone Billing Address Personal/Family Self [address] [facility] [place] [address]
== END 2025-04-07 13:16 | disposition home or self-care (01) ==
LOC: HO.HMCH 12:21
PROVIDERS: PCP Internal Medicine; Visit Provider Internal Medicine
DX: Z00.00 Encounter for general adult medical examination without abnormal findings (principal); I10 Essential (primary) hypertension; E66.9 Obesity, unspecified; Z68.36 Body mass index [BMI] 36.0-36.9, adult; I70.1 Atherosclerosis of renal artery; E78.00 Pure hypercholesterolemia, unspecified; R73.02 Impaired glucose tolerance (oral); E03.9 Hypothyroidism, unspecified; Z12.11 Encounter for screening for malignant neoplasm of colon

== ENCOUNTER → 2025-04-07 12:20 | Outpatient (BNVA) | payer OTHER, SELFPAY | PROVIDERS: PCP Internal Medicine; Visit Provider Internal Medicine | DX: Z00.00 Encounter for general adult medical examination without abnormal findings (principal); Z12.11 Encounter for screening for malignant neoplasm of colon; I10 Essential (primary) hypertension; I70.1 Atherosclerosis of renal artery; E78.00 Pure hypercholesterolemia, unspecified; R73.03 Prediabetes; E03.9 Hypothyroidism, unspecified; E66.9 Obesity, unspecified; Z68.36 Body mass index [BMI] 36.0-36.9, adult | CPT/HCPCS: 99396 ==